=== PATIENT | female | born 1980 | race Caucasian/White ===

== ENCOUNTER → 2017-07-07 | Outpatient (CLI) | payer MEDICAID ==
--- NOTE | 2017-07-07 14:45 | XR ---
EXAMINATION TYPE: XR foot complete LT DATE OF EXAM: 07/07/2017 CLINICAL HISTORY: Injury with pain worse over third through fifth toes. TECHNIQUE: Frontal, lateral, and oblique images of the left foot are obtained. COMPARISON: None FINDINGS: There appears to be ossific fusion at this the fifth DIP joint. Seen best on frontal and oblique images there is oblique irregular linear lucency through this level with mild to moderate ass ociated soft tissue swelling consistent with acute nondisplaced fracture. Remainder of left foot is i ntact. There is small to moderate-sized superior calcaneal spur noted. IMPRESSION: There is a acute nondisplaced oblique fracture through fifth toe at level of ossified fi fth DIP joint. (Initial encounter closed type post traumatic fracture)
== END ==
LOC: RADXRMAIN 14:23
PROVIDERS: ATTEND Family Medicine
DX: S92.592A Other fracture of left lesser toe(s), initial encounter for closed fracture (principal)

== ENCOUNTER 2017-08-13 09:31 | Emergency (ER) | payer MEDICAID ==
--- NOTE | 2017-08-13 09:51 | ED ---
General Adult HPI - General Chief complaint: Animal Bite Stated complaint: DOG BITE Time Seen by Provider: 08/13/17 09:43 Source: patient, RN notes reviewed Mode of arrival: ambulatory Limitations: no limitations - History of Present Illness Initial comments: Patient is a 36-year-old female who presents emergency room today with chief complaint of dog bite to the right hand. She does admit that she was at home and to her dog got into a fight strength break them up and she does have a few punctures to the second and third digits of the right hand. She does admit that she is right-handed. She missed pain locally to this area. She states her tetanus is up-to-date. Patient denies any other complaints or symptoms. Patient denies any recent fever, chills, shortness of breath, chest pain, back pain, abdominal pain, nausea or vomiting, dysuria or hematuria, constipation or diarrhea, headaches or visual changes, or any other complaints. - Related Data Home Medications Medication Instructions Recorded Confirmed LORazepam [Ativan] 0.5 mg PO BID PRN 08/13/17 08/13/17 Sertraline HCl [Zoloft] 150 mg PO DAILY 08/13/17 08/13/17 buPROPion XL [Wellbutrin Xl] 150 mg PO DAILY 08/13/17 08/13/17 Previous Rx's Medication Instructions Recorded Ciprofloxacin HCl [Cipro] 500 mg PO Q12HR #20 day 08/13/17 Clindamycin HCl [Cleocin] 300 mg PO Q6HR 10 Days 08/13/17 Allergies Allergy/AdvReac Type Severity Reaction Status Date / Time Penicillins Allergy Rash/Hives Verified 08/13/17 10:27 Review of Systems ROS Statement: Those systems with pertinent positive or pertinent negative responses have been documented in the HPI. ROS Other: All systems not noted in ROS Statement are negative. Past Medical History Past Medical History: No Reported History History of Any Multi-Drug Resistant Organisms: None Reported Past Surgical History: No Surgical Hx Reported Past Psychological History: Anxiety, Depression Smoking Status: Never smoker Past Alcohol Use History: Occasional Past Drug Use History: None Reported General Exam - General Exam Comments Initial Comments: General: The patient is awake and alert, in no distress, and does not appear acutely ill. Neck: The neck is supple, there is no tenderness or JVD. Cardiovascular: There is a regular rate and rhythm. No murmur, rub or gallop is appreciated. Respiratory: Lungs are clear to auscultation, respirations are non-labored, breath sounds are equal. No wheezes, stridor, rales, or rhonchi. Musculoskeletal/skin: Patient does have superficial puncture wound to the volar aspect around the PIP joint of the second digit. There is small superficial abrasion to the posterior aspect in this area as well. Small superficial abrasion to the third digit of the posterior aspect at the PIP joint. Patient shows good range of motion. Cap refill less than 2 seconds. Sensations are intact. Pulses equal bilaterally 2+. Neurological: A&O x 3. CN II-XII intact, There are no obvious motor or sensory deficits. Coordination appears grossly intact. Speech is normal. Psychiatric: Normal mood and affect. Limitations: no limitations Course Vital Signs 08/13/17 09:34 Temperature 97.5 F L Pulse Rate 107 H Respiratory 16 Rate Blood Pressure 126/58 O2 Sat by Pulse 99 Oximetry Medical Decision Making - Medical Decision Making Patient's x-rays negative for any acute fracture dislocation. Results were discussed with the patient. Patient's tetanus is up-to-date. Patient's wounds were irrigated and soaked here in emergency room. No deep tissue involvement. Shows good range of motion. Patient does have ALLERGY to penicillins. Will be started on antibiotics of clindamycin and ciprofloxacin to cover for infection. Signs symptoms of infection were discussed with patient and advised to return if any symptoms increase worsen. She states understanding and is in agreement. Disposition Clinical Impression: Dog bite Disposition: HOME SELF-CARE Condition: Good Instructions: Animal Bite (ED) Additional Instructions: Please use medication as discussed. Please follow-up with family doctor in the next 2 days of symptoms have not improved. Please return to emergency room if the symptoms increase or worsen or for any other concerns. Prescriptions: Ciprofloxacin HCl [Cipro] 500 mg PO Q12HR #20 day Clindamycin HCl [Cleocin] 300 mg PO Q6HR 10 Days Referrals: Meir Aviles MD [Primary Care Provider] - 1-2 days Time of Disposition: 10:33
[2017-08-13] MEDS ORDERED: ONDANSETRON ODT 4 MG TAB PO STA (09:59)
--- NOTE | 2017-08-13 10:13 | XR ---
EXAMINATION TYPE: XR hand complete RT , 3 VIEWS DATE OF EXAM ORDERED: 08/13/2017 HISTORY: Pain. COMPARISON: None. FINDINGS: No fracture, dislocation or radiopaque foreign body is seen. IMPRESSION: NORMAL RIGHT HAND.
[2017-08-13 10:57] VITALS: BP 114/64; PULSE 78; RESP 18; TEMP 97.4
== END 2017-08-13 10:56 | disposition home or self-care (01) ==
LOC: EC 09:31
DX: S61.230A Puncture wound without foreign body of right index finger without damage to nail, initial encounter (principal); S60.412A Abrasion of right middle finger, initial encounter; F41.9 Anxiety disorder, unspecified; F32.9 Major depressive disorder, single episode, unspecified; Z88.0 Allergy status to penicillin; Z79.899 Other long term (current) drug therapy; W54.0XXA Bitten by dog, initial encounter; Y92.009 Unspecified place in unspecified non-institutional (private) residence as the place of occurrence of the external cause
CPT/HCPCS: 99283

== ENCOUNTER 2021-08-23 19:32 | Inpatient (IN) | payer MEDICAID ==
--- NOTE | 2021-08-23 22:38 | ED ---
Anxiety HPI - General Chief Complaint: Anxiety Stated Complaint: High Blood Pressure, Anxiety Time Seen by Provider: 08/23/21 20:57 Source: patient, RN notes reviewed Mode of arrival: wheelchair - History of Present Illness Initial Comments: Patient is a 40-year-old female that presents to emergency room complaining of anxiety. She notes that she wants to fall asleep and not wake up anymore. She noted that her son is a mental case and is causing her a lot of stress. She is not sure she can handle any more. Patient was very guarded on exam interview. She is otherwise well-appearing. She denied chest pain shortness of breath headache nausea vomiting diarrhea constipation fever fatigue chills. - Related Data Home Medications: Home Medications Medication Instructions Recorded Confirmed buPROPion XL [Wellbutrin Xl] 150 mg PO DAILY 08/13/17 08/23/21 DULoxetine HCL [Cymbalta] 60 mg PO DAILY 08/23/21 08/23/21 Glycopyrrolate 1 mg PO BID 08/23/21 08/23/21 Montelukast Sodium [Singulair] 10 mg PO HS 08/23/21 08/23/21 levoFLOXacin 500 mg PO DAILY 08/23/21 08/23/21 Allergies/Adverse Reactions: Allergies Allergy/AdvReac Type Severity Reaction Status Date / Time Penicillins Allergy Rash/Hives Verified 08/23/21 21:45 Review of Systems ROS Statement: Those systems with pertinent positive or pertinent negative responses have been documented in the HPI. ROS Other: All systems not noted in ROS Statement are negative. Past Medical History Past Medical History: No Reported History Additional Past Medical History / Comment(s): anxiety History of Any Multi-Drug Resistant Organisms: None Reported Past Surgical History: No Surgical Hx Reported Past Psychological History: Anxiety, Depression Smoking Status: Never smoker Past Alcohol Use History: Occasional Past Drug Use History: None Reported General Exam General appearance: alert, in no apparent distress, obese Head exam: Present: atraumatic, normocephalic, normal inspection Eye exam: Present: normal appearance, PERRL, EOMI. Absent: scleral icterus, conjunctival injection, periorbital swelling ENT exam: Present: normal exam, mucous membranes moist Neck exam: Present: normal inspection Respiratory exam: Present: normal lung sounds bilaterally. Absent: respiratory distress, wheezes, rales, rhonchi, stridor Cardiovascular Exam: Present: regular rate, normal rhythm, normal heart sounds. Absent: systolic murmur, diastolic murmur, rubs, gallop, clicks GI/Abdominal exam: Present: soft, normal bowel sounds. Absent: distended, tenderness, guarding, rebound, rigid Extremities exam: Present: normal inspection, full ROM, normal capillary refill. Absent: tenderness, pedal edema, joint swelling, calf tenderness Neurological exam: Present: alert, oriented X3 Psychiatric exam: Present: depressed, suicidal ideation. Absent: homicidal ideation Skin exam: Present: warm, dry, intact, normal color. Absent: rash Course Vital Signs 08/23/21 20:04 Temperature 98.7 F Pulse Rate 110 H Respiratory 22 Rate Blood Pressure 150/95 O2 Sat by Pulse 97 Oximetry Medical Decision Making - Medical Decision Making 40-year-old female displaying suicidal ideations and depression. Urine drug screen, breath alcohol test ordered. EPS was notified. EPS will admit patient to Case discussed with Dr. Tripathi Disposition Clinical Impression: Suicidal ideation, Depression Disposition: ADMITTED IP TO THIS HOSP Condition: Stable Instructions (If sedation given, give patient instructions): Generalized Anxiety Disorder (ED) Is patient prescribed a controlled substance at d/c from ED?: No Referrals: Meir Aviles MD [Primary Care Provider] - 1-2 days Time of Disposition: 22:38
[2021-08-23 23:18] LABS: Amphetamine Screen,Urine Not Detected (NotDetected); Barbiturate Screen,Urine Not Detected (NotDetected); Benzodiazepines Screen,Urine Not Detected (NotDetected); Cocaine Screen,Urine Not Detected (NotDetected); Methadone Screen, Urine Not Detected (NotDetected); Opiate Screen,Urine Not Detected (NotDetected); Oxycodone Screen, Urine Not Detected (NotDetected); Phencyclidine Screen,Urine Not Detected (NotDetected); Tricyclic Antidepressant,Urine Not Detected (NotDetected); Urn Cannabinoid Scrn Not Detected (NotDetected)
[2021-08-24] MEDS ORDERED: LORazepam 2 MG/ML INJ IM PRN (02:00)
[2021-08-24] MEDS ORDERED: MAGNESIUM HYDROXIDE 2,400 MG/10 ML CUP PO PRN (02:00)
[2021-08-24] MEDS ORDERED: haloperidoL 1 MG TAB PO PRN (02:00)
[2021-08-24] MEDS ORDERED: LORazepam 1 MG TAB PO PRN (02:00)
[2021-08-24] MEDS ORDERED: HALOPERIDOL LACTATE 5 MG/ML 1 ML VIAL IM PRN (02:00)
[2021-08-24] MEDS ORDERED: MAG HYDROX/AL HYDROX/SIMETH 30 ML CUP PO PRN (04:00)
[2021-08-24 08:25] LABS: Basophils # (A) 0.1 k/uL (0-0.2); Basophils % (A) 1 %; Eosinophils # (A) 0.5 k/uL (0-0.7); Eosinophils % (A) 3 %; HCT 36.6 % (34.0-46.0); HGB 11.3 gm/dL (11.4-16.0); Hypochromasia Moderate; Lymphocytes # (A) 3.2 k/uL (1.0-4.8); Lymphocytes % (A) 24 %; MCH 22.3 pg (25.0-35.0); MCHC 30.8 g/dL (31.0-37.0); MCV 72.4 fL (80.0-100.0); Mean Platelet Volume 6.4; Microcytosis Moderate; Monocytes # (A) 0.4 k/uL (0-1.0); Monocytes % (A) 3 %; Neutrophils % (A) 67 %; Platelet Count 481 k/uL (150-450); RBC 5.05 m/uL (3.80-5.40); RDW 15.5 % (11.5-15.5); WBC 13.4 k/uL (3.8-10.6)
[2021-08-24 08:33] LABS: ALT 21 U/L (4-34); AST 27 U/L (14-36); African American GFR (CKD) >90 (>60 ml/min/1.73 sqM); Albumin 4.1 g/dL (3.5-5.0); Alkaline Phosphatase 58 U/L (38-126); Anion Gap 8 mmol/L; Blood Urea Nitrogen 12 mg/dL (7-17); Calcium 9.6 mg/dL (8.4-10.2); Carbon Dioxide 30 mmol/L (22-30); Chloride 102 mmol/L (98-107); Glucose 106 mg/dL (74-99); Non-African American GFR(CKD) >90 (>60 ml/min/1.73 sqM); Sodium 140 mmol/L (137-145); Total Bilirubin 0.5 mg/dL (0.2-1.3); Total Protein 7.6 g/dL (6.3-8.2)
[2021-08-24] MEDS: LEVOFLOXACIN 500 MG TAB PO SCH (08:33)
[2021-08-24] MEDS: buPROPion XL 150 MG TAB.ER.24H PO SCH (08:33)
[2021-08-24] MEDS: GLYCOPYRROLATE 1 MG TAB PO SCH ×2 (08:33→21:08)
[2021-08-24] MEDS ORDERED: NICOTINE 14MG/24HR PATCH TRANSDERM SCH (09:00)
[2021-08-24] MEDS ORDERED: DULoxetine HCL 60 MG CAPSULE.DR PO SCH (09:00)
[2021-08-24] MEDS ORDERED: FERROUS SULFATE 325 MG TAB PO STA (11:53)
[2021-08-24] MEDS ORDERED: DULoxetine HCL 30 MG CAPSULE.DR PO ONE (12:00)
[2021-08-24] MEDS: OLANZapine 5 MG TAB PO SCH ×2 (12:25→21:08)
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
[2021-08-24] MEDS: MONTELUKAST 10 MG TAB PO SCH (21:08)
[2021-08-24] MEDS: ACETAMINOPHEN TAB 325 MG TAB PO PRN (21:14)
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
[2021-08-25] MEDS: PANTOPRAZOLE 40 MG TABLET PO SCH ×2 (08:42→17:29)
[2021-08-25] MEDS: OLANZapine 5 MG TAB PO SCH ×2 (08:42→20:35)
[2021-08-25] MEDS: buPROPion XL 150 MG TAB.ER.24H PO SCH (08:42)
[2021-08-25] MEDS: LEVOFLOXACIN 500 MG TAB PO SCH (08:42)
[2021-08-25] MEDS: DULoxetine HCL 30 MG CAPSULE.DR PO SCH (08:42)
[2021-08-25] MEDS: DOCUSATE 100 MG CAP PO SCH (08:42)
[2021-08-25] MEDS: GLYCOPYRROLATE 1 MG TAB PO SCH ×2 (08:42→20:35)
[2021-08-25] MEDS: BENZOCAINE/MENTHOL LOZENG 1 EACH LOZENGE MUCOUS MEM PRN ×3 (08:43→20:35)
[2021-08-25 10:47] LABS: % Iron Saturation 7.87 (12.00-45.00)
--- NOTE | 2021-08-25 15:05 | PN ---
PROGRESS NOTE DATE OF SERVICE: 08/25/2021 CHIEF COMPLAINT: The patient had high anxiety and depression. She was making statements that she wanted to fall asleep and not wake up. INTERVAL HISTORY: Patient has been doing fair. She had a quiet day yesterday. She comes out on the unit some. She tends to keep to herself. She will interact a little with others. She chose not to attend groups yesterday. She has been cooperative with care. She slept fair last night. Today she has been up. She comes out in the day area. So far today she has chosen not to attend groups also. Today when I talked to her she said that she has had a chance to think through some of her issues and has gained a little perspective. She said that she is not clear what happen where she went into a very severe panic. She says she cannot really point to anything specific that made things as bad as they were for her. She acknowledges that she has been struggling for quite a long time, especially dealing with her 16-year-old son who is on several psychotropic medications for mood difficulties. The patient says that actually things have been a little quieter with him in the home of late although it to be an up and down issue for her. She also acknowledges that her 's drinking is problematic as well. He is not able to help much in terms of supporting the 16-year-old. He has not been able to be very clear about the medications that the 16-year-old is taking since she has been in the hospital. She says most all that falls on her shoulders. She has not had difficulties with the change in her medications and in general tolerates her medications fairly well. MENTAL STATUS: Patient sat with a little restlessness. She gave fair eye contact. She answered questions appropriately. Her thoughts were clear and coherent. She was somewhat spontaneous at times. It was noteworthy that she was talking in a clear voice. She had a little more intonation in her voice. She did not have the whispering voice yesterday. She showed a little broader range of affect. Her mood was down, though also she seemed to be a little less depressed than how she presented yesterday. She continues to be moderately distressed. She acknowledges that she gets lost in her worries. There was no indication of thought disorder. She voices no thoughts of harm. Cognition was clear. ASSESSMENT: I will continue the current diagnosis and treatment plan. I will continue psychotropic medications the same. I reviewed issues with her antidepressant. I also reviewed indication for the start of a olanzapine. I reviewed potential side effects as well as metabolic and movement disorder issues. We talked about olanzapine as being potentially a short-term medication to help augment her antidepressant and potentially calm down some of her immediate stress reactions. We discussed that over the next few weeks if she is not if seeing much improvement overall, she may need to have further increase in her Cymbalta. I discussed discharge planning issues with the patient. NOAH / FANI: [id number] /
[2021-08-25] MEDS: MONTELUKAST 10 MG TAB PO SCH (20:35)
[2021-08-25] MEDS: ACETAMINOPHEN TAB 325 MG TAB PO PRN (20:35)
[2021-08-26] MEDS: GLYCOPYRROLATE 1 MG TAB PO SCH ×2 (08:10→20:04)
[2021-08-26] MEDS: DULoxetine HCL 30 MG CAPSULE.DR PO SCH (08:10)
[2021-08-26] MEDS: LEVOFLOXACIN 500 MG TAB PO SCH (08:10)
[2021-08-26] MEDS: OLANZapine 5 MG TAB PO SCH (08:10)
[2021-08-26] MEDS: buPROPion XL 150 MG TAB.ER.24H PO SCH (08:10)
[2021-08-26] MEDS: DOCUSATE 100 MG CAP PO SCH (08:10)
[2021-08-26] MEDS: PANTOPRAZOLE 40 MG TABLET PO SCH ×2 (08:11→20:02)
--- NOTE | 2021-08-26 10:37 | P.PN ---
Progress Note - Text Progress Note Date: 08/26/21 Interval History: Patient was seen lying in her bed this morning and was directable and agreeable to speak with manual writer in the office. And appeared to be fairly tired during the interview and states that her energy level is poor. She asked questions about her medications. She claimed that she came into the hospital because of her severe anxiety and "not wanting to wake up". She states that she is no longer feeling suicidal however does appear to be mildly depressed. She has a constricted affect. She states that she is able to sleep throughout the night fairly well. She claims that her anxiety has been mildly improving. She states that she is trying to go to some groups. She claims that she is feeling "anxious about my son" that she needs to take care of at home. At this time patient denies any current suicidal or homical ideations, intent or plan. Patient denies any auditory, visual hallucinations and denies any paranoia or delusions. Patient denies any side effects from the medications and has been compliant with meds. Mental Status Exam: General Appearance: Patient appears to be overweight, stated age is alert, directable, and attempts to be cooperative. Behavior: Patient is calmly seated without any agitated behavior. Constricted Speech: Patient's speech is fluent and nonpressured. Monotone Mood/Affect: Mood is improving mildly, affect is congruent and constricted. Suicidality/Homicidality: Patient denies having any suicidal or homicidal ideation intent or plan. Perceptions: Patient denies any visual hallucinations and denies any auditory hallucinations Though content/process: There is no evidence of any delusional thought content. [place]. Memory and concentration: AOX3, grossly intact for the purposes of this session Judgment and insight: Improving mildly Assessment Major depressive disorder, recurrent, severe without psychotic features Anxiety disorder unspecified, rule out panic disorder Plan: -Patient continues to meet criteria for inpatient psychiatric admission for symptom stabilization and safety. Patient has signed adult voluntary form and medication consent and was placed in patient's chart. -Medications: Discontinued Wellbutrin as this may be increasing patient's anxiety. Increase Cymbalta to 60 mg twice a day for depression/anxiety. Decrease Zyprexa to 5 mg daily at bedtime for mood stabilization/anxiety/insomnia. -When necessary Ativan and Haldol for agitation/aggression. -NRT - not needed as patient does not smoke. -SW on board for discharge planning. Encouraged the patient to participate in milieu. Likely discharge tomorrow back home.
[2021-08-26] MEDS: BENZOCAINE/MENTHOL LOZENG 1 EACH LOZENGE MUCOUS MEM PRN (20:02)
[2021-08-26] MEDS: DULoxetine HCL 60 MG CAPSULE.DR PO SCH (20:02)
[2021-08-26] MEDS: MONTELUKAST 10 MG TAB PO SCH (20:02)
[2021-08-26] MEDS ORDERED: OLANZapine 5 MG TAB PO SCH (21:00)
[2021-08-27 06:03] VITALS: BP 117/74; PULSE 95; RESP 18; TEMP 97.3
[2021-08-27] MEDS: LEVOFLOXACIN 500 MG TAB PO SCH (08:28)
[2021-08-27] MEDS: DULoxetine HCL 60 MG CAPSULE.DR PO SCH (08:28)
[2021-08-27] MEDS: GLYCOPYRROLATE 1 MG TAB PO SCH (08:28)
[2021-08-27] MEDS: PANTOPRAZOLE 40 MG TABLET PO SCH (08:28)
[2021-08-27] MEDS: DOCUSATE 100 MG CAP PO SCH (08:28)
[2021-08-27] MEDS: BENZOCAINE/MENTHOL LOZENG 1 EACH LOZENGE MUCOUS MEM PRN (08:29)
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
== END 2021-08-27 10:25 | disposition home or self-care (01) | DRG 885 ==
LOC: EC 19:32 → 3MHU 08-24 01:31
PROVIDERS: ADMIT Psychiatry & Neurology Psychiatry; ATTEND Psychiatry & Neurology Psychiatry
DX: F33.2 Major depressive disorder, recurrent severe without psychotic features (principal); R45.851 Suicidal ideations; F41.9 Anxiety disorder, unspecified; J45.909 Unspecified asthma, uncomplicated; G47.00 Insomnia, unspecified; Z20.822 Contact with and (suspected) exposure to COVID-19; Z79.899 Other long term (current) drug therapy; Z88.0 Allergy status to penicillin; Z88.1 Allergy status to other antibiotic agents; Z63.8 Other specified problems related to primary support group; Z81.8 Family history of other mental and behavioral disorders
CPT/HCPCS: 80053; 80061; 80306; 82075; 83036; 83540; 83550; 84443; 85025; 87635; 99285

== ENCOUNTER → 2021-10-18 | Outpatient (CLI) | payer MEDICAID ==
--- NOTE | 2021-10-18 12:00 | XR ---
EXAMINATION TYPE: XR foot complete LT DATE OF EXAM: 10/18/2021 CLINICAL HISTORY: Numbness and pain. TECHNIQUE: Frontal, lateral, and oblique images of the left foot are obtained. COMPARISON: Left foot x-ray July 07, 2017 FINDINGS: There is no acute fracture/dislocation evident in the left foot. Flexion in the toes is re demonstrated. Moderate-sized superior calcaneal spur redemonstrated. Mild to moderate dorsal surface spurring mid foot level more prominent from prior study. Mild diffuse subcutaneous edema is present. IMPRESSION: As above.
== END | disposition home or self-care (01) ==
LOC: RADXRMAIN 11:25
PROVIDERS: ATTEND Family Medicine
DX: M77.32 Calcaneal spur, left foot (principal); M21.272 Flexion deformity, left ankle and toes

== ENCOUNTER → 2021-10-27 | Outpatient (CLI) | payer MEDICAID ==
--- NOTE | 2021-10-27 20:09 | CONS ---
CONSULTATION DATE OF SERVICE: 10/27/2021 This 40-year-old lady has been evaluated in Sleep Center for excessive fatigue and sleepiness all the time. HISTORY OF PRESENT ILLNESS/SLEEP-WAKE EVALUATION: Patient's usual sleep schedule is 9:30 or 10 p.m. until 6 a.m. She does have problems with falling asleep, has TV set in bedroom. She usually sleeps on the side and stomach positions. She snores and wakes up from sleep 2 or 3 times with up to 2 episodes of nocturia. Nobody has mentioned to her that she has episodes of stopped breathing during sleep. In the morning she wakes up tired, has difficulties paying attention, falling asleep during the day, worries about her sleep, has problems with concentration, irritability, depression and anxiety. [place] Sleepiness Scale is significantly increased at 16. The patient may take naps any time. No history of hypnagogic hallucinations, sleep paralysis or cataplexy. The patient may move during the night; possibly periodic limb movements. PAST MEDICAL HISTORY: Positive for headaches, sinusitis, depression. PAST SURGICAL HISTORY: Bilateral surgery for carpal tunnel syndrome. MEDICATIONS: 1. Zyprexa 5 mg once a day. 2. Singulair 10 mg once a day. 3. Cymbalta 60 mg twice a day. 4. Colace 100 mg once a day. 5. Xanax 0.5 mg up to 3 times a day. REVIEW OF SYSTEMS: Awakenings from sleep, tiredness and sleepiness during the day. No fevers. No double vision. No recent chest pain. No shortness of breath. No abdominal pain. No bleeding episodes. No blood in the urine. No seizure episodes. SOCIAL HISTORY: Negative for smoking. Alcohol consumption extremely rarely. FAMILY HISTORY: Hypertension, hyperlipidemia, diabetes. PHYSICAL EXAMINATION: GENERAL APPEARANCE: Pleasant lady without distress. VITAL SIGNS: BP 141/91, HR 97, RR 20, height 5 feet 1-1/2 inches, weight 232.6 pounds, body mass index 43.1, temperature 97.4, oxygen saturation at room air 98%. HEENT: PERRLA, EOMI, evaluation of oropharynx showed tongue protrudes midline. Extremely low position of soft palate; Mallampati IV. NECK: Supple, no JVD. Thyroid is not palpable. Neck measures 17-1/2 inches in circumference. LUNGS: Clear to percussion and to auscultation. Good air exchange. No wheezing or rhonchi. HEART: S1, S2 regular. No murmurs, gallops, or rubs. ABDOMEN: Soft and nontender. Bowel sounds are present. No organomegaly appreciated. EXTREMITIES: No clubbing or cyanosis. 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 Cranial nerves 2 to 7 intact. There is no fasciculation or atrophy. noted. No focal deficits observed. IMPRESSION: 1. Snoring, awakenings from sleep, extremely low position of soft palate, wide neck, sleepiness; obstructive sleep apnea-hypopnea syndrome. 2. Significant excessive daytime sleepiness with [place] Sleepiness Scale of 16, dictating necessity to include hypersomnia in differential diagnosis. 3. Possible periodic limb movements. 4. Depression. 5. Sinus problems. 6. Headaches. 7. Status post bilateral surgery for carpal tunnel syndrome. PLAN: 1. Polysomnography for evaluation of patient's breathing during sleep. 2. Multiple sleep latency test if sleep study is negative for obstructive sleep apnea- hypopnea syndrome. 3. Losing weight. 4. Sleep hygiene with regular time in bed for at least 8 hours. 5. No driving if feeling sleepiness. 6. PAP titration if sleep study is positive for obstructive sleep apnea-hypopnea syndrome. Thank you very much for referring this patient for consultation. Sincerely, Romel Mendez MD, PhD, FAASM Diplomat of [place] Board of Medical Specialties Sleep Medicine Board of [place] Board of Internal Medicine Managed Care Analyst of [facility] [place] MMODL / IJN: [id number] /
== END ==
LOC: SLEEP 15:35
PROVIDERS: ATTEND Internal Medicine
DX: G47.33 Obstructive sleep apnea (adult) (pediatric) (principal); F32.A Depression, unspecified; J34.9 Unspecified disorder of nose and nasal sinuses; R51.9 Headache, unspecified; Z98.890 Other specified postprocedural states; Z79.899 Other long term (current) drug therapy; Z88.0 Allergy status to penicillin; Z88.1 Allergy status to other antibiotic agents
CPT/HCPCS: 99211

== ENCOUNTER → 2021-11-17 | Outpatient (CLI) | payer MEDICAID | END | disposition home or self-care (01) | LOC: LABWHC1 11:10 | PROVIDERS: ATTEND Family Medicine | DX: U07.1 COVID-19 (principal) | CPT/HCPCS: U0003; C9803 ==

== ENCOUNTER → 2021-12-22 | Outpatient (CLI) | payer MEDICAID ==
--- NOTE | 2021-12-22 15:29 | SFUN ---
SLEEP CENTER FOLLOW UP NOTE DATE OF VISIT: 12/22/2021 This 40-year-old lady has been followed in Sleep Center and came in to discuss results of her sleep studies and plan. The patient had a polysomnogram which showed that her respiration is in normal range. No significant periodic limb movements have been documented. Multiple sleep latency test on the following day confirmed significant sleepiness; mean sleep latency by 4 naps 3.275 minutes and by 5 naps 4.7 minutes. No sleep-onset REM periods were documented. The patient continues to feel sleepiness during the day. [place] Sleepiness Scale today is 14. MEDICATIONS: 1. Zyprexa 5 mg once a day. 2. Singulair 10 mg once a day. 3. Cymbalta 60 mg twice a day. 4. Colace 100 mg once a day. 5. Xanax 0.5 mg up to 3 times a day. PHYSICAL EXAMINATION: GENERAL: Pleasant patient in no distress. VITAL SIGNS: BP 152/86, HR 94, RR 18, weight 244.0, temperature 97.3, oxygen saturation at room air 98%. HEENT: PERRLA, EOMI, evaluation of oropharynx showed tongue protrudes midline. Extremely low position of soft palate; Mallampati IV. NECK: Supple, no JVD. Thyroid is not palpable. LUNGS: Clear to percussion and to auscultation. Good air exchange. No wheezing or rhonchi. HEART: S1, S2 regular. No murmurs, gallops, or rubs. ABDOMEN: Soft and nontender. Bowel sounds are present. No organomegaly appreciated. EXTREMITIES: No clubbing or cyanosis. 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 Cranial nerves 2 to 7 intact. There is no fasciculation or atrophy. noted. No focal deficits observed. IMPRESSION: 1. Snoring. 2. No significant respiratory abnormalities were documented during the sleep study. 3. Multiple sleep latency test confirmed sleepiness. Differential diagnosis includes narcolepsy without cataplexy and idiopathic hypersomnia. 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 5. Depression. 6. History of sinus problems. 7. Headaches. 8. Status post bilateral surgery for carpal tunnel syndrome. PLAN: 1. I will start the patient on Adderall 5 mg twice a day at 7 a.m. and 1 p.m. 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 2. Watching and losing weight. 3. Sleep hygiene with time in bed for at least 8 hours, preferably at the same time 7 days a week. 4. Precautions related to driving. No driving if feeling any sleepiness. Patient is aware of civil and criminal liability for unsafe driving. She promised to follow recommendations. 5. Patient is allowed to take additional naps during the day; I recommended that she have scheduled naps. 6. Follow-up visit in 3 months or earlier for adjustment of dose of medication if necessary. 7. Preferable position during sleep is on the side. Thank you very much for allowing me to participate in the management of your patient. Sincerely, Romel Mendez MD, PhD, FAASM Diplomat of [place] [employer] Specialties Sleep Medicine Board of [place] Board of Internal Medicine Food Operations Manager of [facility] [place] NOAH / FANI: [id number] /
== END ==
LOC: SLEEP 11:08
PROVIDERS: ATTEND Internal Medicine
DX: R40.0 Somnolence (principal); R06.83 Snoring; F32.A Depression, unspecified; R51.9 Headache, unspecified; Z98.890 Other specified postprocedural states; Z87.39 Personal history of other diseases of the musculoskeletal system and connective tissue; Z87.09 Personal history of other diseases of the respiratory system; Z88.0 Allergy status to penicillin; Z88.1 Allergy status to other antibiotic agents

== ENCOUNTER → 2022-03-10 | Outpatient (CLI) | payer MEDICAID ==
--- NOTE | 2022-03-10 11:45 | SFUN ---
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 Mean sleep latency was very short only 3.275 minutes by MSLT. The patient was started on treatment with Adderall 5 mg twice a day. With medication, no significant improvements of alertness. She feels better if she takes two tablets at the same time. [place] Sleepiness Scale today is 13. MEDICATIONS: Adderall 5 mg twice a day, Singulair 10 mg once a day, Cymbalta 60 mg twice a day, trazodone 100 mg once a day, Ativan 0.5 mg twice a day. PHYSICAL EXAMINATION: GENERAL: Patient in no distress. BP 126/81, HR around 100, RR 16, weight 234.8 pounds, temperature 97.1, oxygen saturation at room air 96%. Oropharynx: Low position of soft palate, Mallampati 4. NECK: Supple, no JVD. Thyroid is not palpable. LUNGS: Clear to percussion and to auscultation. Good air exchange. No wheezing or rhonchi. HEART: S1, S2 regular. No murmurs, gallops, or rubs. ABDOMEN: Soft and nontender. Bowel sounds are present. No organomegaly appreciated. EXTREMITIES: No clubbing or cyanosis. CLIENT SERVICES VICE PRESIDENT: Awake, alert, and oriented X3. Cranial nerves 2 to 7 intact. There is no fasciculation or atrophy. noted. No focal deficits observed. IMPRESSION: 1. 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 3. Depression. 4. History of sinus problems. 5. Headaches. 6. Status post bilateral surgery for carpal tunnel syndrome. PLAN: 1. The dose of Adderall will be increased to 10 mg twice a day during wake time. 2. Sleep hygiene with 7-1/2 to 8 hours time. 3. Losing weight. 4. Precautions related to driving. No driving if feeling sleepiness. 5. Additional naps permitted. Thank you very much for allowing me to participate in management of your patient. Sincerely, Romel Mendez MD, PhD, FAASM Diplomat of [place] [employer] Sleep Medicine Board of [place] [employer]anking Press Operator of [facility] [place] NOAH / FANI: [id number] / CRISTI
== END ==
LOC: SLEEP 10:04
PROVIDERS: ATTEND Internal Medicine
DX: G47.8 Other sleep disorders (principal); F32.A Depression, unspecified; Z87.09 Personal history of other diseases of the respiratory system; Z87.39 Personal history of other diseases of the musculoskeletal system and connective tissue; Z98.890 Other specified postprocedural states; Z88.0 Allergy status to penicillin; Z88.1 Allergy status to other antibiotic agents

== ENCOUNTER → 2022-04-06 | Outpatient (CLI) | payer MEDICAID ==
--- NOTE | 2022-04-06 12:34 | P.PN ---
Subjective 04/06/2022 41-year-old lady has been followed in the sleep center for possible narcolepsy type II. Patient was started on treatment with Adderall 5 mg twice a day and to then dose has been increased to 10 mg twice a day. Patient continued to feel significant sleepiness while on treatment with Adderall, [place] Sleepiness Scale increased to 13. Medications: Adderall 10 mg twice a day, Cymbalta 60 mg twice a day, Prozac 20 mg once a day, Singulair 10 mg once a day. During physical exam patient in no distress BP 126/81, HR 100, RR 15, weight 225, oxygen saturation at room air 98%, temperature 90.7. Oropharynx low position of soft palate Mallampati 4. Neck supple no JVD thyroid is not palpable Lungs clear to percussion and auscultation no wheezing or rhonchi. Heart S1-S2 regular Abdomen soft and nontender Extremities no clubbing or cyanosis. TAVERN KEEPER awake alert and oriented 3 no focal deficits observed. Impressions: 1.possible narcolepsy type II by results of M SLT 3.275 minutes, but without sleep onset REM periods. No improvements on Adderall at 10 mg twice a day. 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 History of sinusitis problems 5. Headaches 6. Status post bilateral surgery for carpal tunnel syndrome. Plan: 1.the dose of Adderall will be increased to 20 mg twice a day. 2. Sleep hygiene with regular time in bed for at least 7-1/28 hours. 3.precautions related to driving no driving if feeling sleepiness. 4. Naps permitted. 5. Follow up visit in one week. Thank you very much for allowing me to participate in the management of your patient sincerely
== END ==
LOC: SLEEP 10:50
PROVIDERS: ATTEND Internal Medicine
DX: Z09 Encounter for follow-up examination after completed treatment for conditions other than malignant neoplasm (principal); F32.A Depression, unspecified; Z87.39 Personal history of other diseases of the musculoskeletal system and connective tissue; Z87.09 Personal history of other diseases of the respiratory system; Z98.890 Other specified postprocedural states; Z88.0 Allergy status to penicillin; Z88.1 Allergy status to other antibiotic agents

== ENCOUNTER → 2022-04-14 | Outpatient (CLI) | payer MEDICAID ==
--- NOTE | 2022-04-14 11:58 | P.PN ---
Subjective 41-year-old lady has been followed in the sleep center for possible narcolepsy type II. With the increasing dose to 20 mg25 mg patient does feel improvements of her alertness. No side effects of medication. Medications: Adderall 20 mg twice a day, Cymbalta 60 mg twice a day, Prozac 20 mg once a day, Singulair 10 mg once a day. During physical exam patient in no distress BP 134/90, HR 100, RR 15, weight 223, oxygen saturation at room air 98%, temperature 96.7. Oropharynx low position of soft palate Mallampati 4. Neck supple no JVD thyroid is not palpable Lungs clear to percussion and auscultation no wheezing or rhonchi. Heart S1-S2 regular Abdomen soft and nontender Extremities no clubbing or cyanosis. MANAGER STATISTICAL PROGRAMMING awake alert and oriented 3 no focal deficits observed. Impressions: 1.possible narcolepsy type II by results of M SLT 3.275 minutes, but without sleep onset REM periods. Patient improved on Adderall at 20 mg twice a day. 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 History of sinusitis problems 5. Headaches 6. Status post bilateral surgery for carpal tunnel syndrome. Plan: 1.Continue Adderall 20 mg twice a day. 2. Sleep hygiene with regular time in bed for at least 7-11/26 hours. 3.precautions related to driving no driving if feeling sleepiness. 4. Naps permitted. 5. Follow up visit in 2 months. Thank you very much for allowing me to participate in the management of your patient sincerely
== END ==
LOC: SLEEP 11:03
PROVIDERS: ATTEND Internal Medicine
DX: Z09 Encounter for follow-up examination after completed treatment for conditions other than malignant neoplasm (principal); F32.A Depression, unspecified; Z79.899 Other long term (current) drug therapy; Z87.09 Personal history of other diseases of the respiratory system; R51.9 Headache, unspecified; Z87.39 Personal history of other diseases of the musculoskeletal system and connective tissue; Z98.890 Other specified postprocedural states; Z88.0 Allergy status to penicillin; Z88.1 Allergy status to other antibiotic agents

== ENCOUNTER → 2022-05-25 | Outpatient (CLI) | payer MEDICAID ==
[2022-05-25 19:03] LABS: Basophils # (A) 0.04 X 10*3/uL (0.00-0.10); Basophils % (A) 0.5 %; Eosinophils # (A) 0.15 X 10*3/uL (0.04-0.35); Eosinophils % (A) 1.9 %; HCT 42.5 % (37.2-46.3); Immature Grans, Automated 0.2 %; Lymphocytes # (A) 1.59 X 10*3/uL (0.90-5.00); Lymphocytes % (A) 19.8 %; MCH 25.7 pg (27.0-32.0); MCHC 30.6 g/dL (32.0-37.0); MCV 84.2 fL (80.0-97.0); Mean Platelet Volume 10.7 fL (9.5-12.2); Monocytes # (A) 0.37 X 10*3/uL (0.20-1.00); Monocytes % (A) 4.6 %; NRBC Per 100 WBC 0 /100 WBCS (0.0-0.0); Neutrophils # (A) 5.87 X 10*3/uL (1.80-7.70); Platelet Count 362 X 10*3/uL (140-440); RBC 5.05 X 10*6/uL (4.10-5.20); RDW 14.7 % (11.5-14.5); WBC 8.04 X 10*3/uL (4.50-10.00)
[2022-05-25 22:20] LABS: African American GFR (CKD) 87.1 (60.0-200.0); Albumin 4.2 g/dL (3.8-4.9); Albumin/Globulin Ratio 1.46 (1.60-3.17); Anion Gap 11.5 mmol/L (10.00-18.00); BUN/Creat Ratio 12.81 Ratio (12.00-20.00); Calcium 9.8 mg/dL (8.7-10.3); Carbon Dioxide 28.5 mmol/L (20.0-27.5); Globulin 2.9 g/dL (1.6-3.3); Non-African American GFR(CKD) 75.1 (60.0-200.0); Potassium 4.5 mmol/L (3.5-5.5); T4, Free (Free Thyroxine) 0.9 ng/dL (0.800-1.800); Total Bilirubin 0.3 mg/dL (0.30-1.20); Total Protein 7.1 g/dL (6.2-8.2)
[2022-05-26 03:17] LABS: Clam IgE <0.10 kU/L; Codfish IgE <0.10 kU/L; Egg White IgE 0.15 kU/L; Peanut IgE <0.10 kU/L; Scallop IgE <0.10 kU/L; Shrimp IgE <0.10 kU/L; Soybean IgE <0.10 kU/L; Walnut IgE (Food) <0.10 kU/L
[2022-05-26 12:20] LABS: Alt. alternata IgE Class CLASS 0; Alternaria alternata IgE <0.10 kU/L (<0.10); Asperg. fumagatus IgE <0.10 kU/L (<0.10); Asperg. fumagatus IgE Class CLASS 0; Bermuda Grass IgE <0.10 kU/L (<0.10); Birch(Com.Silvr) IgE <0.10 kU/L (<0.10); Birch(Com.Silvr) IgE Class CLASS 0; Cat Epith & Dander IgE 1.47 kU/L (<0.10); Cat Epith & Dander IgE Class CLASS 2; Clad herbarum IgE <0.10 kU/L (<0.10); Clad herbarum IgE Class CLASS 0; Cockroach IgE <0.10 kU/L (<0.10); Cottonwood IgE <0.10 kU/L (<0.10); Dermato. Pteronyssinus Class CLASS 0; Dermato. Pteronyssinus IgE <0.10 kU/L (<0.10); Dermato. farinae IgE <0.10 kU/L (<0.10); Dermato. farinae IgE Class CLASS 0; Dog Dander IgE 0.13 kU/L (<0.10); Elm IgE <0.10 kU/L (<0.10); IgE (Allergen) 44.3 IU/mL (<114.0); Maple (Box Elder) IgE <0.10 kU/L (<0.10); Maple (Box Elder) IgE Class CLASS 0; Mountain Cedar IgE <0.10 kU/L (<0.10); Mountain Cedar IgE Class CLASS 0; Mouse Urine IgE Class CLASS 0; Mouse Urine Proteins,IgE <0.10 kU/L (<0.10); Nettle IgE <0.10 kU/L (<0.10); Nettle IgE Class CLASS 0; Oak IgE <0.10 kU/L (<0.10); Penicillium chrysogenum IgE <0.10 kU/L (<0.10); Penicillium chrysogenum IgE Cl CLASS 0; Rough Marshelder IgE <0.10 kU/L (<0.10); Rough Marshelder IgE Class CLASS 0; Timothy Grass IgE <0.10 kU/L (<0.10); Timothy Grass IgE Class CLASS 0; White Ash IgE Class CLASS 0
== END | disposition home or self-care (01) ==
LOC: LABWHC1 12:54
PROVIDERS: ATTEND Family Medicine
DX: T78.40XA Allergy, unspecified, initial encounter (principal); F33.1 Major depressive disorder, recurrent, moderate; L50.9 Urticaria, unspecified
CPT/HCPCS: 36415; 80053; 82785; 84439; 84443; 85025; 86003

== ENCOUNTER → 2022-07-14 | Outpatient (CLI) | payer MEDICAID ==
--- NOTE | 2022-07-14 11:39 | P.PN ---
Subjective DATE: 07/14/2022 FOLLOW UP VISIT. Patient returned to sleep center for follow-up visit related to treatment of significant excessive daytime sleepiness secondary to possible narcolepsy2. Multiple sleep latency test showed extremely short sleep latency 3.275 minutes, but without sleep onset REM periods Presently patient is on treatment with Adderall 20 mg twice a day. Avalide that medication patient is able to control to undergo apneas during the day, but feels that she'll possibly rate sometimes increasing more then before she used Adderall. . [place] sleepiness scale is slightly increased to 12. MEDICATIONS:1. Adderall 20 mg twice a day 2. Cymbalta 60 mg once a day 3. Ativan 0.5 mg twice a day 4. Lamictal 5. Iron supplement During physical exam: GENERAL: A pleasant patient without any distress. VITAL SIGNS: BP 147/89, HR 109, RR 20, weight 215.4, temperature 97.3, oxygen saturation at room air 99%. HEENT: PERRLA, EOMI. NECK: Supple. No JVD. LUNGS: Clear to percussion and to auscultation. Good air exchange. No wheezing or rhonchi. HEART: S1, S2 regular. ABDOMEN: Soft and nontender. EXTREMITIES: No clubbing or cyanosis. PENCIL INSPECTOR: Awake, alert, and oriented x3. No focal deficit. Impressions: 1. Significant excessive daytime sleepiness confirmed by multiple sleep latency test. Mean sleep latency 3.275 minutes, but without sleep onset REM periods. Possibly narcolepsy 2. 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 3. Depression. 4. History of cyanosis problems. 5. Headaches. 6. Status post bilateral surgical treatment of carpal tunnel syndrome. Plan: 1. Patient will continue treatment with Adderall 20 mg twice a day. I will start patient on modafinil 200 mg in the morning with the goal to decrease dose of Adderall. 2. Sleep hygiene with regular time in bed for at least 8 hours. 3. Daytime naps permitted 4. Precautions related to driving. No driving if feel any sleepiness. Patient is aware about civil and criminal liability for unsafe driving, promised to follow recommendations. 5. Follow up visit in 2-3 months or earlier if patient has any problems. Thank you very much for allowing me to participate in the management of your patient. Romel Mendez MD, PhD, FAASM. Diplomat of [place] [employer], Sleep Medicine Board by [place] [employer] Aircraft Sheet Metal Mechanic of [facility] [place]
== END ==
LOC: SLEEP 10:39
PROVIDERS: ATTEND Internal Medicine
DX: G47.10 Hypersomnia, unspecified (principal); F32.A Depression, unspecified; R51.9 Headache, unspecified; Z87.39 Personal history of other diseases of the musculoskeletal system and connective tissue; Z98.890 Other specified postprocedural states; Z79.899 Other long term (current) drug therapy; Z88.0 Allergy status to penicillin; Z88.1 Allergy status to other antibiotic agents

== ENCOUNTER 2022-10-03 11:20 | Emergency (ER) | payer MEDICAID ==
[2022-10-03 12:08] VITALS: TEMP 97.8
--- NOTE | 2022-10-03 12:28 | XR ---
EXAMINATION TYPE: XR chest 2V DATE OF EXAM: 10/03/2022 COMPARISON: NONE HISTORY: Chest pain TECHNIQUE: Frontal and lateral views of the chest are obtained. FINDINGS: There is no focal air space opacity. No evidence for pneumothorax. No pleural effusion. The cardiac silhouette size is within normal limits. The osseous structures are grossly intact. IMPRESSION: 1. No acute cardiopulmonary process.
--- NOTE | 2022-10-03 15:10 | ED ---
Chest Pain HPI - General Source: patient, RN notes reviewed, old records reviewed Mode of arrival: ambulatory Limitations: no limitations <Pedro Allen - Last Filed: 10/03/22 15:53> <Maico Jimenez - Last Filed: 10/03/22 17:23> - General Chief Complaint: Chest Pain Stated Complaint: chest pain Time Seen by Provider: 10/03/22 14:55 - History of Present Illness Initial Comments: This is a 41-year-old female presents emergency Department complaining of chest tightness for one week. Patient states she saw her therapist and told her therapist she's been having this chest tightness and the therapist recommended she come to the ER. Patient denies any shortness of breath or difficulty breathing. Patient denies any fever chills or cough per patient states she's been under an enormous amount of stress lately and she does have a history of anxiety. Patient denies any abdominal pain patient denies nausea vomiting diarrhea. Patient's headache patient denies numbness weakness. Patient denies any leg swelling or calf tenderness. (Pedro Allen) - Related Data Home Medications Medication Instructions Recorded Confirmed Dextroamphetamine/Amphetamine 20 mg PO BID@0700,1300 10/03/22 10/03/22 [Adderall] LORazepam [Ativan] 0.5 mg PO BID PRN 10/03/22 10/03/22 lamoTRIgine [LaMICtal] 25 mg PO BID 10/03/22 10/03/22 modafiniL [Provigil] 200 mg PO DAILY 10/03/22 10/03/22 Previous Rx's Medication Instructions Recorded DULoxetine HCL [Cymbalta] 60 mg PO BID 30 Days capsule 08/27/21 Montelukast Sodium [Singulair] 10 mg PO HS 30 Days tab 08/27/21 Allergies Allergy/AdvReac Type Severity Reaction Status Date / Time Penicillins Allergy Rash/Hives Verified 10/03/22 15:57 clindamycin AdvReac Nausea & Verified 10/03/22 15:57 Vomiting Review of Systems ROS Other: All systems not noted in ROS Statement are negative. <Pedro Allen - Last Filed: 10/03/22 15:53> ROS Other: All systems not noted in ROS Statement are negative. <Maico Jimenez - Last Filed: 10/03/22 17:23> ROS Statement: Those systems with pertinent positive or pertinent negative responses have been documented in the HPI. Past Medical History Past Medical History: No Reported History Additional Past Medical History / Comment(s): anxiety History of Any Multi-Drug Resistant Organisms: None Reported Past Surgical History: No Surgical Hx Reported Past Psychological History: Anxiety, Depression Smoking Status: Never smoker <Pedro Allen - Last Filed: 10/03/22 15:53> General Exam Limitations: no limitations <Pedro Allen - Last Filed: 10/03/22 15:53> - General Exam Comments Initial Comments: GENERAL: Patient is well-developed and well-nourished. Patient is nontoxic and well- hydrated and is in no acute distress. ENT: Neck is soft and supple. No significant lymphadenopathy is noted. Oropharynx is clear. Moist mucous membranes. Neck has full range of motion without eliciting any pain. EYES: The sclera were anicteric and conjunctiva were pink and moist. Extraocular movements were intact and pupils were equal round and reactive to light. Eyelids were unremarkable. PULMONARY: Unlabored respirations. Good breath sounds bilaterally. No audible rales rhonchi or wheezing was noted. CARDIOVASCULAR: There is a regular rate and rhythm without any murmurs gallops or rubs. ABDOMEN: Soft and nontender with normal bowel sounds. SKIN: Skin is clear with no lesions or rashes and otherwise unremarkable. NEUROLOGIC: Patient is alert and oriented x3. Cranial nerves II through XII are grossly intact. Motor and sensory are also intact. Normal speech, volume and content. Symmetrical smile. MUSCULOSKELETAL: Normal extremities with adequate strength and full range of motion. No lower extremity swelling or edema. No calf tenderness. LYMPHATICS: No significant lymphadenopathy is noted PSYCHIATRIC: Patient seems mildly anxious (Pedro Allen) Course Vital Signs 10/03/22 10/03/22 11:51 12:04 Temperature 97 F L 97.8 F Pulse Rate 91 93 Respiratory 16 16 Rate Blood Pressure 156/85 142/83 O2 Sat by Pulse 99 98 Oximetry Chest Pain [facility] <Pedro Allen - Last Filed: 10/03/22 15:53> <Maico Jimenez - Last Filed: 10/03/22 17:23> - [facility] EKG was interpreted by me. EKG shows sinus rhythm 82 bpm MS interval 164 QRS is 102 QT interval 352 QTC is 391 per patient's EKG shows no ST segment elevation or depression. Dr. Jimenez will be taking over the care of this patient at 4 PM (Pedro Allen) I assumed care of this patient from Dr. Allen. The patient was sent no pending completion of the laboratory workup. Laboratory workup showed a potassium of 5.8 but did show slight hemolysis. There was no EKG changes noted therefore no further management will be given for this lab value. The patient continued to remain stable and on my reevaluation stated that the chest pain is been persistent" hasn't changed even with Ativan." The patient was here to be seen and evaluated for this chest pain has been present the last 1 week on the recommendation of her therapist. The patient was told of the negative results and was relieved and stated that she was now ready to go home. I did advise the patient to follow-up with her primary care physician as well as a guest relations coordinator as an outpatient for further workup and evaluation of this continued chest pain. The patient was agreeable to this and all of her questions were answered. The patient was discharged home in stable condition. (Maico Jimenez) Disposition <Pedro Allen - Last Filed: 10/03/22 15:53> Is patient prescribed a controlled substance at d/c from ED?: No Time of Disposition: 17:20 <Maico Jimenez - Last Filed: 10/03/22 17:23> Clinical Impression: Atypical chest pain Disposition: HOME SELF-CARE Condition: Stable Instructions (If sedation given, give patient instructions): Chest Pain (ED) Referrals: Meir Aviles MD [Primary Care Provider] - 1-2 days
[2022-10-03 15:58] LABS: Basophils # (A) 0.1 k/uL (0-0.2); Basophils % (A) 1 %; Eosinophils # (A) 0.2 k/uL (0-0.7); Eosinophils % (A) 2 %; HCT 38.8 % (34.0-46.0); HGB 12.7 gm/dL (11.4-16.0); Hypochromasia Slight; Lymphocytes % (A) 22 %; MCH 27.1 pg (25.0-35.0); MCHC 32.6 g/dL (31.0-37.0); Mean Platelet Volume 8.4; Monocytes # (A) 0.2 k/uL (0-1.0); Monocytes % (A) 3 %; Neutrophils # (A) 6.4 k/uL (1.3-7.7); Neutrophils % (A) 71 %; Platelet Count 390 k/uL (150-450); RBC 4.68 m/uL (3.80-5.40); RDW 14.1 % (11.5-15.5)
[2022-10-03 16:24] LABS: ALT 23 U/L (4-34); AST 49 U/L (14-36); African American GFR (CKD) >90 (>60 ml/min/1.73 sqM); Albumin 4.4 g/dL (3.5-5.0); Alkaline Phosphatase 68 U/L (38-126); Anion Gap 8 mmol/L; Blood Urea Nitrogen 15 mg/dL (7-17); Carbon Dioxide 24 mmol/L (22-30); Chloride 104 mmol/L (98-107); Glucose 103 mg/dL (74-99); Non-African American GFR(CKD) >90 (>60 ml/min/1.73 sqM); Sodium 136 mmol/L (137-145); Total Protein 8.1 g/dL (6.3-8.2)
[2022-10-03 16:31] LABS: Potassium 5.8 mmol/L (3.5-5.1)
[2022-10-03 17:11] LABS: Partial Thromboplastin Time 25.9 sec (22.0-30.0); Prothrombin Time 10.2 sec (9.0-12.0)
[2022-10-03 17:49] VITALS: BP 155/92; PULSE 85; RESP 18
== END 2022-10-03 17:49 | disposition home or self-care (01) ==
LOC: EC 11:20
DX: R07.89 Other chest pain (principal); F41.9 Anxiety disorder, unspecified; F32.A Depression, unspecified; Z88.1 Allergy status to other antibiotic agents; Z88.0 Allergy status to penicillin
CPT/HCPCS: 36415; 71046; 80053; 83735; 84484; 85025; 85610; 85730; 87502; 87635; 93005; 99285

== ENCOUNTER → 2022-10-05 | Outpatient (CLI) | payer MEDICAID ==
--- NOTE | 2022-10-05 12:18 | P.PN ---
Subjective DATE: 10/05/2022 FOLLOW UP VISIT. Patient returned to sleep center for follow-up visit related to treatment of significant excessive daytime sleepiness secondary to narcolepsy. Patient is on treatment with Adderall 20 mg twice a day and modafinil 200 mg in the morning. . [place] sleepiness scale is slightly increased to 12. MEDICATIONS:1. Cymbalta 60 mg twice a day 2. Lamictal 25 mg twice a day 3. Ativan 0.5 mg up to 3 times a day 4. Modafinil 200 mg once a day in the morning 5. Adderall 20 mg twice a day 6. Singulair 10 mg once a day During physical exam: GENERAL: A pleasant patient without any distress. VITAL SIGNS: BP 138/91, HR 96, RR 16, weight 202.4, temperature 97.1, oxygen saturation at room air 98%. HEENT: PERRLA, EOMI. NECK: Supple. No JVD. LUNGS: Clear to percussion and to auscultation. Good air exchange. No wheezing or rhonchi. HEART: S1, S2 regular. ABDOMEN: Soft and nontender. EXTREMITIES: No clubbing or cyanosis. MANDOLIN REPAIR PERSON: Awake, alert, and oriented x3. No focal deficit. Impressions: 1. 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 3. Headaches. 4. History of sinuses problems. 5. Status post bilateral surgery for carpal tunnel syndrome. Plan: 1. Patient will continue treatment with Adderall 20 mg twice a day and modafinil 200 mg in the morning. 2. Sleep hygiene with regular time in bed for at least 8 hours. 3. Daytime naps permitted 4. Precautions related to driving. No driving if feel any sleepiness. Patient is aware about civil and criminal liability for unsafe driving, promised to follow recommendations. 5. Follow up visit in 4-6 months or earlier if patient has any problems. Thank you very much for allowing me to participate in the management of your patient. Romel Mendez MD, PhD, FAASM. Diplomat of [place] [employer], Sleep Medicine Board by [place] [employer] Hadoop Developer of [facility] [place]
== END ==
LOC: SLEEP 10:32
PROVIDERS: ATTEND Internal Medicine
DX: R51.9 Headache, unspecified (principal); Z87.09 Personal history of other diseases of the respiratory system; G56.03 Carpal tunnel syndrome, bilateral upper limbs; Z88.0 Allergy status to penicillin; Z88.1 Allergy status to other antibiotic agents
CPT/HCPCS: 99212

== ENCOUNTER → 2023-01-27 | Outpatient (CLI) | payer MEDICAID ==
--- NOTE | 2023-01-28 10:18 | MR ---
EXAMINATION TYPE: MR brain wo con DATE OF EXAM: 01/27/2023 11:41 AM COMPARISON: CT brain 01/06/2023. CLINICAL INDICATION:Female, 42 years old with history of Q07.00; Memory issues with bi-lat hearing lo ss TECHNIQUE: Multi planar, multi sequence imaging was performed through the brain including: T1, T2, In version recovery, Diffusion weighted imaging, and gradient echo imaging. No gadolinium was given. FINDINGS: The siu-white junctions, ventricular system, and cisterns appear unremarkable. Minimal white matter changes in the right frontal lobe with high T2 signal intensity within the periventricular white mat ter. Midline structures show no abnormality. Diffusion-weighted imaging shows no evidence of restrict ed diffusion. The susceptibility weighted images do not reveal any evidence for micro-hemorrhage. Cer ebellar tonsils do not extend below the foramen magnum. The 7th and 8th cranial nerves are grossly no rmal. The temporal bones are without abnormality to explain the patient's hearing loss. The bone marrow signal is within normal limits. Paranasal sinuses and mastoid air cells: No significant paranasal sinus disease. Visualized orbits: Orbital contents are intact. IMPRESSION: 1. No evidence of intracranial mass or acute/subacute infarct. 2. Minimal nonspecific white matter changes in the right frontal lobe. 3. Cerebellar tonsils do not extend below the foramen magnum.
== END | disposition home or self-care (01) ==
LOC: RADMRIMAIN 11:10
PROVIDERS: ATTEND Family Medicine
DX: Q07.00 Arnold-Chiari syndrome without spina bifida or hydrocephalus (principal); R90.82 White matter disease, unspecified
CPT/HCPCS: 70551

== ENCOUNTER → 2023-03-10 | Outpatient (CLI) | payer MEDICAID ==
--- NOTE | 2023-03-10 13:27 | MR ---
EXAMINATION TYPE: MR lumbar spine wo con DATE OF EXAM: 03/10/2023 COMPARISON: None HISTORY: Low back pain into buttocks and rt lower extremity TECHNIQUE: Multiplanar, multisequence images of the lumbar spine were acquired without IV contrast. FINDINGS: Lumbar segments are intact. No paraspinal masses are identified. Conus medullaris has a normal appe arance. Slightly decreased low signal throughout the vertebral bodies. Disc desiccation is present at L5-S1. 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 T12-L1: Normal disc appearance without desiccation. No herniation, protrusion or disc bulging. No c anal stenosis is present. Foramina are patent bilaterally. L1-L2: Normal disc appearance without desiccation. No herniation, protrusion or disc bulging. No ca nal stenosis is present. Foramina are patent bilaterally. L2-L3: Normal disc appearance without desiccation. No herniation, protrusion or disc bulging. No ca nal stenosis is present. Foramina are patent bilaterally. L3-L4: Normal disc appearance without desiccation. No herniation, protrusion or disc bulging. No ca nal stenosis is present. Foramina are patent bilaterally. L4-L5: Normal disc appearance without desiccation. No herniation, protrusion or disc bulging. No ca nal stenosis is present. Foramina are patent bilaterally. L5-S1: Disc loss height with disc desiccation. Broad-based disc bulge without significant central can al stenosis. Bilateral facet arthropathy. No neural foraminal stenosis. IMPRESSION: 1. No significant central canal stenosis or disc herniation. 2. Mild degenerative disc disease at L5-S1. 3.vDiffuse red marrow conversion can be seen in the setting of tobacco abuse, anemia, or myeloprolife rative disorder.
== END | disposition home or self-care (01) ==
LOC: RADMRIMAIN 12:30
PROVIDERS: ATTEND Nurse Practitioner Family
DX: M47.26 Other spondylosis with radiculopathy, lumbar region (principal); M51.17 Intervertebral disc disorders with radiculopathy, lumbosacral region
CPT/HCPCS: 72148

== ENCOUNTER → 2023-03-20 | Outpatient (CLI) | payer MEDICAID ==
[2023-03-20 20:31] LABS: ALT 26 U/L (8-44); AST 20 U/L (13-35); African American GFR (CKD) 104.7 (60.0-200.0); Albumin 4.1 g/dL (3.8-4.9); Albumin/Globulin Ratio 1.46 (1.60-3.17); Alkaline Phosphatase 58 U/L (41-126); BUN/Creat Ratio 21.63 Ratio (12.00-20.00); Blood Urea Nitrogen 17.3 mg/dL (9.0-27.0); Calcium 9.8 mg/dL (8.7-10.3); Carbon Dioxide 28.9 mmol/L (20.0-27.5); Chloride 104 mmol/L (96-109); Globulin 2.8 g/dL (1.6-3.3); Glucose 96 mg/dL (70-110); Non-African American GFR(CKD) 90.3 (60.0-200.0); Potassium 4.6 mmol/L (3.5-5.5); Sodium 143 mmol/L (135-145); Total Bilirubin <0.15 mg/dL (0.30-1.20); Total Protein 6.9 g/dL (6.2-8.2)
== END | disposition home or self-care (01) ==
LOC: LABWHC1 14:00
PROVIDERS: ATTEND Family Medicine
DX: F33.1 Major depressive disorder, recurrent, moderate (principal); F41.9 Anxiety disorder, unspecified; R20.9 Unspecified disturbances of skin sensation
CPT/HCPCS: 36415; 80053

== ENCOUNTER → 2023-04-04 | Outpatient (CLI) | payer MEDICAID ==
--- NOTE | 2023-04-07 22:07 | CE ---
48 HOUR EVENT MONITOR REPORT A 48-hour Event monitor INDICATIONS: Rule out cardiac arrhythmia. FINDINGS: The patient was monitored for 48 hours. The baseline rhythm appeared to be sinus mechanism with a minimum heart rate of 65 beats per minute and max heart rate of 145 beats per minute and average heart rate of 103 beats per minute. Ventricular ectopic events noted in less than 1% of the total beats count. Supraventricular ectopic events noted also in less than 1% of the total beats count. No evidence of any sinus pause or sinus arrest. No evidence of any atrial fibrillation or atrial flutter. The patient reports symptoms of shoulder pain, arm pain, and chest pain and all of that associated with sinus rhythm. CONCLUSION: 1. Sinus rhythm with sinus tachycardia as a baseline rhythm. 2. Rare ventricular and supraventricular ectopic events. 3. No evidence of any atrial fibrillation or atrial flutter. 4. No evidence of any sinus pause or sinus arrest. 5. No evidence of any advanced AV block. 6. The patient reported symptoms of arm pain, shoulder pain, back pain, and chest pain. All of these were associated with sinus rhythm. MMODL / IJN: [id number] / MTDJessica
== END | disposition home or self-care (01) ==
LOC: RADECHMAIN 12:19
PROVIDERS: ATTEND Family Medicine
DX: R00.0 Tachycardia, unspecified (principal); R00.2 Palpitations
CPT/HCPCS: 93225; 93226

== ENCOUNTER 2023-04-06 21:53 | Emergency (ER) | payer MEDICAID ==
[2023-04-06 22:13] VITALS: TEMP 97.8
[2023-04-06] MEDS ORDERED: Acetaminophen-Codeine 300-30mg TAB PO STA (22:24)
[2023-04-06] MEDS ORDERED: ACET/COD 300 MG/30 MG STARTER PACK 6 TAB BTL PO STA (22:24)
[2023-04-06] MEDS ORDERED: ONDANSETRON 4 MG ODT STARTER PACK 2 TAB BTL PO STA (22:24)
[2023-04-06] MEDS ORDERED: ONDANSETRON ODT 4 MG TAB PO STA (22:25)
--- NOTE | 2023-04-06 22:39 | ED ---
ENT HPI - General Chief complaint: Dental/Oral Stated complaint: Toothache Time Seen by Provider: 04/06/23 22:14 Source: patient Mode of arrival: ambulatory Limitations: no limitations - History of Present Illness Initial comments: 42-year-old female presenting with chief complaint of dental pain. Patient has had dental pain to the left upper side ongoing for the last 3 to by her oral surgeon today and was started on levofloxacin. She was unable to bean picker her prescription from the pharmacy today. She is complaining of continued pain. She has taken ibuprofen and tramadol at home. No difficulty breathing or swallowing. No fevers or chills. - Related Data Home Medications Medication Instructions Recorded Confirmed Dextroamphetamine/Amphetamine 20 mg PO BID@0700,1300 10/03/22 10/03/22 [Adderall] LORazepam [Ativan] 0.5 mg PO BID PRN 10/03/22 10/03/22 lamoTRIgine [LaMICtal] 25 mg PO BID 10/03/22 10/03/22 modafiniL [Provigil] 200 mg PO DAILY 10/03/22 10/03/22 Previous Rx's Medication Instructions Recorded DULoxetine HCL [Cymbalta] 60 mg PO BID 30 Days capsule 08/27/21 Montelukast Sodium [Singulair] 10 mg PO HS 30 Days tab 08/27/21 Allergies Allergy/AdvReac Type Severity Reaction Status Date / Time Penicillins Allergy Rash/Hives Verified 04/06/23 22:13 clindamycin AdvReac Nausea & Verified 04/06/23 22:13 Vomiting Review of Systems ROS Statement: Those systems with pertinent positive or pertinent negative responses have been documented in the HPI. ROS Other: All systems not noted in ROS Statement are negative. Past Medical History Past Medical History: No Reported History Additional Past Medical History / Comment(s): anxiety History of Any Multi-Drug Resistant Organisms: None Reported Past Surgical History: Orthopedic Surgery Additional Past Surgical History / Comment(s): teresa carpal tunnel Past Psychological History: Anxiety, Depression Smoking Status: Never smoker Past Alcohol Use History: None Reported Past Drug Use History: None Reported General Exam Limitations: no limitations General appearance: alert, in no apparent distress Head exam: Present: atraumatic, normocephalic, normal inspection Eye exam: Present: normal appearance, EOMI. Absent: scleral icterus, periorbital swelling Expanded Teeth exam: Present: normal inspection Throat exam: normal inspection Neck exam: Present: normal inspection, full ROM Neurological exam: Present: alert, oriented X3, CN II-XII intact Psychiatric exam: Present: normal affect, normal mood Skin exam: Present: warm, dry, intact, normal color. Absent: rash Course Vital Signs 04/06/23 04/06/23 22:08 22:45 Temperature 97.8 F Pulse Rate 97 86 Respiratory 20 18 Rate Blood Pressure 120/79 137/86 O2 Sat by Pulse 99 98 Oximetry Medical Decision Making - Medical Decision Making Was pt. sent in by a medical professional or institution (, [place], [facility], urgent care, hospital, or detention...) When possible be specific @ -No Did you speak to anyone other than the patient for history (EMS, parent, family, police, friend...)? What history was obtained from this source @ -No Did you review nursing and triage notes (agree or disagree)? Why? @ -I reviewed and agree with nursing and triage notes Were old charts reviewed (outside hosp., previous admission, EMS record, old EKG, old radiological studies, urgent care reports/EKG's, detention records)? Report findings @ -No old charts were reviewed Differential Diagnosis (chest pain, altered mental status, abdominal pain women, abdominal pain men, vaginal bleeding, weakness, fever, dyspnea, syncope, headache, dizziness, GI bleed, back pain, seizure, CVA, palpatations, mental health, musculoskeletal)? @ -Differential includes toothache, dental abscess, Enrike's angina, this is not an all inclusive list EKG interpreted by me (3pts min.). @ -As above X-rays interpreted by me (1pt min.). @ -None done CT interpreted by me (1pt min.). @ -None done U/S interpreted by me (1pt. min.). @ -None done What testing was considered but not performed or refused? (CT, X-rays, U/S, labs)? Why? @ -None What meds were considered but not given or refused? Why? @ -None Did you discuss the management of the patient with other professionals (professionals i.e. , ISREAL, [facility], lab, RT, psych nurse, director social, escrow secretary, teacher, fisheries technical officer, comp field case manager)? Give summary @ -No Was smoking cessation discussed for >3mins.? @ -No Was critical care preformed (if so, how long)? @ -No Were there social determinants of health that impacted care today? How? (Homelessness, low income, unemployed, alcoholism, drug addiction, transportation, low edu. Level, literacy, decrease access to med. care, halfway, rehab)? @ -No Was there de-escalation of care discussed even if they declined (Discuss DNR or withdrawal of care, Hospice)? DNR status @ -No What co-morbidities impacted this encounter? (DM, HTN, Smoking, COPD, CAD, Cancer, CVA, ARF, Chemo, Hep., AIDS, mental health diagnosis, sleep apnea, morbid obesity)? @ -None Was patient admitted / discharged? Hospital course, mention meds given and route, prescriptions, significant lab abnormalities, going to OR and other pertinent info. @ -42-year-old female presenting with chief complaint of dental pain. She was seen by her oral surgeon today and diagnosed with an abscess, antibiotics percent her pharmacy but she has not yet picked him up. Physical examination is unremarkable. She is having no difficulty breathing or swallowing. No brawny induration or trismus. Patient is given Tylenol 3 and Zofran. She is instructed to take her antibiotic as prescribed by her surgeon. Follow up with oral surgeon. Follow-up with PCP. Report back to ER with any new or worsening symptoms. Discussed return parameters and answered all questions. Patient conveyed verbal understanding and agreed to the plan. I discussed this case in detail with my attending Dr. Burns Undiagnosed new problem with uncertain prognosis? @ -No Drug Therapy requiring intensive monitoring for toxicity (Heparin, Nitro, Insulin, Cardizem)? @ -No Were any procedures done? @ -No Diagnosis/symptom? @ -dental abscess Acute, or Chronic, or Acute on Chronic? @ -Acute Uncomplicated (without systemic symptoms) or Complicated (systemic symptoms)? @ -Uncomplicated Side effects of treatment? @ -No Exacerbation, Progression, or Severe Exacerbation? @ -No Poses a threat to life or bodily function? How? (Chest pain, USA, MS, pneumonia, PE, COPD, DKA, ARF, appy, cholecystitis, CVA, Diverticulitis, Homicidal, Suicidal, threat to staff... and all critical care pts) @ -No Disposition Clinical Impression: Dental abscess Disposition: HOME SELF-CARE Condition: Good Instructions (If sedation given, give patient instructions): Dental Abscess (ED) Additional Instructions: Follow up with your oral surgeon. Report back to ER with any new or worsening symptoms. Take medications as prescribed. Take antibiotic as prescribed you by your oral surgeon. Is patient prescribed a controlled substance at d/c from ED?: No Referrals: Meir Aviles MD [Primary Care Provider] - 1-2 days Time of Disposition: 22:39
[2023-04-06 22:50] VITALS: BP 137/86; PULSE 86; RESP 18
== END 2023-04-06 22:52 | disposition home or self-care (01) ==
LOC: EC 21:53
DX: K04.7 Periapical abscess without sinus (principal); F41.9 Anxiety disorder, unspecified; F32.A Depression, unspecified; Z79.899 Other long term (current) drug therapy; Z88.0 Allergy status to penicillin; Z88.1 Allergy status to other antibiotic agents
CPT/HCPCS: 99283; S0119

== ENCOUNTER → 2023-04-26 | Outpatient (CLI) | payer MEDICAID ==
[2023-04-26 10:53] VITALS: BP 110/73; PULSE 82; RESP 18
--- NOTE | 2023-04-26 14:18 | P.PAINPG ---
PQRS Measure Charge Sheet Comment: HISTORY OF PRESENT ILLNESS: 42 yr old female as a referral from [facility] presents today w severe and chronic LBP x 6 yrs secondary to DDD, spondylosis and facet arthropathy without myelopathy for evaluation. Pt states pain level is provoked at 9/10 in intensity, constant, localized in the lower lumbar spine, sharp in character w shooting pain towards the buttocks and BLEs. Pain is provoked by standing from a sitting position. Pain is alleviated by chiropractic treatments years ago, PT x 6 -8 wks in 2020, physician guided home exercises & stretches every other day x 5 wks, medications (Tramadol, Ibu), heat, ice, repositioning and rest. Oswetry Scale of 19. PMH: OA, Anxiety PSH: BL Carpal Tunnel Release SH: Negative x3 FH: Non contributory All: See list Meds: See list REVIEW OF ORGAN SYSTEMS: CONSTITUTIONAL: No fevers or chills. No recent weight loss. NEUROLOGICAL: + numbness and tingling along the distal extremities. No seizure disorders or headaches. MUSCULOSKELETAL: + pain PSYCHIATRIC: Denies current depression or suicidal thoughts. Physical Examinations : Constitutional : Cooperative , not in acute distress . Neurologic : Cranial nerve II to XII intact. No focal neurological deficits. Psychiatric : alert & oriented x 3. Matching mood & appropriate affect. Judgment & insight intact. Musculoskeletal : Cervical Spine Motor strength in the deltoid and biceps: Normal right side. Normal Left side Motor strength biceps and the wrist extensors: Normal right side . Normal left side Motor strength in the triceps muscle: Normal right side. Normal left side Deep tendon reflexes: Normal at the biceps. Normal at Brachioradialis. Normal at triceps Vertebral body tenderness to deep palpation over Cervical facet loading test: positive bilaterally Spurling test: positive bilaterally Neck distraction test: positive bilaterally Samantha sign: positive bilaterally Lumbar spine Motor strength lower extremities ,thigh and legs 5/5 Right side , 5/5 Left side Deep tendon reflexes : Normal Knee Jerk. Normal Ankle Jerk Vertebral body tenderness over L5 Cespedes Test positive Lumbar facet Loading Test: positive Right / positive Left Range of motion of the lumbar spine Flexion 30 degrees, extension 10 degrees Straight Leg Raise test: Left/ Right positive at <35 degrees Olga test: positive right / positive left. Severe tenderness over the Sacroiliac joint on the Right / Left sides Gaenslen test: positive bilaterally Seated flexion test: positive bilaterally. Sacral spine : Severe tenderness over the Sacroiliac joint: right side / left side Range of motion: Flexion of the lumbar spine <60 degrees Range of motion: Extension of the lumb ar spine <20 degrees Gaenslen's Test positive Rico's Test positive Olga test: positive right side / left side Thigh Thrust Test Sacral Thrust Test Imaging: MRI non contrast of the lumbar spine from 03/11/23 reviewed Assessment/ Plan : Lumbar spondylosis Recommendation of COLTEN L5-S1. May need a series of injections for optimal pain relief. Risks, benefits of procedure discussed and patient verbalized understanding. Admits to aspirin or anti- coagulant use or medical history of diabetes. Protocol for discontinuation/ continuation of medications андрей procedure discussed. Minimal anesthesia provided, if clinically indicated, consisting of Versed and Fentanyl. All questions answered. I have spent greater than 30 minutes on patient care today. Dr Logan was available by phone for the evaluation of this patient. The time was used to review the medical records including relevant urine studies and Prescription history (MAPs), review of the available imaging, evaluation and examination of the patient, coordination of care with the medical staff and if applicable referring physicians, as well as creation of the medical record PQRS Narrative: Smoking Status Never smoker Home Medications: Ambulatory Orders DULoxetine HCL [Cymbalta] 60 mg PO BID 30 Days capsule 08/27/21 Montelukast Sodium [Singulair] 10 mg PO HS 30 Days tab 08/27/21 Dextroamphetamine/Amphetamine [Adderall] 20 mg PO BID@0700,1300 10/03/22 LORazepam [Ativan] 0.5 mg PO BID PRN 10/03/22 lamoTRIgine [LaMICtal] 25 mg PO BID 10/03/22 modafiniL [Provigil] 200 mg PO DAILY 10/03/22 Controlled Substance Measures - Controlled Substance Measures Is patient prescribed a controlled substance at discharge?: No
== END ==
LOC: PNWHC3 09:05
PROVIDERS: ATTEND Specialist
DX: M47.816 Spondylosis without myelopathy or radiculopathy, lumbar region (principal); G89.29 Other chronic pain; M19.90 Unspecified osteoarthritis, unspecified site; F41.9 Anxiety disorder, unspecified; Z88.0 Allergy status to penicillin; Z88.1 Allergy status to other antibiotic agents
CPT/HCPCS: 99211

== ENCOUNTER 2023-05-16 11:30 | Day surgery (SDC) | payer MEDICAID ==
[~2023-05-16 11:30] MED LIST: LACTATED RINGERS 1,000 ML IV SCH
[2023-05-16 11:51] VITALS: RESP 16; TEMP 97.1
[2023-05-16] MEDS ORDERED: IOPAMIDOL M200 10 ML VIAL ONE (12:32)
[2023-05-16] MEDS ORDERED: methylPREDNISolone ACETATE 80 MG/ML 1 ML VIAL ONE (12:32)
--- NOTE | 2023-05-16 12:37 | P.PCN ---
Date of Procedure: 05/16/23 Procedure(s) Performed: PREOPERATIVE DIAGNOSIS: 1- Lumbar Degenerative Disc Diseases 2-Lumbar spondylosis with Facet arthropathy without myelopathy. POSTOPERATIVE DIAGNOSIS: 1-lumbar degenerative disc disease. 2-lumbar spondylosis with facet arthropathy without myelopathy. PROCEDURE 1. Lumbar epidural steroid injection under fluoroscopic guidance at the L5-S1 level. (Fluoroscopy imaging was available in radiology department) 2. Lumbar epidurogram. ANESTHESIA: Lidocaine 1% 3 and then only. EBL: Minimal PROCEDURE INDICATION: The patient with low back pain and radiculitis symptoms unresponsive to conservative treatment. Fluoroscopy was used to optimize visualization of the needle placement and to maximize safety. PROCEDURE DESCRIPTION / TECHNIQUE: The patient was seen and identified in the preoperative area. Risks, benefits, complications including but not limited to infections ,bleeding ,allergic reaction to the medications ,nerve damage and not complete pain releife , and alternatives were discussed with the patient. The patient agreed to proceed with the procedure and signed the consent. IV was started, and vital signs were stable. Patient was taken to the OR and time out was completed. The patient was placed in the prone position on procedure table and a pillow was placed under the abdomen to reduce lumbar lordosis. The lumbosacral area was prepped and draped in the usual sterile fashion.ere closely monitored during the procedure. Vital signs was monitered during the entire procedure. Using anterior-posterior fluoroscopy, the L5-S1 interlaminar space was identified and the skin over this site was marked and then infiltrated with 1% lidocaine subcutaneously. Subsequently, a 20-gauge Tuohy epidural needle was inserted and advanced toward the epidural space using the ``Loss of resistance technique and guided by AP and lateral fluoroscopy. The correct needle position in the epidural space was verified with the injection of 2 mL of the water soluble contrast dye Isovue 200 contrast and observing an excellent epidurogram with the epidural spread of the dye, after negative aspiration for blood and CSF and in the absence of paresthesias. Again after negative aspiration, a 6 ml mixture containing 80 mg of Depo-medrol ( Preservetive Free ), and 2 ml of preservative free Normal Saline, and 2 ml of preservative free lidocaine 1% solution was injected and a washout of epidurogram was seen. Needle was withdrawn intact, skin was cleansed, and bandages were applied. COMPLICATIONS: None DISPOSITION / PLANS: The patient was placed in a supine position and transferred to the recovery area in a stable condition for observation. There was no evidence of lower extremity motor or sensory deficit after the procedure. Patient was discharged from the recovery room after meeting discharge criteria. Home discharge instructions were given to the patient by the staff. The patient was reexamined prior to discharge. The patient will schedule a follow up in the clinic in 2-4 weeks.
[2023-05-16 12:54] VITALS: BP 110/76; PULSE 67
--- NOTE | 2023-05-16 17:24 | FL ---
EXAMINATION TYPE: FL guided pain mgmt statistic DATE OF EXAM: 05/16/2023 FLUOROSCOPY Fluoroscopy time of 1 seconds was used during lumbar epidural injection. 1 image/s document/s the oswald menon. DOSE AREA PRODUCT (DAP) UGY*M,MGY*CM: [id number]
== END 2023-05-16 13:02 | disposition home or self-care (01) ==
LOC: ORPAIN 11:30
PROVIDERS: ATTEND Specialist
DX: M51.16 Intervertebral disc disorders with radiculopathy, lumbar region (principal); M47.26 Other spondylosis with radiculopathy, lumbar region; Z88.0 Allergy status to penicillin
CPT/HCPCS: 81025; 62323; J1040; Q9966

== ENCOUNTER → 2023-06-08 | Outpatient (CLI) | payer MEDICAID ==
[2023-06-08 10:33] VITALS: BP 117/74; PULSE 95; RESP 16; TEMP 98.2
--- NOTE | 2023-06-08 14:32 | P.PAINPG ---
PQRS Measure Charge Sheet Comment: HISTORY OF PRESENT ILLNESS: 42 yr old female presents today w severe and chronic LBP x 6 yrs secondary to DDD, spondylosis and facet arthropathy without myelopathy for evaluation s/p COLTEN L5-S1. Pt states she experienced 95% x 3 wks s/p procedure. Pt states pain level is provoked at 9/10 in intensity, constant, localized in the lower lumbar spine, sharp in character w shooting pain towards the buttocks and RLE. Pain is provoked by standing from a sitting position. Pain is alleviated by chiropractic treatments years ago, PT x 6 -8 wks in 2020, physician guided home exercises & stretches every other day x 8 wks, medications (Tramadol, Ibu), heat, ice, repositioning and rest. Oswestry Scale of 13. Interventional procedures include COLTEN L5-S1 x1 Medications include Tramadol, Ibu REVIEW OF ORGAN SYSTEMS: CONSTITUTIONAL: No fevers or chills. No recent weight loss. NEUROLOGICAL: + numbness and tingling along the distal extremities. No seizure disorders or headaches. MUSCULOSKELETAL: + pain PSYCHIATRIC: Denies current depression or suicidal thoughts. Physical Examinations : Constitutional : Cooperative , not in acute distress . Neurologic : Cranial nerve II to XII intact. No focal neurological deficits. Psychiatric : alert & oriented x 3. Matching mood & appropriate affect. Judgment & insight intact. Musculoskeletal : Cervical Spine Motor strength in the deltoid and biceps: Normal right side. Normal Left side Motor strength biceps and the wrist extensors: Normal right side . Normal left side Motor strength in the triceps muscle: Normal right side. Normal left side Deep tendon reflexes: Normal at the biceps. Normal at Brachioradialis. Normal at triceps Vertebral body tenderness to deep palpation over Cervical facet loading test: positive bilaterally Spurling test: positive bilaterally Neck distraction test: positive bilaterally Samantha sign: positive bilaterally Lumbar spine Motor strength lower extremities ,thigh and legs 5/5 Right side , 5/5 Left side Deep tendon reflexes : Normal Knee Jerk. Normal Ankle Jerk Vertebral body tenderness over L5 Cespedes Test positive Lumbar facet Loading Test: positive Right / positive Left Range of motion of the lumbar spine Flexion 30 degrees, extension 10 degrees Straight Leg Raise test: Left/ Right positive at <35 degrees Olga test: positive right / positive left. Severe tenderness over the Sacroiliac joint on the Right / Left sides Gaenslen test: positive bilaterally Seated flexion test: positive bilaterally. Sacral spine : Severe tenderness over the Sacroiliac joint: right side / left side Range of motion: Flexion of the lumbar spine <60 degrees Range of motion: Extension of the lumb ar spine <20 degrees Gaenslen's Test positive Rico's Test positive Olga test: positive right side / left side Thigh Thrust Test Sacral Thrust Test Imaging: MRI non contrast of the lumbar spine from 03/11/23 reviewed Assessment/ Plan : Lumbar spondylosis Recommendation of COLTEN L5-S1 #2. May need a series of injections for optimal pain relief. Risks, benefits of procedure discussed and patient verbalized understanding. Admits to aspirin or anti- coagulant use or medical history of diabetes. Protocol for discontinuation/ continuation of medications андрей procedure discussed. Minimal anesthesia provided, if clinically indicated, consisting of Versed and Fentanyl. All questions answered. I have spent greater than 30 minutes on patient care today. Dr Logan was available by phone for the evaluation of this patient. The time was used to review the medical records including relevant urine studies and Prescription history (MAPs), review of the available imaging, evaluation and examination of the patient, coordination of care with the medical staff and if applicable referring physicians, as well as creation of the medical record PQRS Narrative: Smoking Status Never smoker Hx Alcohol Use (MH) Yes Home Medications: Ambulatory Orders DULoxetine HCL [Cymbalta] 60 mg PO BID 30 Days capsule 08/27/21 Montelukast Sodium [Singulair] 10 mg PO HS 30 Days tab 08/27/21 Dextroamphetamine/Amphetamine [Adderall] 20 mg PO BID@0700,1300 10/03/22 LORazepam [Ativan] 0.5 mg PO TID PRN 10/03/22 lamoTRIgine [LaMICtal] 25 mg PO BID 10/03/22 modafiniL [Provigil] 200 mg PO DAILY 10/03/22 5Hydroxytryptophan(Oxitriptan) [5-Htp] 200 mg PO DAILY 05/12/23 Alpha Lipoic Acid 600 mg PO DAILY 05/12/23 Ascorbic Acid [Vitamin C] 2,000 mg PO DAILY 05/12/23 Calcium Carbonate [Calcium] 1,200 mg PO DAILY 05/12/23 Cholecalciferol [Vitamin D3 (25 Mcg = 1000 Iu)] 50 mcg PO DAILY 05/12/23 Ferrous Sulfate [Feosol] 325 mg PO DAILY 05/12/23 S-Adenosylmethionine Sul Tosyl [Yuri-E] 400 mg PO DAILY 05/12/23 Turmeric Root Extract [Turmeric] 500 mg PO DAILY 05/12/23 lisinopriL [Prinivil] 10 mg PO DAILY 05/12/23 Controlled Substance Measures - Controlled Substance Measures Is patient prescribed a controlled substance at discharge?: No
== END ==
LOC: PNWHC3 10:05
PROVIDERS: ATTEND Specialist
DX: M47.816 Spondylosis without myelopathy or radiculopathy, lumbar region (principal); Z88.0 Allergy status to penicillin; Z88.8 Allergy status to other drugs, medicaments and biological substances
CPT/HCPCS: 99211

== ENCOUNTER 2023-06-29 09:36 | Day surgery (SDC) | payer MEDICAID ==
[2023-06-23 14:04] VITALS: BMI 36.6
[2023-06-29 10:03] VITALS: TEMP 98.3
[2023-06-29] MEDS ORDERED: methylPREDNISolone ACETATE 80 MG/ML 1 ML VIAL ONE (10:23)
[2023-06-29] MEDS ORDERED: IOPAMIDOL M200 10 ML VIAL ONE (10:23)
--- NOTE | 2023-06-29 10:27 | P.PCN ---
Date of Procedure: 06/29/23 Procedure(s) Performed: PREOPERATIVE DIAGNOSIS: 1- Lumbar Degenerative Disc Diseases 2-Lumbar spondylosis with Facet arthropathy without myelopathy. POSTOPERATIVE DIAGNOSIS: 1-lumbar degenerative disc disease. 2-lumbar spondylosis with facet arthropathy without myelopathy. PROCEDURE 1. Lumbar epidural steroid injection under fluoroscopic guidance at the L5-S1 level. (Fluoroscopy imaging was available in radiology department) 2. Lumbar epidurogram. ANESTHESIA: Lidocaine 1% 3 and then only. EBL: Minimal PROCEDURE INDICATION: The patient with low back pain and radiculitis symptoms unresponsive to conservative treatment. Fluoroscopy was used to optimize visualization of the needle placement and to maximize safety. PROCEDURE DESCRIPTION / TECHNIQUE: The patient was seen and identified in the preoperative area. Risks, benefits, complications including but not limited to infections ,bleeding ,allergic reaction to the medications ,nerve damage and not complete pain releife , and alternatives were discussed with the patient. The patient agreed to proceed with the procedure and signed the consent. IV was started, and vital signs were stable. Patient was taken to the OR and time out was completed. The patient was placed in the prone position on procedure table and a pillow was placed under the abdomen to reduce lumbar lordosis. The lumbosacral area was prepped and draped in the usual sterile fashion.ere closely monitored during the procedure. Vital signs was monitered during the entire procedure. Using anterior-posterior fluoroscopy, the L5-S1 interlaminar space was identified and the skin over this site was marked and then infiltrated with 1% lidocaine subcutaneously. Subsequently, a 20-gauge Tuohy epidural needle was inserted and advanced toward the epidural space using the ``Loss of resistance technique and guided by AP and lateral fluoroscopy. The correct needle position in the epidural space was verified with the injection of 2 mL of the water soluble contrast dye Isovue 200 contrast and observing an excellent epidurogram with the epidural spread of the dye, after negative aspiration for blood and CSF and in the absence of paresthesias. Again after negative aspiration, a 6 ml mixture containing 80 mg of Depo-medrol ( Preservetive Free ), and 2 ml of preservative free Normal Saline, and 2 ml of preservative free lidocaine 1% solution was injected and a washout of epidurogram was seen. Needle was withdrawn intact, skin was cleansed, and bandages were applied. COMPLICATIONS: None DISPOSITION / PLANS: The patient was placed in a supine position and transferred to the recovery area in a stable condition for observation. There was no evidence of lower extremity motor or sensory deficit after the procedure. Patient was discharged from the recovery room after meeting discharge criteria. Home discharge instructions were given to the patient by the staff. The patient was reexamined prior to discharge. The patient will schedule a follow up in the clinic in 2-4 weeks.
[2023-06-29 10:34] VITALS: RESP 20
[2023-06-29 10:49] VITALS: BP 123/72; PULSE 105
--- NOTE | 2023-06-29 11:25 | FL ---
Intraoperative/procedural fluoroscopic services were provided for pain management. Total fluoroscopy time is 1.5 seconds with a total of 1 submitted image to PACS. Total DAP [id number] mGym2. Please see t he operative note for further details.
== END 2023-06-29 10:55 ==
LOC: ORPAIN 09:36
PROVIDERS: ATTEND Specialist
DX: M51.16 Intervertebral disc disorders with radiculopathy, lumbar region (principal); M47.26 Other spondylosis with radiculopathy, lumbar region; Z88.0 Allergy status to penicillin; Z79.899 Other long term (current) drug therapy
CPT/HCPCS: 81025; 62323; J1040; Q9966

== ENCOUNTER → 2023-08-09 | Outpatient (CLI) | payer MEDICAID ==
[2023-08-09 09:50] VITALS: BP 119/84; PULSE 79; RESP 15; TEMP 98.2
--- NOTE | 2023-08-09 14:42 | P.PAINPG ---
PQRS Measure Charge Sheet Comment: HISTORY OF PRESENT ILLNESS: A 42 yr old female presents today w severe and chronic LBP x 6 yrs secondary to DDD, spondylosis and facet arthropathy without myelopathy for evaluation s/p COLTEN L5-S1 #2. Pt states she experienced 80% x 6 wks s/p procedure. Pt states pain level is provoked at 2/10 in intensity, constant, localized in the lower lumbar spine, sharp in character w shooting pain towards the buttocks and RLE. Pain is provoked by standing from a sitting position. Pain is alleviated by chiropractic treatments years ago, PT x 6 -8 wks in 2020, physician guided home exercises & stretches every other day x 8 wks, medications, heat, ice, repositioning and rest. Interventional procedures include COLTEN L5-S1 x2 Medications include Tramadol, Ibu REVIEW OF ORGAN SYSTEMS: CONSTITUTIONAL: No fevers or chills. No recent weight loss. NEUROLOGICAL: + numbness and tingling along the distal extremities. No seizure disorders or headaches. MUSCULOSKELETAL: + pain PSYCHIATRIC: Denies current depression or suicidal th oughts. Physical Examinations : Constitutional : Cooperative , not in acute distress . Neurologic : Cranial nerve II to XII intact. No focal neurological deficits. Psychiatric : alert & oriented x 3. Matching mood & appropriate affect. Judgment & insight intact. Musculoskeletal : Cervical Spine Motor strength in the deltoid and biceps: Normal right side. Normal Left side Motor strength biceps and the wrist extensors: Normal right side . Normal left side Motor strength in the triceps muscle: Normal right side. Normal left side Deep tendon reflexes: Normal at the biceps. Normal at Brachioradialis. Normal at triceps Vertebral body tenderness to deep palpation over Cervical facet loading test: positive bilaterally Spurling test: positive bilaterally Neck distraction test: positive bilaterally Samantha sign: positive bilaterally Lumbar spine Motor strength lower extremities ,thigh and legs 5/5 Right side , 5/5 Left side Deep tendon reflexes : Normal Knee Jerk. Normal Ankle Jerk Vertebral body tenderness over L5 Cespedes Test positive Lumbar facet Loading Test: positive Right / positive Left Range of motion of the lumbar spine Flexion 30 degrees, extension 10 degrees Straight Leg Raise test: Left/ Right positive at <35 degrees Olga test: positive right / positive left. Severe tenderness over the Sacroiliac joint on the Right / Left sides Gaenslen test: positive bilaterally Seated flexion test: positive bilate rally. Sacral spine : Severe tenderness over the Sacroiliac joint: right side / left side Range of motion: Flexion of the lumbar spine <60 degrees Range of motion: Extension of the lumbar spine <20 degrees Gaenslen's Test positive Rico's Test positive Olga test: positive right side / left side Thigh Thrust Test Sacral Thrust Test Imaging: MRI non contrast of the lumbar spine from 03/11/23 reviewed Assessment/ Plan : Lumbar spondylosis Will manage residual pain on her own and may RTC on an as needed basis. All questions answered. I have spent greater than 30 minutes on patient care today. Dr Logan was available by phone for the evaluation of this patient. The time was used to review the medical records including relevant urine studies and Prescription history (MAPs), review of the available imaging, evaluation and examination of the patient, coordination of care with the medical staff and if applicable referring physicians, as well as creation of the medical record PQRS Narrative: Smoking Status Never smoker Hx Alcohol Use (MH) Yes Home Medications: Ambulatory Orders DULoxetine HCL [Cymbalta] 60 mg PO BID 30 Days capsule 08/27/21 Montelukast Sodium [Singulair] 10 mg PO HS 30 Days tab 08/27/21 Dextroamphetamine/Amphetamine [Adderall] 20 mg PO BID@0700,1300 10/03/22 LORazepam [Ativan] 0.5 mg PO TID PRN 10/03/22 lamoTRIgine [LaMICtal] 25 mg PO BID 10/03/22 modafiniL [Provigil] 200 mg PO DAILY 10/03/22 5Hydroxytryptophan(Oxitriptan) [5-Htp] 200 mg PO DAILY 05/12/23 Alpha Lipoic Acid 600 mg PO DAILY 05/12/23 Ascorbic Acid [Vitamin C] 2,000 mg PO DAILY 05/12/23 Calcium Carbonate [Calcium] 1,200 mg PO DAILY 05/12/23 Cholecalciferol [Vitamin D3 (25 Mcg = 1000 Iu)] 50 mcg PO DAILY 05/12/23 Ferrous Sulfate [Feosol] 325 mg PO DAILY 05/12/23 S-Adenosylmethionine Sul Tosyl [Yuri-E] 400 mg PO DAILY 05/12/23 Turmeric Root Extract [Turmeric] 500 mg PO DAILY 05/12/23 lisinopriL [Prinivil] 10 mg PO DAILY 05/12/23 Controlled Substance Measures - Controlled Substance Measures Is patient prescribed a controlled substance at discharge?: No
== END ==
LOC: PNWHC3 07:53
PROVIDERS: ATTEND Specialist
DX: M47.816 Spondylosis without myelopathy or radiculopathy, lumbar region (principal); Z88.0 Allergy status to penicillin; Z88.1 Allergy status to other antibiotic agents
CPT/HCPCS: 99211

== ENCOUNTER 2023-09-26 13:46 | Inpatient (IN) | payer MEDICAID ==
--- NOTE | 2023-09-26 14:14 | ED ---
Psych HPI - General Source: patient, RN notes reviewed Mode of arrival: ambulatory <Gio Stearns - Last Filed: 09/26/23 14:13> <Sergei Burns - Last Filed: 09/27/23 00:43> - General Chief Complaint: Psychiatric Symptoms Stated Complaint: alter mental state Time Seen by Provider: 09/26/23 14:13 - History of Present Illness Initial Comments: 42-year-old female transferred from chief complaint depression. Patient states never worsened depression thoughts of harming herself. She states that her son felt no contact order against her in which she is trying to get him help. She states made her depression worse. (Gio Stearns) Patient is a 42-year-old female who presents from his apartment for psychiatric evaluation. Has a history of depression. Her therapist instructed her to come here for possible admission. She states her depression seems to be at peak, worsening over the last month. Is having some nonspecific suicidal thoughts. Denies any plans or attempts. Denies any homicidal ideations, tends complaints. Denies any hallucinations. States symptoms started back when there was an incident with her son approximate one month ago and was continued to get worse. Initially presented and evaluated as a quick note. I evaluated the patient when she was placed in room. (Sergei Burns) - Related Data Home Medications Medication Instructions Recorded Confirmed Dextroamphetamine/Amphetamine 20 mg PO BID@0700,1300 10/03/22 06/29/23 [Adderall] LORazepam [Ativan] 0.5 mg PO TID PRN 10/03/22 06/29/23 lamoTRIgine [LaMICtal] 25 mg PO BID 10/03/22 06/29/23 modafiniL [Provigil] 200 mg PO DAILY 10/03/22 06/29/23 5Hydroxytryptophan(Oxitriptan) 200 mg PO DAILY 05/12/23 06/29/23 [5-Htp] Alpha Lipoic Acid 600 mg PO DAILY 05/12/23 06/29/23 Ascorbic Acid [Vitamin C] 2,000 mg PO DAILY 05/12/23 06/29/23 Calcium Carbonate [Calcium] 1,200 mg PO DAILY 05/12/23 06/29/23 Cholecalciferol [Vitamin D3 (25 50 mcg PO DAILY 05/12/23 06/29/23 Mcg = 1000 Iu)] Ferrous Sulfate [Feosol] 325 mg PO DAILY 05/12/23 06/29/23 S-Adenosylmethionine Sul Tosyl 400 mg PO DAILY 05/12/23 06/29/23 [Yuri-E] Turmeric Root Extract [Turmeric] 500 mg PO DAILY 05/12/23 06/29/23 lisinopriL [Prinivil] 10 mg PO DAILY 05/12/23 06/29/23 Previous Rx's Medication Instructions Recorded DULoxetine HCL [Cymbalta] 60 mg PO BID 30 Days capsule 08/27/21 Montelukast Sodium [Singulair] 10 mg PO HS 30 Days tab 08/27/21 Allergies Allergy/AdvReac Type Severity Reaction Status Date / Time Penicillins Allergy Rash/Hives Verified 09/26/23 14:09 clindamycin AdvReac Nausea & Verified 09/26/23 14:09 Vomiting Review of Systems ROS Other: All systems not noted in ROS Statement are negative. <Gio Stearns - Last Filed: 09/26/23 14:13> ROS Other: All systems not noted in ROS Statement are negative. <Sergei Burns - Last Filed: 09/27/23 00:43> ROS Statement: Those systems with pertinent positive or pertinent negative responses have been documented in the HPI. Review of Systems: CONST: Denies fever EYES: Denies blurry vision ENT: Denies nasal congestion C/V: Denies Chest pain RESP: Denies shortness of breath GI: Denies abdominal pain : Denies dysuria SKIN: Denies rash. MSK: Denies joint pain. NEURO: Denies headache PSYCH: Denies homicidal ideations/plans/attempts. Denies visual or auditory hallucinations. She endorses suicidal ideations. Denies plans or attempts. (Sergei Burns) Past Medical History Past Medical History: No Reported History Additional Past Medical History / Comment(s): anxiety History of Any Multi-Drug Resistant Organisms: None Reported Past Surgical History: No Surgical Hx Reported Additional Past Surgical History / Comment(s): carpal tunnel Past Anesthesia/Blood Transfusion Reactions: No Reported Reaction Additional Past Anesthesia/Blood Transfusion Reaction / Comment(s): wakes up slow from anesthesia Past Psychological History: Anxiety, Depression Smoking Status: Never smoker Past Alcohol Use History: None Reported Past Drug Use History: None Reported <Gio Stearns - Last Filed: 09/26/23 14:13> General Exam <iGo Stearns - Last Filed: 09/26/23 14:13> <Sergei Burns - Last Filed: 09/27/23 00:43> - General Exam Comments Initial Comments: Visual Physical Exam Vital signs reviewed General: Well-appearing, nontoxic, no acute distress. Head: Normocephalic, atraumatic Eyes: PERRLA, EOMI ENT: Airway patent Chest: Nonlabored breathing Skin: No visual rash, normal skin tone Neuro: Alert and oriented 3 Musculoskeletal: No gross abnormalities (Gio Stearns) General: Appears in no acute distress. Cooperative HEAD: Normal with no signs of head trauma. EYES: PERRLA, EOMI, conjunctiva normal, no discharge. ENT: Hearing grossly intact, normal oropharynx. RESPIRATORY: Clear breath sounds bilaterally. No wheezes, rales, or rhonchi. C/V: Regular rate and rhythm. S1 and S2 auscultated, no edema, peripheral pulses 2+ and intact throughout ABD: Abd is soft, nontender, nondistended EXT: Normal range of motion, no obvious deformity SKIN: No rashes or lesions observed on exposed skin. NEURO: Alert and oriented x 4. (Sergei Burns) Course Vital Signs 09/26/23 14:02 Temperature 97.6 F Pulse Rate 105 H Respiratory 18 Rate Blood Pressure 146/93 O2 Sat by Pulse 99 Oximetry Medical Decision Making <Gio Stearns - Last Filed: 09/26/23 14:13> <Sergei Burns - Last Filed: 09/27/23 00:43> - Medical Decision Making I completed the quick note portion of this chart signed Gio Stearns PA-C (Gio Stearns) Was pt. sent in by a medical professional or institution ([facility], [employer]IAN, urgent care, hospital, or longterm...) When possible be specific @ -No Did you speak to anyone other than the patient for history (EMS, parent, family, police, friend...)? What history was obtained from this source @ -No Did you review nursing and triage notes (agree or disagree)? Why? @ -I reviewed and agree with nursing and triage notes Were old charts reviewed (outside hosp., previous admission, EMS record, old EKG, old radiological studies, urgent care reports/EKG's, longterm records)? Report findings @ -Old charts reviewed Differential Diagnosis (chest pain, altered mental status, abdominal pain women, abdominal pain men, vaginal bleeding, weakness, fever, dyspnea, syncope, headache, dizziness, GI bleed, back pain, seizure, CVA, palpatations, mental health, musculoskeletal)? @ -Differential Mental Health Depression, anxiety, bipolar, psychosis, schizophrenia, borderline personality, situational depression, adjustment disorder, behavioral disorder, brain tumor, malingering, substance abuse, encephalopathy, medication reaction, dementia, hypothyroidism, degenerative neurologic disorder, lupus.... This is not meant to be all-inclusive list EKG interpreted by me (3pts min.). @ -None done X-rays interpreted by me (1pt min.). @ -None done CT interpreted by me (1pt min.). @ -None done U/S interpreted by me (1pt. min.). @ -None done What testing was considered but not performed or refused? (CT, X-rays, U/S, labs)? Why? @ -None What meds were considered but not given or refused? Why? @ -None Did you discuss the management of the patient with other professionals (professionals i.e. , PA, [employer]IC LIBRARIAN, lab, RT, psych nurse, high school social studies teacher, supervisor electronics processing, teacher, business services officer, home health care case manager)? Give summary @ -Discussed with EPS who evaluated the patient and determined that she does meet inpatient criteria. She'll be admitted to inpatient psychiatry. Was smoking cessation discussed for >3mins.? @ -No Was critical care preformed (if so, how long)? @ -No Were there social determinants of health that impacted care today? How? (Homelessness, low income, unemployed, alcoholism, drug addiction, transportation, low edu. Level, literacy, decrease access to med. care, halfway, rehab)? @ -No Was there de-escalation of care discussed even if they declined (Discuss DNR or withdrawal of care, Hospice)? DNR status @ -No What co-morbidities impacted this encounter? (DM, HTN, Smoking, COPD, CAD, Cancer, CVA, ARF, Chemo, Hep., AIDS, mental health diagnosis, sleep apnea, morbid obesity)? @ -None Was patient admitted / discharged? Hospital course, mention meds given and route, prescriptions, significant lab abnormalities, going to OR and other pertinent info. @ -Based the patient's presentation and physical exam, presents with depression and suicidal ideations. I evaluated the patient after a long wait in the waiting room due to increased ER volumes. She is placed in green scrubs. Sitter and suicide precautions ordered. Vital signs within except for limits. BAT is 0. UDS is pending. Patient is medically cleared for evaluation by psychiatry. Disposition is pending psychiatric evaluation. EPS evaluated the patient and determined that she does meet inpatient psychiatric criteria. She'll be admitted in stable condition. Undiagnosed new problem with uncertain prognosis? @ -No Drug Therapy requiring intensive monitoring for toxicity (Heparin, Nitro, Insulin, Cardizem)? @ -No Were any procedures done? @ -No Diagnosis/symptom? @ -Suicidal ideations, depression, encounter for psychiatric evaluation Acute, or Chronic, or Acute on Chronic? @ -Acute Uncomplicated (without systemic symptoms) or Complicated (systemic symptoms)? @ -Complicated Side effects of treatment? @ -No Exacerbation, Progression, or Severe Exacerbation? @ -No Poses a threat to life or bodily function? How? (Chest pain, USA, OR, pneumonia, PE, COPD, DKA, ARF, appy, cholecystitis, CVA, Diverticulitis, Homicidal, Suicidal, threat to staff... and all critical care pts) @ -Yes (Sergei Burns) Disposition <Gio Stearns - Last Filed: 09/26/23 14:13> Time of Disposition: 00:39 <Sergei Burns - Last Filed: 09/27/23 00:43> Clinical Impression: Encounter for psychiatric assessment, Depression, Suicidal ideation Disposition: TRANSFER TO PSYCH HOSP/UNIT Condition: Stable Referrals: Meir Aviles MD [Primary Care Provider] - 1-2 days
[2023-09-27 01:17] LABS: Amphetamine Screen,Urine Detected (NotDetected); Barbiturate Screen,Urine Not Detected (NotDetected); Benzodiazepines Screen,Urine Detected (NotDetected); Cocaine Screen,Urine Not Detected (NotDetected); Methadone Screen, Urine Not Detected (NotDetected); Opiate Screen,Urine Detected (NotDetected); Oxycodone Screen, Urine Not Detected (NotDetected); Phencyclidine Screen,Urine Not Detected (NotDetected); Tricyclic Antidepressant,Urine Not Detected (NotDetected); Urn Cannabinoid Scrn Not Detected (NotDetected)
[2023-09-27] MEDS ORDERED: MAG HYDROX/AL HYDROX/SIMETH 30 ML CUP PO PRN (03:09)
[2023-09-27] MEDS ORDERED: HALOPERIDOL LACTATE 5 MG/ML 1 ML VIAL IM PRN (03:09)
[2023-09-27] MEDS ORDERED: LORazepam 2 MG/ML INJ IM PRN (03:09)
[2023-09-27] MEDS ORDERED: haloperidoL 5 MG TAB PO PRN (03:09)
[2023-09-27] MEDS ORDERED: MAGNESIUM HYDROXIDE 2,400 MG/30 ML CUP PO PRN (03:09)
[2023-09-27] MEDS: LORazepam 1 MG TAB PO PRN ×3 (04:20→22:23)
[2023-09-27 06:18] LABS: Appearance,Urine Clear (Clear); Bilirubin,Urine Negative (Negative); Blood,Urine Negative (Negative); Color,Urine Light Yellow; Glucose,Urine (UA) Negative (Negative); Ketones,Urine Negative (Negative); Leukocyte Esterase,Urine Negative (Negative); Nitrite,Urine Negative (Negative); PH, Urine 6.5 (5.0-8.0); Protein,Urine Negative (Negative); Urobilinogen,Urine 0.2 mg/dL (<2.0)
[2023-09-27] MEDS ORDERED: NICOTINE 14MG/24HR PATCH TRANSDERM SCH (09:00)
--- NOTE | 2023-09-27 09:08 | P.HPIM ---
History of Present Illness H&P Date: 09/27/23 Chief Complaint: Overwhelmed The patient is a 42-year-old white female who is struggling with family issues related to her children. Her oldest recently left the house up returning 18 but has had a long history of bipolar disorder and noncompliance taking medications. There is currently restraining order that they don't have any contact and he has been living with a neighbor. She states due to her daughter having brought home to dogs he had significant liver and she has 7 dogs in the house at this time. This is causing significant stress. She feels as though her has been minimally supportive and because of her overwhelming family stress she is admitted. She has struggled with depression the past. Review of Systems Constitutional: Denies chills, Denies fever Eyes: denies blurred vision, denies pain Ears, nose, mouth and throat: Denies headache, Denies sore throat Cardiovascular: Denies chest pain, Denies shortness of breath Past Medical History Past Medical History: No Reported History Additional Past Medical History / Comment(s): anxiety History of Any Multi-Drug Resistant Organisms: None Reported Past Surgical History: No Surgical Hx Reported Additional Past Surgical History / Comment(s): carpal tunnel Past Anesthesia/Blood Transfusion Reactions: No Reported Reaction Additional Past Anesthesia/Blood Transfusion Reaction / Comment(s): wakes up slow from anesthesia Past Psychological History: Anxiety, Depression Smoking Status: Never smoker Past Alcohol Use History: None Reported Past Drug Use History: None Reported Medications and Allergies Home Medications Medication Instructions Recorded Confirmed Type DULoxetine HCL [Cymbalta] 60 mg PO BID 30 Days capsule 08/27/21 06/29/23 Rx Montelukast Sodium [Singulair] 10 mg PO HS 30 Days tab 08/27/21 06/29/23 Rx Dextroamphetamine/Amphetamine 20 mg PO BID@0700,1300 10/03/22 06/29/23 History [Adderall] LORazepam [Ativan] 0.5 mg PO TID PRN 10/03/22 06/29/23 History lamoTRIgine [LaMICtal] 25 mg PO BID 10/03/22 06/29/23 History modafiniL [Provigil] 200 mg PO DAILY 10/03/22 06/29/23 History 5Hydroxytryptophan(Oxitriptan) 200 mg PO DAILY 05/12/23 06/29/23 History [5-Htp] Alpha Lipoic Acid 600 mg PO DAILY 05/12/23 06/29/23 History Ascorbic Acid [Vitamin C] 2,000 mg PO DAILY 05/12/23 06/29/23 History Calcium Carbonate [Calcium] 1,200 mg PO DAILY 05/12/23 06/29/23 History Cholecalciferol [Vitamin D3 (25 50 mcg PO DAILY 05/12/23 06/29/23 History Mcg = 1000 Iu)] Ferrous Sulfate [Feosol] 325 mg PO DAILY 05/12/23 06/29/23 History S-Adenosylmethionine Sul Tosyl 400 mg PO DAILY 05/12/23 06/29/23 History [Yuri-E] Turmeric Root Extract [Turmeric] 500 mg PO DAILY 05/12/23 06/29/23 History lisinopriL [Prinivil] 10 mg PO DAILY 05/12/23 06/29/23 History Allergies Allergy/AdvReac Type Severity Reaction Status Date / Time Penicillins Allergy Rash/Hives Verified 09/26/23 14:09 clindamycin AdvReac Nausea & Verified 09/26/23 14:09 Vomiting Physical Exam Vitals: Vital Signs Temp Pulse Pulse Resp BP BP Pulse Ox 09/27/23 04:39 98.5 F 85 18 165/95 98 09/26/23 14:02 97.6 F 105 H 18 146/93 99 Intake and Output 09/26/23 09/27/23 09/27/23 22:59 06:59 14:59 Other: Weight 93.1 kg - Constitutional General appearance: cooperative, no acute distress - EENT Eyes: EOMI - Neck Neck: no lymphadenopathy - Respiratory Respiratory: bilateral: diminished - Cardiovascular Rhythm: regular Heart sounds: normal: S1, S2 Abnormal Heart Sounds: no S3 Gallop - Gastrointestinal General gastrointestinal: soft, no tenderness - Psychiatric Psychiatric: A&O x's 3, appropriate affect, intact judgment & insight Results Labs: Abnormal Lab Results - Last 24 Hours (Table) 09/27/23 Range/Units 00:09 Urine Opiates Screen Detected H (NotDetected) Ur Amphetamines Screen Detected H (NotDetected) U Benzodiazepines Scrn Detected H (NotDetected) Thrombosis Risk Factor Assmnt - Choose All That Apply Any of the Below Risk Factors Present?: No Other Risk Factors: No Other congenital or acquired thrombophilia - If yes, enter type in comment: No Thrombosis Risk Factor Assessment Level: Very Low Risk Assessment and Plan (1) Depression Current Visit: Yes Status: Acute Code(s): F32.A - DEPRESSION, UNSPECIFIED SNOMED Code(s): 82957743 (2) Encounter for psychiatric assessment Current Visit: Yes Status: Acute Code(s): Z76.89 - PERSONS ENCOUNTERING HEALTH SERVICES IN OTH CIRCUMSTANCES SNOMED Code(s): 581690175 (3) Suicidal ideation Current Visit: Yes Status: Acute Code(s): R45.851 - SUICIDAL IDEATIONS SNOMED Code(s): 9311872 (4) Allergic rhinitis Current Visit: No Status: Acute Code(s): J30.9 - ALLERGIC RHINITIS, UNSPECIFIED SNOMED Code(s): 18789048 (5) Anxiety disorder Current Visit: No Status: Acute Priority: High Code(s): F41.9 - ANXIETY DISORDER, UNSPECIFIED SNOMED Code(s): 711173585 (6) Major depressive disorder, recurrent severe without psychotic features Current Visit: No Status: Acute Priority: High Code(s): F33.2 - MAJOR DEPRESSV DISORDER, RECURRENT SEVERE W/O PSYCH FEATURES SNOMED Code(s): 96619423 Plan: Restart home medications. Lisinopril ordered, we will recheck to make sure that this is a home medication. We'll continue to follow from a medical perspective. Significant family stress. See orders otherwise.
[2023-09-27] MEDS: lisinopriL 10 MG TAB PO SCH (09:24)
[2023-09-27] MEDS ORDERED: LORazepam 0.5 MG TAB PO PRN (12:08)
--- NOTE | 2023-09-27 12:20 | P.HP ---
Psychiatric H&P - . H&P Date: 09/27/23 History & Physical: Allergies Allergy/AdvReac Type Severity Reaction Status Date / Time Penicillins Allergy Rash/Hives Verified 09/26/23 14:09 clindamycin AdvReac Nausea & Verified 09/26/23 14:09 Vomiting Vital Signs Temp 98.5 F 09/27/23 04:39 Pulse 85 09/27/23 04:39 Resp 18 09/27/23 04:39 BP 165/95 09/27/23 04:39 Pulse Ox 98 09/27/23 04:39 FiO2 Intake & Output 09/26/23 09/27/23 09/27/23 18:59 06:59 18:59 Weight 90.718 kg 93.1 kg Laboratory Last Values Urine Color Light Yellow 09/27/23 00:09 Urine Appearance Clear (Clear) 09/27/23 00:09 Urine pH 6.5 (5.0-8.0) 09/27/23 00:09 Ur Specific [place] 1.020 (1.001-1.035) 09/27/23 00:09 Urine Protein Negative (Negative) 09/27/23 00:09 Urine Glucose (UA) Negative (Negative) 09/27/23 00:09 Urine Ketones Negative (Negative) 09/27/23 00:09 Urine Blood Negative (Negative) 09/27/23 00:09 Urine Nitrite Negative (Negative) 09/27/23 00:09 Urine Bilirubin Negative (Negative) 09/27/23 00:09 Urine Urobilinogen 0.2 mg/dL (<2.0) 09/27/23 00:09 Ur Leukocyte Esterase Negative (Negative) 09/27/23 00:09 Urine HCG, Qual Not Detected (Not Detectd) 09/27/23 00:09 Urine Opiates Screen Detected (NotDetected) H 09/27/23 00:09 Ur Oxycodone Screen Not Detected (NotDetected) 09/27/23 00:09 Urine Methadone Screen Not Detected (NotDetected) 09/27/23 00:09 Ur Propoxyphene Screen Not Detected (NotDetected) 09/27/23 00:09 Ur Barbiturates Screen Not Detected (NotDetected) 09/27/23 00:09 U Tricyclic Antidepress Not Detected (NotDetected) 09/27/23 00:09 Ur Phencyclidine Scrn Not Detected (NotDetected) 09/27/23 00:09 Ur Amphetamines Screen Detected (NotDetected) H 09/27/23 00:09 U Methamphetamines Scrn Not Detected (NotDetected) 09/27/23 00:09 U Benzodiazepines Scrn Detected (NotDetected) H 09/27/23 00:09 Urine Cocaine Screen Not Detected (NotDetected) 09/27/23 00:09 U Marijuana (THC) Screen Not Detected (NotDetected) 09/27/23 00:09 SARS-CoV-2 (PCR) Not Detected (Not Detectd) 09/27/23 00:15 09/27/23 09:18 IDENTIFYING DATA: Patient is a 42-year-old female lives with in a house with her mother, 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 HPI: Patient presented to the hospital on 09/26 under recommendations of her therapist. States her depression is at a peak, and therapist suggested inpatient, because patient told her she "wanted to check out of her head" explaining that she would want to become a vegatable, and not have to make decisions. endorsing passive SI, nio plan. States stressors include a no contact order that her 18 year old son placed on her, loss of her pets, states her is useless, and don't help her with anything. [place] that all week, she didn't want to live. Claims to always have anxiety, and paranoia comes with her anxiety. Says her sleep goes in spurts, and she will sleep off and on. Claims she has racing thoughts at night. Isolates herself to her room at home. Says her appetite comes and goes. Patient is very monotone. Guarded. Patient admits to suicidal thoughts currently, denies homicidal ideations intent or plan. At this time patient denies any auditory or visual hallucinations. Patient denies any flight of ideas racing thoughts. Patient denies using drugs/nicotine. Drinks very rarely. PAST PSYCHIATRIC HISTORY:Patient previous psychiatric hospitalization 2 years ago. Patient is non compliant with psych medication however has been on several antidepressants in the past including wlelbutrin, lamictal and prozac. Patient denies any psychiatric outpatient follow-up currently, however has an appt at [facility] on the . Patient denies any history of suicide attempts in the past, but has had thoughts of suicide PMH: As per ED note ALLERGIES: as per EMR CHEMICAL DEPENDENCY HISTORY: as per HPI FAMILY PSYCHIATRIC/SUBSTANCE USE HISTORY: patient stated depression runs on both sides of the family. son is schizoeffective. SOCIAL HISTORY: Patient was born and raised in [place]. High School graduate, no legal tissues. 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 MENTAL STATUS EXAM: General Appearance: Patient appears to be overweight, glasses, dressed in hospital gown. Short hair. stated age is alert, directable, and attempts to be cooperative. Behavior: Patient is calmly seated without any agitated behavior. Constricted, Poor eye contact. Speech: Patient's speech is fluent and nonpressured. Monotone Mood/Affect: Mood is improving mildly, affect is congruent and constricted. Suicidality/Homicidality: Patient denies having any suicidal or homicidal ideation intent or plan. Perceptions: Patient denies any visual hallucinations and denies any auditory hallucinations Though content/process: There is no evidence of any delusional thought content. [place]. evasive/gaurded Memory and concentration: AOX3, grossly intact for the purposes of this session Judgment and insight: Improving mildly STRENGTHS/WEAKNESSES: strength is that patient is resilient. Weakness is that patient has poor judgment and is impulsive INTELLECT: average IMPRESSIONS: Major depressive disorder, recurrent, severe without psychotic features Anxiety disorder unspecified PLAN: -Patient is admitted under voluntary status to MHU for stabilization of psychiatric symptoms and safety. Patient has signed adult voluntary form and medication consent and is placed in patient's chart. -Medications : Will start patient on Wellbutrin XL 150mg qd for mood Zoloft 50mg qhs for mood/anxiety Lamictal 25mg bid for mood stabilization/depression -Patient was informed of the risks, benefits and side effects of the medication and patient verbally consented to taking the medications. Patient signed med consent form and was placed in chart. -Internal Medicine consult to perform medical evaluation and physical. -NRT -nonsmoker -SW on board for discharge planning. Encourage patient to participate in groups to work on coping skills. 09/27/23 12:18
[2023-09-27] MEDS: buPROPion XL 150 MG TAB.ER.24H PO SCH (13:01)
[2023-09-27] MEDS: FERROUS SULFATE 325 MG TAB PO SCH (13:01)
[2023-09-27] MEDS: CHOLECALCIFEROL 25 MCG (1000 IU) TABLET PO SCH (13:01)
[2023-09-27] MEDS: lamoTRIgine 25 MG TAB PO SCH ×2 (13:02→21:37)
[2023-09-27] MEDS: MONTELUKAST 10 MG TAB PO SCH (21:37)
[2023-09-27] MEDS: SERTRALINE 50 MG TAB PO SCH (21:38)
[2023-09-28 07:43] LABS: Basophils % (A) 0 %; Eosinophils # (A) 0.3 k/uL (0-0.7); Eosinophils % (A) 4 %; HCT 39.4 % (34.0-46.0); HGB 12.7 gm/dL (11.4-16.0); Lymphocytes # (A) 2.6 k/uL (1.0-4.8); Lymphocytes % (A) 29 %; MCH 27.4 pg (25.0-35.0); MCHC 32.3 g/dL (31.0-37.0); MCV 84.9 fL (80.0-100.0); Mean Platelet Volume 7.6; Monocytes # (A) 0.4 k/uL (0-1.0); Monocytes % (A) 5 %; Neutrophils # (A) 5.4 k/uL (1.3-7.7); Neutrophils % (A) 61 %; Platelet Count 299 k/uL (150-450); RBC 4.64 m/uL (3.80-5.40); RDW 14.3 % (11.5-15.5)
[2023-09-28 08:04] LABS: ALT 20 U/L (4-34); AST 22 U/L (14-36); African American GFR (CKD) >90 (>60 ml/min/1.73 sqM); Albumin 3.6 g/dL (3.5-5.0); Alkaline Phosphatase 46 U/L (38-126); Anion Gap 9 mmol/L; Blood Urea Nitrogen 15 mg/dL (7-17); Calcium 9.1 mg/dL (8.4-10.2); Carbon Dioxide 26 mmol/L (22-30); Chloride 105 mmol/L (98-107); Glucose 92 mg/dL (74-99); Non-African American GFR(CKD) >90 (>60 ml/min/1.73 sqM); Potassium 4.1 mmol/L (3.5-5.1); Sodium 140 mmol/L (137-145); Total Bilirubin 0.4 mg/dL (0.2-1.3); Total Protein 6.7 g/dL (6.3-8.2)
[2023-09-28] MEDS: buPROPion XL 150 MG TAB.ER.24H PO SCH (08:23)
[2023-09-28] MEDS: FERROUS SULFATE 325 MG TAB PO SCH (08:23)
[2023-09-28] MEDS: lamoTRIgine 25 MG TAB PO SCH ×3 (08:23→20:40)
[2023-09-28] MEDS: lisinopriL 10 MG TAB PO SCH (08:23)
[2023-09-28] MEDS: CHOLECALCIFEROL 25 MCG (1000 IU) TABLET PO SCH (08:23)
[2023-09-28] MEDS: LORazepam 1 MG TAB PO PRN ×3 (08:25→20:40)
--- NOTE | 2023-09-28 11:21 | P.PN ---
Progress Note - Text Progress Note Date: 09/28/23 Interval History: Patient was seen wandering the hallways and was directable and agreeable to speak with va underwriter in the office. Patient states that she's no longer tearful, and that she slept well last night, and was able to fall back asleep easier than usual. contiues to have poor eye contact, continues to be conrete, evasive/gaurded and continues to isolate in her room. Patient is hesitant and vague regarding how she's feeling. States she's not going to groups, and did not answer when asked about her energy level. Patient states she "forced herself to eat", And that she is feeling the meds are starting to work. At this time patient denies any suicidal or homical ideations, intent or plan. Patient denies any auditory, visual hallucinations and denies any paranoia or delusions. Patient denies any side effects from the medications and has been compliant with meds. Mental Status Exam: General Appearance: Patient appears to be overweight, glasses, dressed in hospital gown. Short hair. stated age is alert, directable, and attempts to be cooperative. Behavior: Patient is calmly seated without any agitated behavior. Constricted, Poor eye contact. Speech: Patient's speech is fluent and nonpressured. Monotone Mood/Affect: Mood is improving mildly, affect is congruent and constricted. Suicidality/Homicidality: Patient denies having any suicidal or homicidal ideation intent or plan. Perceptions: Patient denies any visual hallucinations and denies any auditory hallucinations Though content/process: There is no evidence of any delusional thought content. [place]. evasive/gaurded Memory and concentration: AOX3, grossly intact for the purposes of this session Judgment and insight: chronically poor IMPRESSIONS: Major depressive disorder, recurrent, severe without psychotic features Anxiety disorder unspecified PLAN: -Patient is admitted under voluntary status to MHU for stabilization of psychiatric symptoms and safety. Patient has signed adult voluntary form and medication consent and is placed in patient's chart. -Medications : Increase Wellbutrin XL 300 mg qd for mood Zoloft 50mg qhs for mood/anxiety, Increase Lamictal 25mg tid for mood stabilization/depression. patient is denying any rash -NRT -nonsmoker -SW on board for discharge planning. Encourage patient to participate in groups to work on coping skills. likely discharge next week once patient stabilizes psychiatrically.
[2023-09-28 16:27] LABS: Chol/HDL Ratio 3.99 Ratio; LDL Cholesterol,Calculated 135.5 mg/dL (0.0-131.0)
[2023-09-28] MEDS: SERTRALINE 50 MG TAB PO SCH (20:40)
[2023-09-28] MEDS: MONTELUKAST 10 MG TAB PO SCH (20:40)
[2023-09-28] MEDS: IBUPROFEN 600 MG TAB PO PRN (20:41)
[2023-09-29] MEDS: lisinopriL 10 MG TAB PO SCH (08:44)
[2023-09-29] MEDS: FERROUS SULFATE 325 MG TAB PO SCH (08:44)
[2023-09-29] MEDS: buPROPion XL 300 MG TAB.ER.24H PO SCH (08:44)
[2023-09-29] MEDS: lamoTRIgine 25 MG TAB PO SCH ×3 (08:44→20:33)
[2023-09-29] MEDS: CHOLECALCIFEROL 25 MCG (1000 IU) TABLET PO SCH (08:45)
[2023-09-29] MEDS: LORazepam 1 MG TAB PO PRN ×3 (08:45→20:33)
[2023-09-29] MEDS: ACETAMINOPHEN TAB 325 MG TAB PO PRN ×2 (10:55→20:32)
--- NOTE | 2023-09-29 11:39 | P.PN ---
Progress Note - Text Progress Note Date: 09/29/23 Interval History: Patient was seen wandering the hallways and was directable and agreeable to speak with senior mortgage underwriter in the office. continues to have poor eye contact, continues to be concrete, evasive/guarded and continues to isolate in her room. Patient states she went to her first group, and 'checking all those boxes' made her upset, and she hit her head on the wall. Patient states her mood was better when she woke up, however, group triggered her. States she slept well last night. Patient states that she is eating her meals. Patient continues to be hesitant and vague regarding how she's feeling. At this time patient denies any suicidal or homical ideations, intent or plan. Patient denies any auditory, visual hallucinations and denies any paranoia or delusions. Patient denies any side effects from the medications and has been compliant with meds. Mental Status Exam: General Appearance: Patient appears to be overweight, glasses, dressed in hospital gown. Short hair. stated age is alert, directable, and attempts to be cooperative. Behavior: Patient is calmly seated without any agitated behavior. Constricted, Poor eye contact. Speech: Patient's speech is fluent and nonpressured. Monotone Mood/Affect: Mood is improving mildly, affect is congruent and constricted. Suicidality/Homicidality: Patient denies having any suicidal or homicidal ideation intent or plan. Perceptions: Patient denies any visual hallucinations and denies any auditory hallucinations Though content/process: There is no evidence of any delusional thought content. [place]. evasive/gaurded Memory and concentration: AOX3, grossly intact for the purposes of this session Judgment and insight: chronically poor IMPRESSIONS: Major depressive disorder, recurrent, severe without psychotic features Anxiety disorder unspecified PLAN: -Patient is admitted under voluntary status to MHU for stabilization of psychiatric symptoms and safety. Patient has signed adult voluntary form and medication consent and is placed in patient's chart. -Medications : Wellbutrin XL 300 mg qd for mood increase Zoloft 100mg qhs for mood/anxiety, Increase Lamictal 25mg tid for mood stabilization/depression. patient is denying any rash, will continue to monitor -Ativan PRN for agitation/aggression -NRT -nonsmoker -SW on board for discharge planning. Encourage patient to participate in groups to work on coping skills. likely discharge next week once patient stabilizes psychiatrically.
[2023-09-29] MEDS: MONTELUKAST 10 MG TAB PO SCH (20:33)
[2023-09-29] MEDS: SERTRALINE 100 MG TAB PO SCH (20:33)
[2023-09-30] MEDS: ONDANSETRON 4 MG TAB PO PRN ×2 (00:47→08:33)
[2023-09-30] MEDS: MECLIZINE 25 MG TAB PO PRN (00:47)
[2023-09-30] MEDS: ACETAMINOPHEN TAB 325 MG TAB PO PRN ×2 (01:21→13:15)
[2023-09-30] MEDS: lisinopriL 10 MG TAB PO SCH (08:33)
[2023-09-30] MEDS: lamoTRIgine 25 MG TAB PO SCH ×3 (08:33→20:32)
[2023-09-30] MEDS: CHOLECALCIFEROL 25 MCG (1000 IU) TABLET PO SCH (08:33)
[2023-09-30] MEDS: IBUPROFEN 600 MG TAB PO PRN ×2 (08:34→16:50)
[2023-09-30] MEDS: buPROPion XL 300 MG TAB.ER.24H PO SCH (08:34)
[2023-09-30] MEDS: FERROUS SULFATE 325 MG TAB PO SCH (08:34)
--- NOTE | 2023-09-30 13:00 | P.PN ---
Progress Note - Text Progress Note Date: 09/30/23 Interval History: Patient was seen bedside and agreeable to speak with screenplay writer. Patient continues to have poor eye contact, continues to be concrete, evasive/guarded and continues to isolate in her room. She displays little insight into coping mechanisms for poor frustration tolerance. While discussing numerous coping mechanisms, patient was far too concrete to process the coping mechanisms and needed specific instructions. She was resistant to the idea of meditation but numerous meditation strategies were discussed with her all along with muscle tension relaxation. She was encouraged to use one of the tools, among the discussed tools, that she prefers and repeat during the daytime in an effort to aid her when she is upset. She states that her mood is "while I'm not crying". Patient externalizes blame and describes that her therapist wanted her to get checked up. Although she acknowledges that she was very overwhelmed, she does not appear to have true insight into why her therapist recommended her for potential hospitalization. States she slept well last night. Patient states that she is eating her meals. Of note, patient was started on Antivert overnight by the hospitalist due to vertigo. 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 Patient states that Antivert was very helpful for the vertigo. She is encouraged to stand up slowly and also provided a wheelchair. At this time patient denies any suicidal or homicidal ideation, intent or plan. Patient denies any auditory, visual hallucinations and denies any paranoia or delusions. Patient denies any side effects from the medications and has been compliant with meds. Denies any rashes Mental Status Exam: General Appearance: Patient appears to be overweight, glasses, dressed in p ajamas, disheveled. Short hair. stated age is alert, directable, and attempts to be cooperative. Behavior: Patient is calmly seated without any agitated behavior. Constricted, Poor eye contact. Speech: Patient's speech is fluent and nonpressured. Monotone Mood/Affect: Mood is improving mildly, affect is congruent and constricted. Suicidality/Homicidality: Patient denies having any suicidal or homicidal ideation intent or plan. Perceptions: Patient denies any visual hallucinations and denies any auditory hallucinations Though content/process: There is no evidence of any delusional thought content. [place]. Memory and concentration: AOX3, decreased attention Judgment and insight: chronically poor, impulsive IMPRESSIONS: Major depressive disorder, recurrent, severe without psychotic features Anxiety disorder unspecified PLAN: -Patient is admitted under voluntary status to MHU for stabilization of psychiatric symptoms and safety. Patient has signed adult voluntary form and medication consent and is placed in patient's chart. -Medications : Wellbutrin XL 300 mg qd for mood, Zoloft 100mg qhs for mood/anxiety, Lamictal 25mg tid for mood stabilization/depression. patient is denying any rash, will continue to monitor -Ativan PRN for agitation/aggression -Mindful meditation and other coping skills discussed -NRT -nonsmoker -SW on board for discharge planning. Encourage patient to participate in groups to work on coping skills. likely discharge next week once patient stabilizes psychiatrically. -F/u outpatient with PCP/Neuro/ENT for tinnitus and vertigo
[2023-09-30] MEDS: LORazepam 1 MG TAB PO PRN ×2 (13:15→20:32)
[2023-09-30] MEDS: SERTRALINE 100 MG TAB PO SCH (20:32)
[2023-09-30] MEDS: MONTELUKAST 10 MG TAB PO SCH (20:33)
[2023-10-01] MEDS: MECLIZINE 25 MG TAB PO PRN (07:47)
[2023-10-01] MEDS: buPROPion XL 300 MG TAB.ER.24H PO SCH (08:49)
[2023-10-01] MEDS: CHOLECALCIFEROL 25 MCG (1000 IU) TABLET PO SCH (08:49)
[2023-10-01] MEDS: lamoTRIgine 25 MG TAB PO SCH ×3 (08:49→21:43)
[2023-10-01] MEDS: lisinopriL 10 MG TAB PO SCH (08:49)
[2023-10-01] MEDS: FERROUS SULFATE 325 MG TAB PO SCH (08:49)
--- NOTE | 2023-10-01 13:11 | P.PN ---
Progress Note - Text Progress Note Date: 10/01/23 Interval History: Patient was seen bedside and agreeable to speak with com writer. Patient reports experiencing significant trouble with vertigo and nausea this morning. She states that she has never seen a neurologist for this concern. She was unable to sit up during the interview due to fear of worsening vertigo. With encouragement, patient set up and experienced dizziness. 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 Patient states that Antivert was very helpful for the vertigo yesterday but does not seem to be as helpful today. She is encouraged to stand up slowly and also provided a wheelchair. Patient says that her mood has been "all right ". She says that she had been feeling significantly better last night but that the dizziness is making her mo od somewhat worse. She claims to have practiced the square breathing that was discussed yesterday. Encouraged her to continue with this practice. She has been repeatedly requesting Ativan as needed for anxiety which she says she gets outpatient. She repeatedly asks for the Ativan to be made scheduled but discussed that this would cause her to develop tolerance and that this would not be helpful for her, especially given risk of fall. Patient currently reports low energy but endorses good sleep and appetite. She denies any other concerns. At this time patient denies any suicidal or homicidal ideation, intent or plan. Patient denies any auditory, visual hallucinations and denies any paranoia or delusions. Patient denies any side effects from the medications and has been compliant with meds. Denies any rashes Mental Status Exam: General Appearance: Patient appears to be overweight, glasses, dressed in pajamas, disheveled. Short hair. stated age is alert, directable, and attempts to be cooperative. Behavior: Patient is calmly seated without any agitated behavior. Constricted, Poor eye contact. Speech: Patient's speech is fluent and nonpressured. Monotone Mood/Affect: Mood is improving mildly, affect is congruent and constricted. Suicidality/Homicidality: Patient denies having any suicidal or homicidal ideation intent or plan. Perceptions: Patient denies any visual hallucinations and denies any auditory hallucinations Though content/process: There is no evidence of any delusional thought content. [place]. Memory and concentration: AOX3, decreased attention Judgment and insight: chronically poor, impulsive IMPRESSIONS: Major depressive disorder, recurrent, severe without psychotic features Anxiety disorder unspecified PLAN: -Patient is admitted under voluntary status to MHU for stabilization of psychiatric symptoms and safety. Patient has signed adult voluntary form and medication consent and is placed in patient's chart. -Medications : Wellbutrin XL 300 mg qd for mood, Zoloft 100mg qhs for mood/anxiety, Lamictal 25mg tid for mood stabilization/depression. patient is denying any rash, will continue to monitor -Neuro consult for vertigo -Lower Ativan to 0.5 mg TID PRN for anxiety -Mindful meditation and other coping skills discussed -NRT -nonsmoker -SW on board for discharge planning. Encourage patient to participate in groups to work on coping skills. likely discharge next week once patient stabilizes psychiatrically. -F/u outpatient with PCP/Neuro/ENT for tinnitus and vertigo
[2023-10-01] MEDS: IBUPROFEN 600 MG TAB PO PRN ×2 (13:50→21:49)
[2023-10-01] MEDS: LORazepam 0.5 MG TAB PO SCH ×2 (14:19→21:43)
[2023-10-01] MEDS: MONTELUKAST 10 MG TAB PO SCH (21:43)
[2023-10-01] MEDS: SERTRALINE 100 MG TAB PO SCH (21:44)
[2023-10-02] MEDS: CHOLECALCIFEROL 25 MCG (1000 IU) TABLET PO SCH (08:35)
[2023-10-02] MEDS: buPROPion XL 300 MG TAB.ER.24H PO SCH (08:36)
[2023-10-02] MEDS: lisinopriL 10 MG TAB PO SCH (08:36)
[2023-10-02] MEDS: LORazepam 0.5 MG TAB PO SCH ×2 (08:36→20:22)
[2023-10-02] MEDS: FERROUS SULFATE 325 MG TAB PO SCH (08:36)
[2023-10-02] MEDS: lamoTRIgine 25 MG TAB PO SCH ×2 (08:36→20:23)
[2023-10-02] MEDS: IBUPROFEN 600 MG TAB PO PRN ×2 (08:37→16:04)
--- NOTE | 2023-10-02 10:29 | P.PN ---
Progress Note - Text Progress Note Date: 10/02/23 Interval History: Patient was seen in the hallways, and agreeable to speak with signwriter in the office. Patient says that her mood has been ok, and has been attending groups. She states that she is tired, and hasn't been sleeping well. Claims that since she hit her head, she's been dizzy, and her head hurts. claims that she did hit her head a few times over the weekend however now has no thoughts of self harm. Continues to have poor eye contact, and states that she has been eating. She continues to be guarded and evasive. She denies any other concerns. At this time patient denies any suicidal or homicidal ideation, intent or plan. Patient denies any auditory, visual hallucinations and denies any paranoia or delusions. Patient denies any side effects from the medications and has been compliant with meds. Denies any rashes Mental Status Exam: General Appearance: Patient appears to be overweight, glasses, dressed in pajamas, disheveled. Short hair. stated age is alert, directable, and attempts to be cooperative. Behavior: Patient is calmly seated without any agitated behavior. Constricted, Poor eye contact, improving mildly Speech: Patient's speech is fluent and nonpressured. Monotone Mood/Affect: Mood is improving mildly, affect is congruent and constricted. Suicidality/Homicidality: Patient denies having any suicidal or homicidal ideation intent or plan. Perceptions: Patient denies any visual hallucinations and denies any auditory hallucinations Though content/process: There is no evidence of any delusional thought content. [place]. poverty of content. Memory and concentration: AOX3, decreased attention Judgment and insight: chronically poor, impulsive, improving mildly IMPRESSIONS: Major depressive disorder, recurrent, severe without psychotic features Anxiety disorder unspecified PLAN: -Patient is admitted under voluntary status to MHU for stabilization of psychiatric symptoms and safety. Patient has signed adult voluntary form and medication consent and is placed in patient's chart. -Medications : Increase Wellbutrin XL 450 mg qd for mood, Zoloft 150mg qhs for mood/anxiety, Increase Lamictal 50mg bid for mood stabilization/depression. decrease Ativan 0.5 bid patient is denying any rash, will continue to monitor -Neuro consult for vertigo -NRT -nonsmoker -SW on board for discharge planning. Encourage patient to participate in groups to work on coping skills. likely discharge this week once patient stabilizes psychiatrically.
[2023-10-02] MEDS: ACETAMINOPHEN TAB 325 MG TAB PO PRN (20:22)
[2023-10-02] MEDS: MONTELUKAST 10 MG TAB PO SCH (20:23)
[2023-10-02] MEDS: SERTRALINE 100 MG TAB PO SCH (20:23)
[2023-10-03] MEDS ORDERED: buPROPion XL 150 MG TAB.ER.24H PO SCH (09:00)
[2023-10-03] MEDS: FERROUS SULFATE 325 MG TAB PO SCH (09:34)
[2023-10-03] MEDS: CHOLECALCIFEROL 25 MCG (1000 IU) TABLET PO SCH (09:34)
[2023-10-03] MEDS: LORazepam 0.5 MG TAB PO SCH ×2 (09:35→20:39)
[2023-10-03] MEDS: lamoTRIgine 25 MG TAB PO SCH ×2 (09:35→20:39)
[2023-10-03] MEDS: IBUPROFEN 600 MG TAB PO PRN ×3 (09:35→20:39)
[2023-10-03] MEDS: lisinopriL 10 MG TAB PO SCH (09:35)
[2023-10-03] MEDS ORDERED: traZODone HCL 50 MG TAB PO PRN (09:42)
--- NOTE | 2023-10-03 09:54 | P.PN ---
Progress Note - Text Progress Note Date: 10/03/23 Interval History: Patient was seen in the hallways, and agreeable to speak with editorial writer in the office. Patient says that she's 'been better". States that she seen something crawl across the wall last night, and then realized it wasn't there, and it threw her into a panic attack. She states that she has been attending most groups. Patient states that she hasn't talked to her much since she's been admitted, however, states he put in for FMLA at her job for her. Continues to have poor eye contact, however this is improving. states that she has been eating. She continues to be guarded and evasive. She denies any other concerns. At this time patient denies any suicidal or homicidal ideation, intent or plan. Patient denies any auditory, visual hallucinations and denies any paranoia or delusions. Patient denies any side effects from the medications and has been c ompliant with meds. Denies any rashes Mental Status Exam: General Appearance: Patient appears to be overweight, glasses, dressed in pajamas, disheveled. Short hair. stated age is alert, directable, and attempts to be cooperative. Behavior: Patient is calmly seated without any agitated behavior. Constricted, Poor eye contact, improving mildly Speech: Patient's speech is fluent and nonpressured. [place], improving mildly Mood/Affect: Mood is improving mildly, affect is congruent and constricted. Suicidality/Homicidality: Patient denies having any suicidal or homicidal ideation intent or plan. Perceptions: Patient denies any visual hallucinations and denies any auditory hallucinations Though content/process: There is no evidence of any delusional thought content. [place]. poverty of content. Memory and concentration: AOX3, decreased attention, improving mildly Judgment and insight: chronically poor, impulsive, improving mildly IMPRESSIONS: Major depressive disorder, recurrent, severe without psychotic features Anxiety disorder unspecified PLAN: -Patient is admitted under voluntary status to MHU for stabilization of psychiatric symptoms and safety. Patient has signed adult voluntary form and medication consent and is placed in patient's chart. -Medications decrease Wellbutrin XL 300mg qd for mood, increase Zoloft 200mg qd for mood/anxiety, decrease Lamictal 25mg bid for mood stabilization/depression. add trazadone 50mg qhs prn for sleep, Ativan 0.5 bid scheduled for anxiety. patient is denying any rash, will continue to monitor -NRT -nonsmoker -SW on board for discharge planning. Encourage patient to participate in groups to work on coping skills. likely discharge this week once patient stabilizes psychiatrically.
[2023-10-03] MEDS: SERTRALINE 100 MG TAB PO SCH (10:47)
[2023-10-03] MEDS: MONTELUKAST 10 MG TAB PO SCH (20:39)
[2023-10-04] MEDS: buPROPion XL 300 MG TAB.ER.24H PO SCH (08:19)
[2023-10-04] MEDS: FERROUS SULFATE 325 MG TAB PO SCH (08:19)
[2023-10-04] MEDS: LORazepam 0.5 MG TAB PO SCH ×2 (08:19→20:38)
[2023-10-04] MEDS: lamoTRIgine 25 MG TAB PO SCH ×2 (08:20→20:39)
[2023-10-04] MEDS: CHOLECALCIFEROL 25 MCG (1000 IU) TABLET PO SCH (08:21)
[2023-10-04] MEDS: SERTRALINE 100 MG TAB PO SCH (08:22)
[2023-10-04] MEDS: IBUPROFEN 600 MG TAB PO PRN (08:43)
[2023-10-04] MEDS: lisinopriL 10 MG TAB PO SCH (08:47)
--- NOTE | 2023-10-04 11:38 | P.PN ---
Progress Note - Text Progress Note Date: 10/04/23 Interval History: Patient was seen in group, and agreeable to speak with telegraphic typewriter operator in the office. Patient says that she's feeling better. She states that she has been attending most groups. Continues to have poor eye contact, however this is improving. states that she has been eating. States she slept well last night. appears to have an improvement in her affect today and is brighter. and states she feels alot better when she woke up and rested better. Will continue to monitor positive effects of medications. Talked with patient about getting up from a laying/sitting position slowly, due to lowered blood pressure. Will continue to monitor. She denies any other concerns. At this time patient denies any suicidal or homicidal ideation, intent or plan. Patient denies any auditory, visual hallucinations and denies any paranoia or delusions. Patient denies any side effects from the medications and has been compliant with meds. Denies any rashes Mental Status Exam: General Appearance: Patient appears to be overweight, glasses, dressed in pajamas.. Short hair. stated age is alert, directable, and attempts to be cooperative. Behavior: Patient is calmly seated without any agitated behavior. Constricted, Poor eye contact, improving Speech: Patient's speech is fluent and nonpressured, improving Mood/Affect: Mood is improving, affect is congruent and constricted. improving Suicidality/Homicidality: Patient denies having any suicidal or homicidal ideation intent or plan. Perceptions: Patient denies any visual hallucinations and denies any auditory hallucinations Though content/process: There is no evidence of any delusional thought content. [place]. poverty of content. improving Memory and concentration: AOX3. Judgment and insight: chronically poor, impulsive, improving IMPRESSIONS: Major depressive disorder, recurrent, severe without psychotic features Anxiety disorder unspecified PLAN: -Patient is admitted under voluntary status to MHU for stabilization of psychiatric symptoms and safety. Patient has signed adult voluntary form and medication consent and is placed in patient's chart. -Medications Wellbutrin XL 300mg qd for mood, Zoloft 200mg qd for mood/anxiety, Lamictal 25mg bid for mood stabilization/depression. increase trazadone 75mg qhs for sleep, Ativan 0.5 bid scheduled for anxiety. patient is denying any rash, will continue to monitor -NRT -nonsmoker -SW on board for discharge planning. Encourage patient to participate in groups to work on coping skills. likely discharge this week once patient stabilizes psychiatrically possibly or monday
[2023-10-04] MEDS: MONTELUKAST 10 MG TAB PO SCH (20:38)
[2023-10-04] MEDS ORDERED: traZODone HCL 50 MG TAB PO SCH (21:00)
[2023-10-05] MEDS: IBUPROFEN 600 MG TAB PO PRN (05:13)
[2023-10-05] MEDS: FERROUS SULFATE 325 MG TAB PO SCH (08:02)
[2023-10-05] MEDS: SERTRALINE 100 MG TAB PO SCH (08:02)
[2023-10-05] MEDS: LORazepam 0.5 MG TAB PO SCH ×2 (08:02→20:39)
[2023-10-05] MEDS: CHOLECALCIFEROL 25 MCG (1000 IU) TABLET PO SCH (08:02)
[2023-10-05] MEDS: buPROPion XL 300 MG TAB.ER.24H PO SCH (08:02)
[2023-10-05] MEDS: lamoTRIgine 25 MG TAB PO SCH ×2 (08:02→20:37)
--- NOTE | 2023-10-05 09:09 | P.PN ---
Progress Note - Text Progress Note Date: 10/05/23 Interval History: Patient was seen in the hallway, and agreeable to speak with flex o writer operator in the office. Patient says that she's feeling good. Patient is having problems with another patient on the unit, being too close to her, and following her around. Patient informed nursing staff, and they will continue to monitor. She states that she has been attending groups. States her appetite is better. States she slept well last night. appears to have an improvement in her affect and is brighter. Will continue to monitor positive effects of medications. Patient states home is safe of guns/weapons. Patient has good eye contact today, and is smiling, and laughing. She denies any other concerns. At this time patient denies any suicidal or homicidal ideation, intent or plan. Patient denies any auditory, visual hallucinations and denies any paranoia or delusions. Patient denies any side effects from the medications and has been compliant with meds. Denies any rashes Mental Status Exam: General Appearance: Patient appears to be overweight, glasses, dressed in pajamas.. Short hair. stated age is alert, directable, and attempts to be cooperative. Behavior: Patient is calmly seated without any agitated behavior. Speech: Patient's speech is fluent and nonpressured, improving Mood/Affect: Mood is improving, affect is congruent and constricted. improving Suicidality/Homicidality: Patient denies having any suicidal or homicidal ideation intent or plan. Perceptions: Patient denies any visual hallucinations and denies any auditory hallucinations Though content/process: There is no evidence of any delusional thought content. improving Memory and concentration: AOX3. Judgment and insight: chronically poor, improving IMPRESSIONS: Major depressive disorder, recurrent, severe without psychotic features Anxiety disorder unspecified PLAN: -Patient is admitted under voluntary status to MHU for stabilization of psychiatric symptoms and safety. Patient has signed adult voluntary form and medication consent and is placed in patient's chart. -Medications Wellbutrin XL 300mg qd for mood, Zoloft 200mg qd for mood/anxiety, Lamictal 25mg bid for mood stabilization/depression. increase trazadone 100mg qhs for sleep, Ativan 0.5 bid scheduled for anxiety. patient is denying any rash, will continue to monitor -NRT -nonsmoker -SW on board for discharge planning. Encourage patient to participate in groups to work on coping skills. likely discharge tomorrow back home if patient continues to improve.
[2023-10-05] MEDS: MONTELUKAST 10 MG TAB PO SCH (20:37)
[2023-10-05] MEDS ORDERED: traZODone HCL 100 MG TAB PO SCH (21:00)
[2023-10-06] MEDS: LORazepam 0.5 MG TAB PO SCH (08:56)
[2023-10-06] MEDS: lamoTRIgine 25 MG TAB PO SCH (08:56)
[2023-10-06] MEDS: FERROUS SULFATE 325 MG TAB PO SCH (08:56)
[2023-10-06] MEDS: buPROPion XL 300 MG TAB.ER.24H PO SCH (08:56)
[2023-10-06] MEDS: CHOLECALCIFEROL 25 MCG (1000 IU) TABLET PO SCH (08:56)
[2023-10-06] MEDS: SERTRALINE 100 MG TAB PO SCH (08:57)
[2023-10-06 09:22] VITALS: BP 109/59; PULSE 92; RESP 18; TEMP 97.7
--- NOTE | 2023-10-06 10:25 | P.DS ---
Providers Date of admission: 09/27/23 03:07 Expected date of discharge: 10/06/23 Attending physician: Marcos Hassan MD Consults: 09/27/23 03:09 Consult Physician Routine Consulting Provider: Meir Aviles Consult Reason/Comments: H&P for mental health admission. Do you want consulting provider notified?: Yes, Notify in am Primary care physician: Meir Aviles - Discharge Diagnosis(es) (1) Major depressive disorder, recurrent severe without psychotic features Current Visit: Yes Status: Acute Priority: High (2) Anxiety disorder Current Visit: Yes Status: Acute Priority: Medium Hospital Course: Admission HPI: Admission note was completed by commercial real estate underwriter "Patient presented to the hospital on 09/26 under recommendations of her therapist. States her depression is at a peak, and therapist suggested inpatient, because patient told her she "wanted to check out of her head" explaining that she would want to become a vegatable, and not have to make decisions. endorsing passive SI, nio plan. States stressors include a no contact order that her 18 year old son placed on her, loss of her pets, states her is useless, and don't help her with anything. [place] that all week, she didn't want to live. Claims to always have anxiety, and paranoia comes with her anxiety. Says her sleep goes in spurts, and she will sleep off and on. Claims she has racing thoughts at night. Isolates herself to her room at home. Says her appetite comes and goes. Patient is very monotone. Guarded. Patient admits to suicidal thoughts currently, denies homicidal ideations intent or plan. At this time patient denies any auditory or visual hallucinations. Patient denies any flight of ideas racing thoughts. Patient denies using drugs/nicotine. Drinks very rarely." Hospital course: Upon admission to the unit patient was directable and agreeable to commence treatment and signed adult voluntary form. Patient got along well with other patients on the unit and followed unit protocol. Patient was initially isolative, depressed and irritable however with time in treatment she eventually was compliant with the medications and denied any side effects throughout hospital course. Patient was started on Wellbutrin XL 300 mg daily for mood, Zoloft 200 mg daily for mood/anxiety, continue to patient's home dose of Lamictal 25 mg twice a day for mood stabilization/depression, trazodone 100 mg daily at bedtime for sleep, continued on with Ativan 0.5 mg twice a day scheduled for anxiety as this is patient's home dose. Patient was informed of the possibility of a rash from Lamictal and she is denying any current rash and we'll continue to monitor and seek urgent medical attention if this does occur. Patient spoke of her stressors and engaged in therapy both group and individual. Patient was also seen by medical team for history and physical exam. Throughout the course of the hospitalization patient gradually improved with regards to mood, anxiety, sleep and returned back to their baseline level of functioning. On the day of discharge patient denied any suicidal or homicidal ideations intent or plan denied any auditory or visual hallucinations. Patient endorsed wanting to live for her health and her future. The patient denied any access to guns or weapons. Patient denied any paranoia and did not endorse any delusions. Patient does not have a significant history of substance abuse and was counseled on abstaining from all substances including alcohol and marijuana. Patient was also counseled on the medications and need for regular compliance and was encouraged to follow-up with their outpatient appointment for mental health and also for primary care. Prior to discharge a family meeting will be arranged by social professionals to answer any questions and ensure safety upon discharge. Mental status exam: General Appearance: Patient appears to be mildly overweight, stated age is alert, pleasant, and cooperative. Patient is in no acute distress and has improved hygiene and grooming Behavior: Patient is calmly seated without any agitated behavior. Speech: Patient's speech is fluent and nonpressured. Mood/Affect: Patient reports their mood is "good", affect is congruent and euthymic. Suicidality/Homicidality: Patient denies having any suicidal or homicidal ideation intent or plan. Perceptions: Patient denies any auditory or visual hallucinations. Though content/process: There is no evidence of any delusional thought content and thought process is linear and goal-directed. more future oriented Memory and concentration: AOX3, grossly intact for the purposes of this session. Can spell "WORLD" backwards correctly. Judgment and insight: improved with guarded prognosis Impression: Major depressive disorder, recurrent, severe without psychotic features Anxiety disorder unspecified Plan: -Continue with discharge today as patient has improved and stabilized psychiatrically and is not currently an imminent threat to herself and/or others. Patient will remain at chronically elevated risk for harm to self and/or others due to her impulsivity. -Continue medications: Wellbutrin XL 300 mg daily for mood, Zoloft 200 mg daily for mood/anxiety, Lamictal 25 mg twice a day for mood stabilization/depression, trazodone 100 mg daily at bedtime for sleep/mood, patient can continue on with her home dose of Ativan 0.5 mg twice a day scheduled for anxiety. -Patient was counseled on the need for medication compliance and appropriate follow-up at mental health and also primary care for medical issues. Patient verbalized understanding and agreed. -Social work to arrange for and conduct family meeting to ensure safety upon discharge and answer any questions/concerns. Social work also to arrange for patients follow up appointments with [facility] for psychiatric care along with follow up with primary care provider. -Patient counseled on abstaining from recreational drugs and marijuana and alcohol. Was informed/educated on the adverse effects on their physical and mental health. Patient verbally agreed and understood. -Patient was instructed to return to the hospital or seek immediate medical care if their psychiatric or medical symptoms do worsen or reoccur. Allergies Allergy/AdvReac Type Severity Reaction Status Date / Time Penicillins Allergy Rash/Hives Verified 09/27/23 10:13 clindamycin AdvReac Nausea & Verified 09/27/23 10:13 Vomiting Laboratory Results WBC 9.0 k/uL (3.8-10.6) 09/28/23 07:16 RBC 4.64 m/uL (3.80-5.40) 09/28/23 07:16 Hgb 12.7 gm/dL (11.4-16.0) 09/28/23 07:16 Hct 39.4 % (34.0-46.0) 09/28/23 07:16 MCV 84.9 fL (80.0-100.0) 09/28/23 07:16 MCH 27.4 pg (25.0-35.0) 09/28/23 07:16 MCHC 32.3 g/dL (31.0-37.0) 09/28/23 07:16 RDW 14.3 % (11.5-15.5) 09/28/23 07:16 Plt Count 299 k/uL (150-450) 09/28/23 07:16 MPV 7.6 09/28/23 07:16 Neutrophils % 61 % 09/28/23 07:16 Lymphocytes % 29 % 09/28/23 07:16 Monocytes % 5 % 09/28/23 07:16 Eosinophils % 4 % 09/28/23 07:16 Basophils % 0 % 09/28/23 07:16 Neutrophils # 5.4 k/uL (1.3-7.7) 09/28/23 07:16 Lymphocytes # 2.6 k/uL (1.0-4.8) 09/28/23 07:16 Monocytes # 0.4 k/uL (0-1.0) 09/28/23 07:16 Eosinophils # 0.3 k/uL (0-0.7) 09/28/23 07:16 Basophils # 0.0 k/uL (0-0.2) 09/28/23 07:16 Sodium 140 mmol/L (137-145) 09/28/23 07:16 Potassium 4.1 mmol/L (3.5-5.1) 09/28/23 07:16 Chloride 105 mmol/L (98-107) 09/28/23 07:16 Carbon Dioxide 26 mmol/L (22-30) 09/28/23 07:16 Anion Gap 9 mmol/L 09/28/23 07:16 BUN 15 mg/dL (7-17) 09/28/23 07:16 Creatinine 0.66 mg/dL (0.52-1.04) 09/28/23 07:16 Est GFR (CKD-EPI)AfAm >90 (>60 ml/min/1.73 sqM) 09/28/23 07:16 Est GFR (CKD-EPI)NonAf >90 (>60 ml/min/1.73 sqM) 09/28/23 07:16 Glucose 92 mg/dL (74-99) 09/28/23 07:[address] Glu mg/dL 117 mg/dL 09/28/23 07:16 Hemoglobin A1c 5.7 % (<=6.0) 09/28/23 07:16 Calcium 9.1 mg/dL (8.4-10.2) 09/28/23 07:16 Total Bilirubin 0.4 mg/dL (0.2-1.3) 09/28/23 07:16 AST 22 U/L (14-36) 09/28/23 07:16 ALT 20 U/L (4-34) 09/28/23 07:16 Alkaline Phosphatase 46 U/L (38-126) 09/28/23 07:16 Total Protein 6.7 g/dL (6.3-8.2) 09/28/23 07:16 Albumin 3.6 g/dL (3.5-5.0) 09/28/23 07:16 Triglycerides 124.00 mg/dL (0.00-149.00) 09/28/23 07:16 Cholesterol 214.00 mg/dL (0.00-200.00) H 09/28/23 07:16 LDL Cholesterol, Calc 135.5 mg/dL (0.0-131.0) H 09/28/23 07:16 VLDL Cholesterol, Calc 24.80 mg/dL (5.00-40.00) 09/28/23 07:16 HDL Cholesterol 53.70 mg/dL (40.00-60.00) 09/28/23 07:16 Cholesterol/HDL Ratio 3.99 Ratio 09/28/23 07:16 TSH 0.578 mIU/L (0.465-4.680) 09/28/23 07:16 Urine Color Light Yellow 09/27/23 00:09 Urine Appearance Clear (Clear) 09/27/23 00:09 Urine pH 6.5 (5.0-8.0) 09/27/23 00:09 Ur Specific [place] 1.020 (1.001-1.035) 09/27/23 00:09 Urine Protein Negative (Negative) 09/27/23 00:09 Urine Glucose (UA) Negative (Negative) 09/27/23 00:09 Urine Ketones Negative (Negative) 09/27/23 00:09 Urine Blood Negative (Negative) 09/27/23 00:09 Urine Nitrite Negative (Negative) 09/27/23 00:09 Urine Bilirubin Negative (Negative) 09/27/23 00:09 Urine Urobilinogen 0.2 mg/dL (<2.0) 09/27/23 00:09 Ur Leukocyte Esterase Negative (Negative) 09/27/23 00:09 Urine HCG, Qual Not Detected (Not Detectd) 09/27/23 00:09 Urine Opiates Screen Detected (NotDetected) H 09/27/23 00:09 Ur Oxycodone Screen Not Detected (NotDetected) 09/27/23 00:09 Urine Methadone Screen Not Detected (NotDetected) 09/27/23 00:09 Ur Propoxyphene Screen Not Detected (NotDetected) 09/27/23 00:09 Ur Barbiturates Screen Not Detected (NotDetected) 09/27/23 00:09 U Tricyclic Antidepress Not Detected (NotDetected) 09/27/23 00:09 Ur Phencyclidine Scrn Not Detected (NotDetected) 09/27/23 00:09 Ur Amphetamines Screen Detected (NotDetected) H 09/27/23 00:09 U Methamphetamines Scrn Not Detected (NotDetected) 09/27/23 00:09 U Benzodiazepines Scrn Detected (NotDetected) H 09/27/23 00:09 Urine Cocaine Screen Not Detected (NotDetected) 09/27/23 00:09 U Marijuana (THC) Screen Not Detected (NotDetected) 09/27/23 00:09 SARS-CoV-2 (PCR) Not Detected (Not Detectd) 09/27/23 00:15 Vital Signs Temp 97.4 F L 10/04/23 06:58 Pulse 89 10/05/23 07:01 Resp 16 10/04/23 11:27 BP 123/67 10/05/23 07:01 Pulse Ox 98 10/02/23 07:21 FiO2 Patient Condition at Discharge: Stable Plan - Discharge Summary Discharge Rx Participant: Yes New Discharge Prescriptions: New lamoTRIgine [LaMICtal] 25 mg PO BID 30 Days #60 tab Sertraline [Zoloft] 200 mg PO DAILY 30 Days #60 tab LORazepam [Ativan] 0.5 mg PO BID #0 tab traZODone HCL [Desyrel] 100 mg PO HS 30 Days #30 tab buPROPion XL [Wellbutrin XL] 300 mg PO DAILY 30 Days #30 tab Continue Montelukast Sodium [Singulair] 10 mg PO HS 30 Days tab modafiniL [Provigil] 200 mg PO DAILY Calcium Carbonate [Calcium] 1,200 mg PO DAILY Alpha Lipoic Acid 600 mg PO DAILY Cholecalciferol [Vitamin D3 (25 Mcg = 1000 Iu)] 50 mcg PO DAILY Ferrous Sulfate [Iron (65 MG Elemental)] 325 mg PO DAILY Turmeric Root Extract [Turmeric] 500 mg PO DAILY S-Adenosylmethionine Sul Tosyl [Yuri-E] 400 mg PO DAILY Ascorbic Acid [Vitamin C] 2,000 mg PO DAILY Discontinued DULoxetine HCL [Cymbalta] 60 mg PO BID 30 Days capsule lamoTRIgine [LaMICtal] 25 mg PO BID 5Hydroxytryptophan(Oxitriptan) [5-Htp] 200 mg PO DAILY LORazepam [Ativan] 0.5 mg PO TID PRN PRN Reason: Anxiety Dextroamphetamine/Amphetamine [Adderall] 20 mg PO BID@0700,1300 lisinopriL [Prinivil] 10 mg PO DAILY Discharge Medication List Montelukast Sodium [Singulair] 10 mg PO HS 30 Days tab 08/27/21 [Rx] modafiniL [Provigil] 200 mg PO DAILY 10/03/22 [History] Alpha Lipoic Acid 600 mg PO DAILY 05/12/23 [History] Ascorbic Acid [Vitamin C] 2,000 mg PO DAILY 05/12/23 [History] Calcium Carbonate [Calcium] 1,200 mg PO DAILY 05/12/23 [History] Cholecalciferol [Vitamin D3 (25 Mcg = 1000 Iu)] 50 mcg PO DAILY 05/12/23 [History] Ferrous Sulfate [Iron (65 MG Elemental)] 325 mg PO DAILY 05/12/23 [History] S-Adenosylmethionine Sul Tosyl [Yuri-E] 400 mg PO DAILY 05/12/23 [History] Turmeric Root Extract [Turmeric] 500 mg PO DAILY 05/12/23 [History] LORazepam [Ativan] 0.5 mg PO BID #0 tab 10/06/23 [Rx] Sertraline [Zoloft] 200 mg PO DAILY 30 Days #60 tab 10/06/23 [Rx] buPROPion XL [Wellbutrin XL] 300 mg PO DAILY 30 Days #30 tab 10/06/23 [Rx] lamoTRIgine [LaMICtal] 25 mg PO BID 30 Days #60 tab 10/06/23 [Rx] traZODone HCL [Desyrel] 100 mg PO HS 30 Days #30 tab 10/06/23 [Rx] Follow up Appointment(s)/Referral(s): [facility] [Outside] - 10/12/23 11:00 am (10/12 @ 11:00 therapy 10/12 @ 12:00 med review ) Meir Aviles MD [Primary Care Provider] - 1-2 days Activity/Diet/Wound Care/Special Instructions: Avoid the use of street drugs and alcohol. Take all medications as prescribed. When you are in need of refills on your medications, please contact your medical provider and/or outpatient psychiatrist/provider to have this done. Please go to your scheduled outpatient appointment for aftercare treatment. If symptoms return or become worse, call the crisis line at and/or go to the nearest emergency room for evaluation. National Suicide Hotline 988. Discharge Disposition: HOME SELF-CARE
[2023-10-06] MEDS: IBUPROFEN 600 MG TAB PO PRN (11:05)
== END 2023-10-06 13:17 | disposition home or self-care (01) | DRG 885 ==
LOC: EC 13:46 → 3MHU 09-27 03:07
PROVIDERS: ADMIT Psychiatry & Neurology Psychiatry; ATTEND Psychiatry & Neurology Psychiatry
DX: F33.2 Major depressive disorder, recurrent severe without psychotic features (principal); F41.9 Anxiety disorder, unspecified; J30.9 Allergic rhinitis, unspecified; Z79.899 Other long term (current) drug therapy; Z81.8 Family history of other mental and behavioral disorders; Z91.148 Patient's other noncompliance with medication regimen for other reason; Z91.199 Patient's noncompliance with other medical treatment and regimen due to unspecified reason; Z91.81 History of falling; Z88.0 Allergy status to penicillin; Z88.2 Allergy status to sulfonamides; Z71.89 Other specified counseling; W22.01XA Walked into wall, initial encounter; Z11.52 Encounter for screening for COVID-19
CPT/HCPCS: 80053; 80061; 80306; 81003; 81025; 83036; 84443; 85025; 87635; 99285

== ENCOUNTER → 2023-12-25 | Outpatient (CLI) | payer MEDICAID ==
[2023-12-25 09:34] VITALS: BP 138/99; PULSE 103; RESP 15; TEMP 97.2
--- NOTE | 2023-12-25 14:06 | P.PAINPG ---
Objective - Vital Signs Vital signs: Intake & Output 12/24/23 12/25/23 12/25/23 18:59 06:59 18:59 Weight 92.079 kg PQRS Measure Charge Sheet Comment: HISTORY OF PRESENT ILLNESS: A 43 yr old female presents today w severe and chronic LBP x 6 yrs secondary to DDD, spondylosis and facet arthropathy without myelopathy for evaluation. Pt states pain level is provoked at 6 /10 in intensity, constant, localized in the lower lumbar spine, predominantly axial, sharp in character w occasional shooting pain towards the buttocks and RLE. Pain is provoked by standing from a sitting position. Pain is alleviated by chiropractic treatments years ago, PT x 6 -8 wks in 2020, physician guided home exercises & stretches every other day x 6 mo, medications, heat, ice, repositioning and rest. Oswestry axial pain score of 22. Interventional procedures include COLTEN L5-S1 x2 Medications include Tramadol, Ibu REVIEW OF ORGAN SYSTEMS: CONSTITUTIONAL: No fevers or chills. No recent weight loss. NEUROLOGICAL: + numbness and tingling along the distal extremities. No seizure disorders or headaches. MUSCULOSKELETAL: + pain PSYCHIATRIC: Denies current depression or suicidal thoughts. Physical Examinations : Constitutional : Cooperative , not in acute distress . Neurologic : Cranial nerve II to XII intact. No focal neurological deficits. Psychiatric : alert & oriented x 3. Matching mood & appropriate affect. Judgment & insight intact. Musculoskeletal : Cervical Spine Motor strength in the deltoid and biceps: Normal right side. Normal Left side Motor strength biceps and the wrist extensors: Normal right side . Normal left side Motor strength in the triceps muscle: Normal right side. Normal left side Deep tendon reflexes: Normal at the biceps. Normal at Brachioradialis. Normal at triceps Vertebral body tenderness to deep palpation over Cervical facet loading test: positive bilaterally Spurling test: positive bilaterally Neck distraction test: positive bilaterally Samantha sign: positive bilaterally Lumbar spine Motor strength lower extremities ,thigh and legs 5/5 Right side , 5/5 Left side Deep tendon reflexes : Normal Knee Jerk. Normal Ankle Jerk Vertebral body tenderness over L5 Cespedes Test positive Lumbar facet Loading Test: positive Right / positive Left Range of motion of the lumbar spine Flexion 30 degrees, extension 10 degrees Straight Leg Raise test: Left/ Right positive at <35 degrees Olga test: positive right / positive left. Severe tenderness over the Sacroiliac joint on the Right / Left sides Gaenslen test: positive bilaterally Seated flexion test: positive bilaterally. Sacral spine : Severe tenderness over the Sacroiliac joint: right side / left side Range of motion: Flexion of the lumbar spine <60 degrees Range of motion: Extension of the lumbar spine <20 degrees Gaenslen's Test positive Rico's Test positive Olga test: positive right side / left side Thigh Thrust Test Sacral Thrust Test Imaging: MRI non contrast of the lumbar spine from 03/11/23 reviewed Assessment/ Plan : Lumbar spondylosis Patient has COLTEN L5-S1. May need a series of injections for optimal pain relief. Risk, benefits of procedure discussed and patient verbalized understanding. Protocol for discontinuation/continuation of medication surrounding procedure discussed. All questions answered. I have spent greater than 30 minutes on patient care today. Dr Logan was available by phone for the evaluation of this patient. The time was used to review the medical records including relevant urine studies and Prescription history (MAPs), review of the available imaging, evaluation and examination of the patient, coordination of care with the medical staff and if applicable referring physicians, as well as creation of the medical record PQRS Narrative: Smoking Status Never smoker Hx Alcohol Use (MH) Yes Home Medications: Ambulatory Orders Montelukast Sodium [Singulair] 10 mg PO HS 30 Days tab 08/27/21 modafiniL [Provigil] 200 mg PO DAILY 10/03/22 Alpha Lipoic Acid 600 mg PO DAILY 05/12/23 Ascorbic Acid [Vitamin C] 2,000 mg PO DAILY 05/12/23 Calcium Carbonate [Calcium] 1,200 mg PO DAILY 05/12/23 Cholecalciferol [Vitamin D3 (25 Mcg = 1000 Iu)] 50 mcg PO DAILY 05/12/23 Ferrous Sulfate [Iron (65 MG Elemental)] 325 mg PO DAILY 05/12/23 S-Adenosylmethionine Sul Tosyl [Yuri-E] 400 mg PO DAILY 05/12/23 Turmeric Root Extract [Turmeric] 500 mg PO DAILY 05/12/23 LORazepam [Ativan] 0.5 mg PO BID #0 tab 10/06/23 Sertraline [Zoloft] 200 mg PO DAILY 30 Days #60 tab 10/06/23 buPROPion XL [Wellbutrin XL] 300 mg PO DAILY 30 Days #30 tab 10/06/23 lamoTRIgine [LaMICtal] 25 mg PO BID 30 Days #60 tab 10/06/23 traZODone HCL [Desyrel] 100 mg PO HS 30 Days #30 tab 10/06/23 Controlled Substance Measures - Controlled Substance Measures Is patient prescribed a controlled substance at discharge?: No
== END ==
LOC: PNWHC3 08:29
PROVIDERS: ATTEND Specialist
DX: M47.816 Spondylosis without myelopathy or radiculopathy, lumbar region (principal); Z88.0 Allergy status to penicillin; Z88.1 Allergy status to other antibiotic agents
CPT/HCPCS: 99211

== ENCOUNTER → 2023-12-28 | Outpatient (CLI) | payer MEDICAID ==
[2023-12-28 11:06] LABS: Basophils # (A) 0.08 X 10*3/uL (0.00-0.10); Basophils % (A) 0.6 %; Eosinophils # (A) 0.49 X 10*3/uL (0.04-0.35); Eosinophils % (A) 3.4 %; HCT 41.5 % (37.2-46.3); HGB 13.6 g/dL (12.0-15.0); Lymphocytes # (A) 3.25 X 10*3/uL (0.90-5.00); Lymphocytes % (A) 22.8 %; MCHC 32.8 g/dL (32.0-37.0); MCV 82.5 FL (80.0-97.0); Mean Platelet Volume 9.6 FL (9.5-12.2); Monocytes % (A) 4.9 %; NRBC Per 100 WBC 0 X 10*3/uL (0.00-0.01); Neutrophils # (A) 9.67 X 10*3/uL (1.80-7.70); Neutrophils % (A) 67.7 %; Platelet Count 374 X 10*3/uL (140-440); RBC 5.03 X 10*6/uL (4.10-5.20); RDW 15.1 % (11.5-14.5); WBC 14.27 X 10*3/uL (4.50-10.00)
[2023-12-28 12:19] LABS: Erythrocyte Sedimentation Rate 33 mm/Hr (0-20)
[2023-12-28 16:25] LABS: ALT 28 U/L (8-44); AST 26 U/L (13-35); Albumin 4.3 g/dL (3.8-4.9); Albumin/Globulin Ratio 1.34 Ratio (1.60-3.17); Alkaline Phosphatase 57 U/L (41-126); BUN/Creat Ratio 20.11 Ratio (12.00-20.00); Blood Urea Nitrogen 18.1 mg/dL (9.0-27.0); Calcium 9.5 mg/dL (8.7-10.3); Carbon Dioxide 26.3 mmol/L (21.6-31.8); Chloride 102 mmol/L (96-109); Chol/HDL Ratio 4.06 Ratio; Globulin 3.2 g/dL (1.6-3.3); Glucose 79 mg/dL (70-110); LDL Cholesterol,Calculated 167.2 mg/dL (0.0-131.0); Potassium 4.3 mmol/L (3.5-5.5); Rheumatoid Factor, Qnt <15 IU/mL (0-15); Sodium 142 mmol/L (135-145); T4, Free (Free Thyroxine) 0.84 ng/dL (0.80-1.80); Total Bilirubin 0.3 mg/dL (0.3-1.2); Total Protein 7.5 g/dL (6.2-8.2)
[2023-12-28 20:43] LABS: Cyclic Citrull Pep IgG Unit 3.6 U/mL (<=3.9); Cyclic Citrullinated Pep IgG Negative (Negative)
--- NOTE | 2023-12-28 22:31 | XR ---
EXAMINATION TYPE: XR wrist complete BILATERAL DATE OF EXAM: 12/28/2023 COMPARISON: NONE HISTORY: 43-year-old female pain in both wrists, left greater than right TECHNIQUE: 4 views each side FINDINGS: On the left, there is interosseous ganglion cyst versus interosseous lipoma within the scaphoid measu ring up to 7 x 3 mm. Minimal degenerative spurring first CMC joint on both sides. Bilaterally, the ra diocarpal and distal radioulnar joints as well as the midcarpal compartment are intact. No acute frac ture, subluxation, dislocation seen. IMPRESSION: 1. Mild early osteoarthritic change at the base of the thumb on both sides. 2. An incidental 7 x 3 mm interosseous ganglion cyst versus interosseous lipoma of the left scaphoid waist. 3. No acute osseous abnormality seen.
--- NOTE | 2023-12-28 22:37 | XR ---
EXAMINATION TYPE: XR cervical spine 3 views limited DATE OF EXAM: 12/28/2023 Comparison: None Clinical History: 43-year-old female upper back pain, Z00.00 Findings: Mild uncovertebral joint arthropathy mid cervical spine. Corresponding mild degenerative disc disease and endplate spondylosis mid cervical spine. Straightening of the normal cervical lordosis. No prede ntal space widening or prevertebral soft tissue swelling. Alignment is maintained. Normal odontoid vi ew. Impression: Straightening of the normal cervical lordosis could be positional or due to muscle spasm. There is mi ld spondylotic change mid cervical spine especially C4-C6 levels.
== END | disposition home or self-care (01) ==
LOC: LABWHC1 07:35
PROVIDERS: ATTEND Family Medicine
DX: M54.12 Radiculopathy, cervical region (principal); M25.539 Pain in unspecified wrist
CPT/HCPCS: 36415; 72040; 80053; 80061; 82306; 84439; 84443; 85025; 85652; 86038; 86140; 86200; 86431

== ENCOUNTER 2024-01-11 08:39 | Day surgery (SDC) | payer MEDICAID ==
[2024-01-08 09:25] VITALS: BMI 37.5
[2024-01-11 10:00] VITALS: TEMP 97.6
[2024-01-11] MEDS ORDERED: IOPAMIDOL M200 10 ML VIAL ONE (10:12)
[2024-01-11] MEDS ORDERED: methylPREDNISolone ACETATE 80 MG/ML 1 ML VIAL ONE (10:12)
--- NOTE | 2024-01-11 10:18 | P.PCN ---
Date of Procedure: 01/11/24 Procedure(s) Performed: PREOPERATIVE DIAGNOSIS: 1- Lumbar Degenerative Disc Diseases 2-Lumbar spondylosis with Facet arthropathy without myelopathy. POSTOPERATIVE DIAGNOSIS: 1-lumbar degenerative disc disease. 2-lumbar spondylosis with facet arthropathy without myelopathy. PROCEDURE 1. Lumbar epidural steroid injection under fluoroscopic guidance at the L5-S1 level. (Fluoroscopy imaging was available in radiology department) 2. Lumbar epidurogram. ANESTHESIA: Lidocaine 1% 3 and then only. EBL: Minimal PROCEDURE INDICATION: The patient with low back pain and radiculitis symptoms unresponsive to conservative treatment. Fluoroscopy was used to optimize visualization of the needle placement and to maximize safety. PROCEDURE DESCRIPTION / TECHNIQUE: The patient was seen and identified in the preoperative area. Risks, benefits, complications including but not limited to infections ,bleeding ,allergic reaction to the medications ,nerve damage and not complete pain releife , and alternatives were discussed with the patient. The patient agreed to proceed with the procedure and signed the consent. IV was started, and vital signs were stable. Patient was taken to the OR and time out was completed. The patient was placed in the prone position on procedure table and a pillow was placed under the abdomen to reduce lumbar lordosis. The lumbosacral area was prepped and draped in the usual sterile fashion.ere closely monitored during the procedure. Vital signs was monitered during the entire procedure. Using anterior-posterior fluoroscopy, the L5-S1 interlaminar space was identified and the skin over this site was marked and then infiltrated with 1% lidocaine subcutaneously. Subsequently, a 20-gauge Tuohy epidural needle was inserted and advanced toward the epidural space using the ``Loss of resistance technique and guided by AP and lateral fluoroscopy. The correct needle position in the epidural space was verified with the injection of 2 mL of the water soluble contrast dye Isovue 200 contrast and observing an excellent epidurogram with the epidural spread of the dye, after negative aspiration for blood and CSF and in the absence of paresthesias. Again after negative aspiration, a 6 ml mixture containing 80 mg of Depo-medrol ( Preservetive Free ), and 2 ml of preservative free Normal Saline, and 2 ml of preservative free lidocaine 1% solution was injected and a washout of epidurogram was seen. Needle was withdrawn intact, skin was cleansed, and bandages were applied. COMPLICATIONS: None DISPOSITION / PLANS: The patient was placed in a supine position and transferred to the recovery area in a stable condition for observation. There was no evidence of lower extremity motor or sensory deficit after the procedure. Patient was discharged from the recovery room after meeting discharge criteria. Home discharge instructions were given to the patient by the staff. The patient was reexamined prior to discharge. The patient will schedule a follow up in the clinic in 2-4 weeks.
[2024-01-11 11:09] VITALS: BP 120/83; PULSE 98; RESP 20
--- NOTE | 2024-01-11 14:45 | FL ---
EXAMINATION TYPE: FL guided pain mgmt statistic DATE OF EXAM: 01/11/2024 FLUOROSCOPY Fluoroscopy time of 1.8 seconds was used during lumbar epidural steroid injection. 1 image/s documen t/s the procedure. DAP: 0.51788 mGycm2.
== END 2024-01-11 10:51 | disposition home or self-care (01) ==
LOC: ORPAIN 08:39
PROVIDERS: ATTEND Specialist
DX: M51.16 Intervertebral disc disorders with radiculopathy, lumbar region (principal); M47.26 Other spondylosis with radiculopathy, lumbar region; Z88.0 Allergy status to penicillin; Z88.1 Allergy status to other antibiotic agents
CPT/HCPCS: 81025; 62323; J1040; Q9966

== ENCOUNTER 2024-02-03 04:37 | Emergency (ER) | payer MEDICAID ==
[2024-02-03] MEDS: KETOROLAC 15 MG/ML 1 ML VIAL IM STA (05:07)
[2024-02-03] MEDS: ORPHENADRINE 30 MG/ML 2 ML VIAL IM STA (05:07)
[2024-02-03] MEDS: predniSONE 20 MG TAB PO STA (05:08)
[2024-02-03 05:24] VITALS: RESP 18
[2024-02-03] MEDS: HYDROmorphone 1 MG/ML 1 ML SYRINGE IM STA (06:01)
--- NOTE | 2024-02-03 06:33 | ED ---
Extremity Problem HPI - General Chief complaint: Extremity Problem,Nontraumatic Stated complaint: Left side neck and shoulder pain, Right Hip Pain Time Seen by Provider: 02/03/24 05:01 Source: patient Mode of arrival: ambulatory Limitations: no limitations - History of Present Illness Initial comments: This patient is a 43-year-old woman who presents to have evaluation of pain from the neck/shoulder to the left arm. She states the symptoms have been going on for nearly a couple of weeks. She denies having fall injury. She has tried [id number] medications and is not having significant relief. The patient denies weakness or numbness of the extremity. No neck stiffness. No fevers. No chest symptoms or dyspnea. MD Complaint: extremity pain Onset/Timin -: week(s) Location: left, upper extremity History of Same: Yes Radiation: distal Quality: burning, aching Consistency: constant Improves with: nothing Worsens with: other (Position) Associated Symptoms: denies other symptoms - Related Data Home Medications Medication Instructions Recorded Confirmed modafiniL [Provigil] 200 mg PO DAILY 10/03/22 02/05/24 Alpha Lipoic Acid 600 mg PO DAILY 05/12/23 02/05/24 Ascorbic Acid [Vitamin C] 2,000 mg PO DAILY 05/12/23 02/05/24 Calcium Carbonate [Calcium] 1,200 mg PO DAILY 05/12/23 02/05/24 Cholecalciferol [Vitamin D3 (25 50 mcg PO DAILY 05/12/23 02/05/24 Mcg = 1000 Iu)] Ferrous Sulfate [Iron (65 MG 325 mg PO DAILY 05/12/23 02/05/24 Elemental)] S-Adenosylmethionine Sul Tosyl 400 mg PO DAILY 05/12/23 02/05/24 [Yuri-E] Turmeric Root Extract [Turmeric] 500 mg PO DAILY 05/12/23 02/05/24 Amitriptyline HCl [Elavil] 25 mg PO Q12HR 01/08/24 02/05/24 Gabapentin 300 mg PO HS 01/08/24 02/05/24 Gabapentin 600 mg PO QAM 01/08/24 02/05/24 Sertraline [Zoloft] 100 mg PO DAILY 01/08/24 02/05/24 lisinopriL [Zestril] 10 mg PO DAILY 01/11/24 02/05/24 Previous Rx's Medication Instructions Recorded Montelukast Sodium [Singulair] 10 mg PO HS 30 Days tab 08/27/21 buPROPion XL [Wellbutrin XL] 300 mg PO DAILY 30 Days #30 tab 10/06/23 methocarbamoL [Robaxin-750] 750 mg PO QID #30 tab 02/03/24 predniSONE [Deltasone] 20 mg PO BID #8 tab 02/03/24 Allergies Allergy/AdvReac Type Severity Reaction Status Date / Time Penicillins Allergy Rash/Hives Verified 02/05/24 09:59 clindamycin AdvReac Nausea & Verified 02/05/24 09:59 Vomiting Review of Systems ROS Statement: Those systems with pertinent positive or pertinent negative responses have been documented in the HPI. ROS Other: All systems not noted in ROS Statement are negative. Constitutional: Denies: fever, chills, weakness Respiratory: Denies: cough, dyspnea Cardiovascular: Denies: chest pain, palpitations, syncope Gastrointestinal: Denies: abdominal pain, nausea, vomiting Genitourinary: Denies: dysuria, hematuria Musculoskeletal: Reports: as per HPI. Denies: back pain Skin: Denies: rash Neurological: Reports: paresthesias. Denies: headache, weakness, numbness Past Medical History Past Medical History: No Reported History Additional Past Medical History / Comment(s): anxiety, History of Any Multi-Drug Resistant Organisms: None Reported Past Surgical History: No Surgical Hx Reported Additional Past Surgical History / Comment(s): carpal tunnel, PAIN CLINIC Past Anesthesia/Blood Transfusion Reactions: No Reported Reaction Additional Past Anesthesia/Blood Transfusion Reaction / Comment(s): wakes up slow from anesthesia Past Psychological History: Anxiety, Depression Smoking Status: Never smoker Past Alcohol Use History: Rare Past Drug Use History: None Reported - Past Family History Mother Family Medical History: No Reported History General Exam Limitations: no limitations General appearance: alert, in no apparent distress Head exam: Present: atraumatic, normocephalic Eye exam: Present: normal appearance. Absent: scleral icterus, conjunctival injection Neck exam: Present: normal inspection, full ROM. Absent: tenderness, meningismus Respiratory exam: Present: normal lung sounds bilaterally. Absent: respiratory distress, wheezes, rales, rhonchi, stridor Cardiovascular Exam: Present: regular rate, normal rhythm, normal heart sounds. Absent: systolic murmur, diastolic murmur, rubs, gallop GI/Abdominal exam: Present: soft. Absent: tenderness Extremities exam: Present: normal inspection, normal capillary refill Neurological exam: Present: alert. Absent: motor sensory deficit Skin exam: Present: warm, dry, intact, normal color. Absent: rash Course Vital Signs 02/03/24 02/03/24 02/03/24 04:40 06:08 06:46 Temperature 97.4 F L 97.8 F 97.6 F Pulse Rate 105 H 92 90 Respiratory 18 22 18 Rate Blood Pressure 141/80 105/71 O2 Sat by Pulse 100 96 Oximetry Medical Decision Making - Medical Decision Making Was pt. sent in by a medical professional or institution (, PA, TRIMMING ASSEMBLER, urgent care, hospital, or senior care...) When possible be specific @ -[No] Did you speak to anyone other than the patient for history (EMS, parent, family, police, friend...)? What history was obtained from this source @ -[No] Did you review nursing and triage notes (agree or disagree)? Why? @ -[I reviewed and agree with nursing and triage notes] Were old charts reviewed (outside hosp., previous admission, EMS record, old EKG, old radiological studies, urgent care reports/EKG's, senior care records)? Report findings @ -[No old charts were reviewed] Differential Diagnosis (chest pain, altered mental status, abdominal pain women, abdominal pain men, vaginal bleeding, weakness, fever, dyspnea, syncope, h eadache, dizziness, GI bleed, back pain, seizure, CVA, palpatations, mental health, musculoskeletal)? @ -[Differential Back Pain: Strain, zoster, , vertebral osteomyelitis, discitis, fracture, subluxation, disc herniation, DJD, spinal stenosis, this is not meant to be an all-inclusive list. EKG interpreted by me (3pts min.). @ -[As above] X-rays interpreted by me (1pt min.). @ -[None done] CT interpreted by me (1pt min.). @ -[None done] U/S interpreted by me (1pt. min.). @ -[None done] What testing was considered but not performed or refused? (CT, X-rays, U/S, labs)? Why? @ -[None] What meds were considered but not given or refused? Why? @ -[None] Did you discuss the management of the patient with other professionals (professionals i.e. , PA, TRIMMING ASSEMBLER, lab, RT, psych nurse, social staff worker, validation technician, teacher, custom protection officer, showcase maker)? Give summary @ -[No] Was smoking cessation discussed for >3mins.? @ -[No] Was critical care preformed (if so, how long)? @ -[No] Were there social determinants of health that impacted care today? How? (Homelessness, low income, unemployed, alcoholism, drug addiction, transportation, low edu. Level, literacy, decrease access to med. care, long-term, rehab)? @ -[No] Was there de-escalation of care discussed even if they declined (Discuss DNR or withdrawal of care, Hospice)? DNR status @ -[No] What co-morbidities impacted this encounter? (DM, HTN, Smoking, COPD, CAD, Cancer, CVA, ARF, Chemo, Hep., AIDS, mental health diagnosis, sleep apnea, morbid obesity)? @ -[None] Was patient admitted / discharged? Hospital course, mention meds given and route, prescriptions, significant lab abnormalities, going to OR and other pertinent info. @ -[Patient is 43-year-old woman presenting with cervical radiculopathy symptoms. The patient did not have recent trauma and there are no concerning exam findings. Discussed with patient that we will begin treatment and she should have cervical MRI if the symptoms are not relieved or if there is any wo rsening. We discussed return parameters as well. Undiagnosed new problem with uncertain prognosis? @ -[No] Drug Therapy requiring intensive monitoring for toxicity (Heparin, Nitro, Insulin, Cardizem)? @ -[No] Were any procedures done? @ -[No] Diagnosis/symptom? @ -Acute cervical radiculopathy Acute, or Chronic, or Acute on Chronic? @ -[Acute Uncomplicated (without systemic symptoms) or Complicated (systemic symptoms)? @ -[Uncomplicated Side effects of treatment? @ -[No] Exacerbation, Progression, or Severe Exacerbation? @ -[No] Poses a threat to life or bodily function? How? (Chest pain, [place], [place], pneumonia, PE, COPD, DKA, ARF, appy, cholecystitis, CVA, Diverticulitis, Homicidal, Suicidal, threat to staff... and all critical care pts) @ -[No] Disposition Clinical Impression: Cervical radiculopathy Disposition: HOME SELF-CARE Condition: Good Instructions (If sedation given, give patient instructions): Cervical Radiculopathy (ED) Prescriptions: predniSONE [Deltasone] 20 mg PO BID #8 tab methocarbamoL [Robaxin-750] 750 mg PO QID #30 tab Is patient prescribed a controlled substance at d/c from ED?: Yes When asked, does pt state using other controlled substances?: No If prescribed controlled substance>3 days was MAPS reviewed?: Prescribed <3 Days If opioid is for acute pain is fill amount 7 days or less?: Yes If Rx opioid, was Start Talking consent form obtained?: Yes Referrals: Meir Aviles MD [Primary Care Provider] - 1-2 days Luan Day DO [Doctor of Osteopathic Medicine] - 1-2 days
[2024-02-03 06:47] VITALS: PULSE 90; TEMP 97.6
[2024-02-03 06:48] VITALS: BP 105/71
== END 2024-02-03 06:46 | disposition home or self-care (01) ==
LOC: EC 04:37
DX: M54.12 Radiculopathy, cervical region (principal); Z88.0 Allergy status to penicillin; Z88.1 Allergy status to other antibiotic agents
CPT/HCPCS: 99283; 96372 ×3; J2360; J1170; J1885; J7512

== ENCOUNTER → 2024-02-05 | Outpatient (CLI) | payer MEDICAID ==
[2024-02-05 10:09] VITALS: BP 125/85; PULSE 103; RESP 16; TEMP 97.1
--- NOTE | 2024-02-05 10:21 | P.PAINPG ---
Subjective Progress Note Date: 02/05/24 Principal diagnosis: neck pain, radiating to left upper extremity, and lumbar back pain radiating to right lower extremity Ms. Amaro is a 43 -year-old pleasant female came to the [facility] pain clinic for neck pain, lumbar back pain . Patient has ongoing pain for many yearslumbar back pain, recent onset neck pain. on 02/03/2024 she went to the emergency department for her neck pain she received muscle relaxant, and next x- rays shows degenerative changes, and Medrol Dosepak. Patient describes pain is aching, throbbing, constant type of pain. Pain is radiating toleft upper extremity causing numbness tingling sensation. She is also complaining lumbar back pain and pain radiating to the right lower extremity causing numbness tingling sensation. She had L5-S1 epidural steroid injection multiple times which helped more than 70% pain relief for up to 4 weeks duration.. Patient rated pain levels are 6 out of 10 in severity out of 10 in severity. With the help of medications pain levels are 3-4 out of 10 in severity. Activities makin g pain worse. Medications, resting, stretching exercises helping in relieving patient's pain. Patient pain some days better than others. Overall activities decreased secondary to pain. Because of the pain sometimes patient is feeling lack of sleep, interest, and energy. Denied any side effects with the medications. Denied any bowel or bladder problems at this time. Patient is not using any walking aids for walking support. Patient denies any suicidal or homicidal ideations intent or plan. Patient denies any auditory or visual hallucinations. Patient denied any red flag symptoms related to pain. 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 Sensation grossly intact Lower extremity: Normal strength, and decreased range of motion secondary to pain Lumbar spine: Paravertebral tenderness: positive Lumbar facet load test : positive Sacroiliac joint tenderness: Positive on right side Thigh thrust test: Positive on right side SI joint compression test: Positive on right side Fabere test: Positive on right side Cervical spine: Paravertebral tenderness: Positive, multiple trigger point positive over left side trapezius muscle. Cervical spine facet giovana: Positive Cervical spine Spurling test: negative - Constitutional Constitutional Comment(s): 13 point review of symptoms negative except as mentioned in the history of present illness. Assessment and Plan Assessment: left side cervical radiculopathy Cervical, and lumbar myofascial pain syndrome Lumbar spondylosis without myelopathy right side Lumbar radiculopathy Plan: #1 Diagnoses, prognosis, and multiple treatment options including but not limited to physical therapy, interventional therapy, adjunct medication therapy, narcotic medication, and surgical options were discussed with the patient. And all questions were answered to the patient's satisfaction. #2 treatment plan agreement : Patient was thoroughly discussed regarding the treatment options, alternatives, and importance of exercises as tolerated. Patient clearly understood. #3 Patient was counseled on importance of regular exercise. Including pavithra chi, aerobic exercises as tolerated. Which helps for chronic pain, and overall well- being. Patient also counseled regarding importance of weight control rolling chronic pain, and overall other health issues. By altering diet habits, minimizing sugar intake, and processed foods helps in minimizing Inflammation. Also discussed with the patient regarding intermittent fasting. #4 investigations: MAPS- reviewed , urine drug test-not done #5 diagnostic tests: MRI of the cervical spine without contrast, if physical therapy not helpful after 4 weeks duration #6 consultation :physical therapy consultation evaluation for her cervical, and lumbar back pain 3 times per week for 4-6 weeks duration # 7 interventional procedures: cervical epidural steroid injection after conservative therapy not helpful if needed. Procedure, complications, alternatives discussed with the patient. #8 medications #1continue Robaxine 750 mg by mouth every 6 hours as needed #2 continue prednisone 20 mg every 12 hours from the ER physician directions #3 Motrin 800 mg by mouth every 8 hours as needed, recommended to drink plenty of water to minimize kidney insult Medication side effects, complications, long-term consequences discussed with the patient. Patient recommended to contact the pain clinic if noticed any issues with given medications. #9 morphine milligrams equivalents dose ( MME) per day: 0 from the pain clinic # 10 TENS unit's, and percussion massage device #11 disposition: scheduled to follow up with pain clinic in 8 weeks duration. Time with Patient: Less than 30 PQRS Measure Charge Sheet Measure #130: Documentation of Current Meds in Medical Chart: Patient's medications documented in chart Measure #226: Tobacco Use: Screen & Cessation Intervention: Pt not a tobacco user Measure #111: Pneumonia Vaccination: Pneumococcal vaccine NOT administered or previously given Measure #47: Advance Care Plan: Advance care planning discussed & documented, plan or surrogate given Measure #412: Opioid Treatment Agreement: No documentation of signed opioid delmy tment agreement Measure #408: Opioid Therapy Follow-up Evaluation: Patient had NO f/u eval minimum every 3 months during opioid therapy Measure #317: Preventitive Care & Scrn High Bld Press & F/U: Normal blood pressure, f/u not required Measure #128: Body Mass Index (BMI) Screening & Follow-up: BMI documented ABOVE normal parameters - f/u documented Measure #131: Pain Assessment & Follow-up: Pain positive & plan documented Measure #431: Unhealthy Alcohol Use Preventative Care & Scrn: Patient not identified as an unhealthy alcohol user Mode of Arrival: Ambulatory - Pain Location Bilateral Lower Back Non-Pharmacological Interventions: Heat, Ice, Inactivity, Sitting Pharmacological Interventions: Epidural, PRN Medication, Topical Medication PQRS Narrative: Smoking Status Never smoker Blood Pressure 125/85 Pain Intensity [Bilateral 4 Lower Back] Scale Used Numeric (1 - 10) Hx Alcohol Use (MH) Yes Home Medications: Ambulatory Orders Montelukast Sodium [Singulair] 10 mg PO HS 30 Days tab 08/27/21 modafiniL [Provigil] 200 mg PO DAILY 10/03/22 Alpha Lipoic Acid 600 mg PO DAILY 05/12/23 Ascorbic Acid [Vitamin C] 2,000 mg PO DAILY 05/12/23 Calcium Carbonate [Calcium] 1,200 mg PO DAILY 05/12/23 Cholecalciferol [Vitamin D3 (25 Mcg = 1000 Iu)] 50 mcg PO DAILY 05/12/23 Ferrous Sulfate [Iron (65 MG Elemental)] 325 mg PO DAILY 05/12/23 S-Adenosylmethionine Sul Tosyl [Yuri-E] 400 mg PO DAILY 05/12/23 Turmeric Root Extract [Turmeric] 500 mg PO DAILY 05/12/23 buPROPion XL [Wellbutrin XL] 300 mg PO DAILY 30 Days #30 tab 10/06/23 Amitriptyline HCl [Elavil] 25 mg PO Q12HR 01/08/24 Gabapentin 300 mg PO HS 01/08/24 Gabapentin 600 mg PO QAM 01/08/24 Sertraline [Zoloft] 100 mg PO DAILY 01/08/24 lisinopriL [Zestril] 10 mg PO DAILY 01/11/24 methocarbamoL [Robaxin-750] 750 mg PO QID #30 tab 02/03/24 predniSONE [Deltasone] 20 mg PO BID #8 tab 02/03/24 Controlled Substance Measures - Controlled Substance Measures Is patient prescribed a controlled substance at discharge?: No
== END ==
LOC: PNWHC3 09:48
PROVIDERS: ATTEND Anesthesiology
DX: M47.26 Other spondylosis with radiculopathy, lumbar region (principal); M79.18 Myalgia, other site; Z88.0 Allergy status to penicillin; Z88.1 Allergy status to other antibiotic agents
CPT/HCPCS: 99211

== ENCOUNTER → 2024-02-07 | Outpatient (CLI) | payer MEDICAID ==
--- NOTE | 2024-02-07 20:01 | MR ---
EXAMINATION TYPE: MR cervical spine wo con DATE OF EXAM: 02/07/2024 7:42 PM CLINICAL INDICATION:Female, 43 years old with history of M54.12; PHH, Neck pain that radiates down le ft arm for 1 month COMPARISON: Plain film 12/28/2023. TECHNIQUE: Multi planar, multi sequence imaging was performed utilizing: T1-weighted, T2-weighted, an d turbo inversion recovery imaging of the cervical spine. IV Contrast: cc (none if empty) FINDINGS: Alignment: The cervical vertebral bodies have preserved heights. Alignment is within normal limits gi wing patient positioning. Bones: Osteophytes and disc space narrowing most pronounced at the C5-C6 vertebral levels. Cord: The spinal cord is unremarkable with regards to their signal intensity and morphology. Discs: Intervertebral disc signal is maintained. C2-C3: No significant disc pathology. The spinal canal is patent. No neural foraminal stenosis. C3-C4: No significant disc pathology. The spinal canal is patent. No neural foraminal stenosis. C4-C5: No significant disc pathology. The spinal canal is patent. No neural foraminal stenosis. C5-C6: No significant disc pathology. The spinal canal is patent. Bilateral facet and uncovertebral joint arthropathy are present with mild right neural foraminal stenosis. The left neural foramen is p atent. C6-C7: A disc osteophyte complex is present with mild spinal canal stenosis. Bilateral facet and unc overtebral joint arthropathy are present with mild to moderate bilateral neural foraminal stenosis. C7-T1: No significant disc pathology. The spinal canal is patent. No neural foraminal stenosis. Other: None. IMPRESSION: 1. No evidence for disc herniation or significant spinal canal stenosis. 2. Multilevel disc degeneration with associated osteoarthritic changes worse at C5-C6.
== END | disposition home or self-care (01) ==
LOC: RADMRIMAIN 19:08
DX: M50.322 Other cervical disc degeneration at C5-C6 level (principal); M54.12 Radiculopathy, cervical region
CPT/HCPCS: 72141

== ENCOUNTER → 2024-04-01 | Outpatient (CLI) | payer MEDICAID ==
[2024-04-01 13:29] VITALS: BP 125/83; PULSE 116; RESP 16
--- NOTE | 2024-04-01 14:42 | P.PAINPG ---
PQRS Measure Charge Sheet Comment: HISTORY OF PRESENT ILLNESS: A 43 yr old female presents today w severe and chronic neck pain > 3 mo, LBP x 6 yrs secondary to DDD, spondylosis and facet arthropathy without myelopathy for evaluation. Pt states pain level is provoked at 8 /10 in intensity, constant, localized in the cervical spine, predominantly axial, sharp in character w occasional shooting pain towards the RUE. Pain is provoked by standing from a sitting position. Pain is alleviated by chiropractic treatments years ago, PT x 6wks in which she is currently in, medications, heat, ice, repositioning and rest. Cervical disabiity score of 14. Interventional procedures include COLTEN L5-S1 x2 Medications include Tramadol, Ibu REVIEW OF ORGAN SYSTEMS: CONSTITUTIONAL: No fevers or chills. No recent weight loss. NEUROLOGICAL: + numbness and tingling along the distal extremities. No seizure disorders or headaches. MUSCULOSKELETAL: + pain PSYCHIATRIC: Denies current depression or suicidal thoughts. Physical Examinations : Constitutional : Cooperative , not in acute distress . Neurologic : Cranial nerve II to XII intact. No focal neurological deficits. Psychiatric : alert & oriented x 3. Matching mood & appropriate affect. Judgment & insight intact. Musculoskeletal : Cervical Spine Motor strength in the deltoid and biceps: Normal right side. Normal Left side Motor strength biceps and the wrist extensors: Normal right side . Normal left side Motor strength in the triceps muscle: Normal right side. Normal left side Deep tendon reflexes: Normal at the biceps. Normal at Brachioradialis. Normal at triceps Vertebral body tenderness to deep palpation over C6 Cervical facet loading test: positive bilaterally Spurling test: positive R C6-7 Neck distraction test: positive bilaterally Samantha sign: positive bilaterally Lumbar spine Motor strength lower extremities ,thigh and legs 5/5 Right side , 5/5 Left side Deep tendon reflexes : Normal Knee Jerk. Normal Ankle Jerk Vertebral body tenderness over L5 Cespedes Test positive Lumbar facet Loading Test: positive Right / positive Left Range of motion of the lumbar spine Flexion 30 degrees, extension 10 degrees Straight Leg Raise test: Left/ Right positive at <35 degrees Olga test: positive right / positive left. Severe tenderness over the Sacroiliac joint on the Right / Left sides Gaenslen test: positive bilaterally Seated flexion test: positive bilaterally. Sacral spine : Severe tenderness over the Sacroiliac joint: right side / left side Range of motion: Flexion of the lumbar spine <60 degrees Range of motion: Extension of the lumbar spine <20 degrees Gaenslen's Test positive Rico's Test positive Olga test: positive right side / left side Thigh Thrust Test Sacral Thrust Test Imaging: MRI non contrast of the lumbar spine from 03/11/23 reviewed MRI non contrast of the cervical spine from 02/07/24 reviewed Assessment/ Plan : Lumbar spondylosis, Cervical DDD Rec ommendation of COLTEN C6-C7 #1. May need a series of injections for optimal pain relief. Risk, benefits of procedure discussed and patient verbalized understanding. Protocol for discontinuation/continuation of medication surrounding procedure discussed. All questions answered. I have spent greater than 30 minutes on patient care today. Dr Logan was available by phone for the evaluation of this patient. The time was used to review the medical records including relevant urine studies and Prescription history (MAPs), review of the available imaging, evaluation and examination of the patient, coordination of care with the medical staff and if applicable referring physicians, as well as creation of the medical record PQRS Narrative: Smoking Status Never smoker Hx Alcohol Use (MH) Yes Home Medications: Ambulatory Orders Montelukast Sodium [Singulair] 10 mg PO HS 30 Days tab 08/27/21 modafiniL [Provigil] 200 mg PO DAILY 10/03/22 Alpha Lipoic Acid 600 mg PO DAILY 05/12/23 Ascorbic Acid [Vitamin C] 2,000 mg PO DAILY 05/12/23 Calcium Carbonate [Calcium] 1,200 mg PO DAILY 05/12/23 Cholecalciferol [Vitamin D3 (25 Mcg = 1000 Iu)] 50 mcg PO DAILY 05/12/23 Ferrous Sulfate [Iron (65 MG Elemental)] 325 mg PO DAILY 05/12/23 S-Adenosylmethionine Sul Tosyl [Yuri-E] 400 mg PO DAILY 05/12/23 Turmeric Root Extract [Turmeric] 500 mg PO DAILY 05/12/23 buPROPion XL [Wellbutrin XL] 300 mg PO DAILY 30 Days #30 tab 10/06/23 Amitriptyline HCl [Elavil] 25 mg PO Q12HR 01/08/24 Gabapentin 300 mg PO HS 01/08/24 Gabapentin 600 mg PO QAM 01/08/24 Sertraline [Zoloft] 100 mg PO DAILY 01/08/24 lisinopriL [Zestril] 10 mg PO DAILY 01/11/24 methocarbamoL [Robaxin-750] 750 mg PO QID #30 tab 02/03/24 predniSONE [Deltasone] 20 mg PO BID #8 tab 02/03/24 Controlled Substance Measures - Controlled Substance Measures Is patient prescribed a controlled substance at discharge?: No
== END ==
LOC: PNWHC3 10:14
PROVIDERS: ATTEND Specialist
DX: M50.323 Other cervical disc degeneration at C6-C7 level (principal); M47.812 Spondylosis without myelopathy or radiculopathy, cervical region; M47.816 Spondylosis without myelopathy or radiculopathy, lumbar region; Z88.0 Allergy status to penicillin; Z88.1 Allergy status to other antibiotic agents
CPT/HCPCS: 99211

== ENCOUNTER 2024-04-11 06:49 | Day surgery (SDC) | payer MEDICAID ==
[2024-04-11 07:10] VITALS: RESP 16; TEMP 97.1
[2024-04-11] MEDS ORDERED: LACTATED RINGERS 1,000 ML IV SCH (07:17)
[2024-04-11] MEDS ORDERED: IOPAMIDOL M200 10 ML VIAL ONE (07:34)
[2024-04-11] MEDS ORDERED: DEXAMETHASONE SOD PHOSPHATE 10 MG/ML 1 ML VIAL ONE (07:34)
--- NOTE | 2024-04-11 07:42 | P.PCN ---
Date of Procedure: 04/11/24 Procedure(s) Performed: . PROCEDURE 1. Cervical epidural steroid injection under fluoroscopic guidance, C6-7 (fluoroscopy images available in the radiology department ) 2. Cervical epidurogram. PREOPERATIVE DIAGNOSIS: 1- Cervical Degenerative Disc Diseases 2- Cervical radiculopathy. POSTOPERATIVE DIAGNOSIS: : 1- Cervical Degenerative Disc Diseases , 2- Cervical radiculopathy. ANESTHESIA: Local anesthesia with lidocaine 1% 3 ml only EBL 0 PROCEDURE INDICATION: The patient with neck pain and radiculitis unresponsive to conservative treatment consents for procedure. PROCEDURE DESCRIPTION / TECHNIQUE: The patient was seen and identified in the preoperative area. Risks, benefits, complications, including but not limited to infections ,bleeding , allergic reactions to the medications ,and not complete pain releife, and alternatives were discussed with the patient, the patient agreed to proceed with the procedure and signed the consent. Patient was taken to the OR and time out was completed. The patient was placed in the prone position on the procedure table. A pillow was placed under the patients chest to increase the cervical interlaminar space. The cervical area was prepped and draped in the usual sterile fashion. Vital signs were closely monitored during the procedure. Using anterior-posterior fluoroscopy, the C6-7 interlaminar space was identified and the skin over this site was marked and then infiltrated with 1% lidocaine subcutaneously. Subsequently, a 20-gauge 3-1/2-inch Tuohy epidural needle was inserted and advanced toward the epidural space by means of the ``hanging-drop technique and guided by AP and lateral fluoroscopy. The correct needle position in the epidural space was verified with the injection of 2 mL of the water soluble contrast dye [id number]-200 and observing an excellent epidurogram with the epidural spread of the dye, after negative aspiration for blood and CSF and in the absence of paresthesias. then, mixture containing 20 mg Dexamethasone and 2 ml of preservative-free normal saline injected and a washout of epidurogram was seen. Needle was withdrawn intact, skin was cleansed, and bandages were applied. Complications= none. Disposition= patient was placed in supine position and transferred to the recovery room area in stable condition and there was no evidence of upper or lower extremity motor or sensory deficit after the procedure patient was discharged from recovery room after discharge criteria met and home discharge instructions was given by the staff and patient will follow with the pain clinic in 2-4 weeks
[2024-04-11 07:48] VITALS: BP 139/79; PULSE 108
--- NOTE | 2024-04-11 07:59 | FL ---
EXAMINATION TYPE: FL guided pain mgmt statistic DATE OF EXAM: 04/11/2024 HISTORY: Fluoroscopy time Total dose area product (DAP) in uGy*m?, mGy*cm? (or similar): 0.58701 IMPRESSION: 1. Fluoroscopy time.
== END 2024-04-11 08:02 | disposition home or self-care (01) ==
LOC: ORPAIN 06:49
PROVIDERS: ATTEND Specialist
DX: M50.123 Cervical disc disorder at C6-C7 level with radiculopathy (principal); Z88.1 Allergy status to other antibiotic agents; Z88.0 Allergy status to penicillin
CPT/HCPCS: 81025; 62321; J1100; Q9966

== ENCOUNTER → 2024-05-06 | Outpatient (CLI) | payer MEDICAID ==
[2024-05-06 09:09] VITALS: BP 134/85; PULSE 113; RESP 16
--- NOTE | 2024-05-06 15:02 | P.PAINPG ---
PQRS Measure Charge Sheet Comment: HISTORY OF PRESENT ILLNESS: A 43 yr old female presents today w severe and chronic neck pain > 3 mo, LBP x 6 yrs secondary to DDD, spondylosis and facet arthropathy without myelopathy for evaluation s/p COLTEN C6-C7 #1. Pt states she expeirenced 90% pain relief x 3 wks s/p procedure. Pt states pain level is provoked at 6 /10 in intensity, constant, localized in the cervical spine, predominantly axial, sharp in character w occasional shooting pain towards the RUE. Pain is provoked by standing from a sitting position. Pain is alleviated by chiropractic treatments years ago, PT x 6wks in which she is currently in, medications, heat, ice, repositioning and rest. Cervical disability score of 13. Interventional procedures include COLTEN L5-S1 x3, COLTEN C6-C7 x1 Medications include Tramadol, Ibu REVIEW OF ORGAN SYSTEMS: CONSTITUTIONAL: No fevers or chills. No recent weight loss. NEUROLOGICAL: + numbness and tingling along the distal extremities. No seizure disorders or headaches. MUSCULOSKELETAL: + pain PSYCHIATRIC: Denies current depression or suicidal thoughts. Physical Examinations : Constitutional : Cooperative , not in acute distress . Neurologic : Cranial nerve II to XII intact. No focal neurological deficits. Psychiatric : alert & oriented x 3. Matching mood & appropriate affect. Judgment & insight intact. Musculoskeletal : Cervical Spine Motor strength in the deltoid and biceps: Normal right side. Normal Left side Motor strength biceps and the wrist extensors: Normal right side . Normal left side Motor strength in the triceps muscle: Normal right side. Normal left side Deep tendon reflexes: Normal at the biceps. Normal at Brachioradialis. Normal at triceps Vertebral body tenderness to deep palpation over C6 Cervical facet loading test: positive bilaterally Spurling test: positive R C6-7 Neck distraction test: positive bilaterally Samantha sign: positive bilaterally Lumbar spine Motor strength lower extremities ,thigh and legs 5/5 Right side , 5/5 Left side Deep tendon reflexes : Normal Knee Jerk. Normal Ankle Jerk Vertebral body tenderness over L5 Cespedes Test positive Lumbar facet Loading Test: positive Right / positive Left Range of motion of the lumbar spine Flexion 30 degrees, extension 10 degrees Straight Leg Raise test: Left/ Right positive at <35 degrees Olga test: positive right / positive left. Severe tenderness over the Sacroiliac joint on the Right / Left sides Gaenslen test: positive bilaterally Seated flexion test: positive bilaterally. Sacral spine : Severe tenderness over the Sacroiliac joint: right side / left side Range of motion: Flexion of the lumbar spine <60 degrees Range of motion: Extension of the lumbar spine <20 degrees Gaenslen's Test positive Rico's Test positive Olga test: positive right side / left side Thigh Thrust Test Sacral Thrust Test Imaging: MRI non contrast of the lumbar spine from 03/11/23 reviewed MRI non contrast of the cervical spine from 02/07/24 reviewed Assessment/ Plan : Lumbar spondylosis, Cervical DDD Recommendation of follow up w Dr Day to explore additional treatment options. All questions answered. I have spent greater than 30 minutes on patient care today. Dr Logan was available by phone for the evaluation of this patient. The time was used to review the medical records including relevant urine studies and Prescription history (MAPs), review of the available imaging, evaluation and examination of the patient, coordination of care with the medical staff and if applicable referring physicians, as well as creation of the medical record - Pain Location Neck Non-Pharmacological Interventions: Inactivity Pharmacological Interventions: Medication PQRS Narrative: Smoking Status Never smoker Hx Alcohol Use (MH) Yes Home Medications: Ambulatory Orders Montelukast Sodium [Singulair] 10 mg PO HS 30 Days tab 08/27/21 modafiniL [Provigil] 200 mg PO DAILY 10/03/22 Alpha Lipoic Acid 600 mg PO DAILY 05/12/23 Ascorbic Acid [Vitamin C] 2,000 mg PO DAILY 05/12/23 Calcium Carbonate [Calcium] 1,200 mg PO DAILY 05/12/23 Cholecalciferol [Vitamin D3 (25 Mcg = 1000 Iu)] 50 mcg PO DAILY 05/12/23 Ferrous Sulfate [Iron (65 MG Elemental)] 325 mg PO DAILY 05/12/23 S-Adenosylmethionine Sul Tosyl [Yuri-E] 400 mg PO DAILY 05/12/23 Turmeric Root Extract [Turmeric] 500 mg PO DAILY 05/12/23 Amitriptyline HCl [Elavil] 25 mg PO Q12HR 01/08/24 Gabapentin 300 mg PO HS 01/08/24 Gabapentin 600 mg PO QAM 01/08/24 lisinopriL [Zestril] 5 mg PO DAILY 01/11/24 Vilazodone HCl 20 mg PO DAILY 04/10/24 buPROPion XL [Wellbutrin XL] 150 mg PO DAILY 04/10/24 Controlled Substance Measures - Controlled Substance Measures Is patient prescribed a controlled substance at discharge?: No
== END | disposition home or self-care (01) ==
LOC: PNWHC3 08:52
PROVIDERS: ATTEND Specialist
DX: M47.812 Spondylosis without myelopathy or radiculopathy, cervical region (principal); M50.30 Other cervical disc degeneration, unspecified cervical region; M47.816 Spondylosis without myelopathy or radiculopathy, lumbar region; Z88.0 Allergy status to penicillin; Z88.1 Allergy status to other antibiotic agents
CPT/HCPCS: 99211

== ENCOUNTER → 2024-07-10 | Outpatient (CLI) | payer MEDICAID ==
[2024-07-10 15:24] LABS: NT-Pro-B-Type Natriuretic Pept 88 pg/mL (0-125)
[2024-07-10 15:25] LABS: ALT 18 U/L (8-44); AST 19 U/L (13-35); Albumin 4.2 g/dL (3.8-4.9); Alkaline Phosphatase 47 U/L (41-126); BUN/Creat Ratio 15.14 Ratio (12.00-20.00); Blood Urea Nitrogen 10.6 mg/dL (9.0-27.0); Calcium 9.4 mg/dL (8.7-10.3); Chloride 103 mmol/L (96-109); Globulin 2.8 g/dL (1.6-3.3); Glucose 101 mg/dL (70-110); Potassium 4.2 mmol/L (3.5-5.5); Sodium 138 mmol/L (135-145); Total Bilirubin 0.3 mg/dL (0.3-1.2)
== END | disposition home or self-care (01) ==
LOC: LABWHC1 09:48
PROVIDERS: ATTEND Internal Medicine Interventional Cardiology
DX: I42.8 Other cardiomyopathies (principal)
CPT/HCPCS: 36415; 80053; 83880

== ENCOUNTER 2024-07-15 05:41 | Day surgery (SDC) | payer MEDICAID ==
[2024-07-10 13:13] VITALS: BMI 40.6
[2024-07-15] MEDS ORDERED: HEPARIN SODIUM,PORCINE (1 ML) 2,500 UNIT in SODIUM CHLORIDE 0.9% 250 ML IRRIGATION PRN (05:58)
[2024-07-15] MEDS ORDERED: ALPRAZolam 0.25 MG TAB PO PRN (05:58)
[2024-07-15] MEDS ORDERED: ALPRAZolam 0.5 MG TAB PO PRN (05:58)
[2024-07-15] MEDS ORDERED: NITROGLYCERIN SL TABS 0.4 MG TAB SUBLINGUAL PRN (05:58)
[2024-07-15] MEDS ORDERED: HEPARIN SODIUM,PORCINE 10,000 UNIT in SODIUM CHLORIDE 0.9% 1,000 ML IRRIGATION PRN (05:58)
[2024-07-15 06:30] VITALS: RESP 18; TEMP 98.1
[2024-07-15] MEDS: ASPIRIN 325 MG TAB PO ONE (06:33)
[2024-07-15] MEDS: IV FLUID CONTINUATION 1,000 ML IV ONE (06:34)
[2024-07-15] MEDS: SODIUM CHLORIDE 0.9% 1,000 ML in EMPTY BAG 1 BAG IV SCH (06:34)
[2024-07-15 06:39] LABS: Basophils # (A) 0.1 k/uL (0-0.2); Basophils % (A) 1 %; Eosinophils # (A) 0.3 k/uL (0-0.7); Eosinophils % (A) 3 %; HCT 37.5 % (34.0-46.0); HGB 12.1 gm/dL (11.4-16.0); Hypochromasia Slight; Lymphocytes # (A) 2.3 k/uL (1.0-4.8); Lymphocytes % (A) 24 %; MCH 26.9 pg (25.0-35.0); MCHC 32.1 g/dL (31.0-37.0); MCV 83.8 fL (80.0-100.0); Monocytes # (A) 0.4 k/uL (0-1.0); Monocytes % (A) 4 %; Neutrophils # (A) 6.5 k/uL (1.3-7.7); Neutrophils % (A) 67 %; Platelet Count 372 k/uL (150-450); RBC 4.48 m/uL (3.80-5.40); RDW 15.4 % (11.5-15.5); WBC 9.7 k/uL (3.8-10.6)
[2024-07-15 06:49] LABS: African American GFR (CKD) >90 (>60 ml/min/1.73 sqM); Anion Gap 7 mmol/L; Blood Urea Nitrogen 19 mg/dL (7-17); Calcium 9.2 mg/dL (8.4-10.2); Carbon Dioxide 26 mmol/L (22-30); Chloride 106 mmol/L (98-107); Glucose 99 mg/dL (74-99); Non-African American GFR(CKD) >90 (>60 ml/min/1.73 sqM); Potassium 4.4 mmol/L (3.5-5.1); Sodium 139 mmol/L (137-145)
[2024-07-15] MEDS: fentaNYL (PF) 50 MCG/ML 2 ML AMP IVP ONE (07:39)
[2024-07-15] MEDS: LIDOCAINE 1% INJ 10MG/ML (20 ML MDV) SQ ONE (07:42)
[2024-07-15] MEDS: MIDAZOLAM 2 MG/2 ML VIAL IVP ONE (07:43)
[2024-07-15] MEDS: VERAPAMIL SYRINGE (5 MG/10 ML) INTRAARTER ONE (07:50)
[2024-07-15] MEDS: HEPARIN SODIUM 1,000 UN/ML (10ML VL) IVP ONE (07:56)
[2024-07-15] MEDS: IOPAMIDOL-370 100ML BTL INJ ONE ×2 (08:11→08:18)
[2024-07-15] MEDS: HEPARIN SODIUM,PORCINE (1 ML) 2,500 UNIT in SODIUM CHLORIDE 0.9% 250 ML IRRIGATION ONE (08:19)
[2024-07-15] MEDS: HEPARIN SODIUM,PORCINE 10,000 UNIT in SODIUM CHLORIDE 0.9% 1,000 ML IRRIGATION ONE (08:19)
[2024-07-15] MEDS ORDERED: RX INFO: IV CONTRAST WAS GIVEN 1 EACH MISC MISCELLANE PRN (08:38)
[2024-07-15] MEDS ORDERED: SODIUM CHLORIDE 0.9% 1,000 ML IV SCH (08:45)
--- NOTE | 2024-07-15 08:45 | P.CARDCATH ---
Date of Procedure: 07/15/24 Description of Procedure: Cardiac Catheterization: The patient is a 43-year-old female with a history of hypertension who is complaining of exertional chest discomfort, dyspnea and palpitations, found to have evidence of cardiomyopathy on her echo. Recommendations were made regarding cardiac catheterization, the risks and the complications were discussed with the patient who is in full understanding and agreement. Procedure Description: Patient was brought to slab off mill tender in fasting semi-sedated state after receiving Fentanyl and Benadryl achieiving moderate conscious sedated state. Using Xylocaine Anesthesia and modified Seldinger technique, a 6-[place] sheath was introduced in the right radial artery . Subsequently, selective coronary angiography was performed using a 5-[place] 3.5 bend Brian catheter. Multiple views of the coronary artery including hemiaxial views were obtained. Attempt to cannulate the right coronary artery using a 5 [place] 5 bend right Brian were unsuccessful. The 5 [place] pigtail catheter was used to cross the aortic valve and LVEDP was calculated. An PRABHAKAR view of the left ventricle was obtained subsequently an [place] view of the ascending aorta was performed. Following that, catheter and sheath were removed. Hemostasis was obtained with deployment of vascular band . There was no immediate complication. Patient was returned to room in stable condition. Of note, the patient received a total of 5000 units of intravenous heparin as well as intra-arterial verapam il. Findings: Left main: This is a large size vessel, bifurcating into LAD and left circumflex, left main has no obstructive disease LAD: Originating from the left main, there is a diagonal branch but the LAD is not visualized from the left cusp. The LAD is visualized from the right cusp, large in caliber and has no obstructive disease Left circumflex: This is a large codominant vessel giving rise to 3 large obtuse marginal branch and distally to a small PDA. The left circumflex and its branches have no obstructive disease RCA: This vessel could not be visualized selectively but from the aortogram appears to be originating from the right coronary cusp, large in caliber and has no obstructive disease. Left Ventriculogram: Performed in the PRABHAKAR view and revealed mild global hypokinesis, ejection fraction 50 to 55% with no significant mitral regurgitation. Aortogram: The aortic valve is a tricuspid valve. There is no significant aortic regurgitation. Visualization of the origin of the right coronary artery was noted as well as the left anterior descending artery from the right coronary cusp Hemodynamics: There was no gradient across the aortic valve, LVEDP was 14-16 mmHg Conclusion: 1. No evidence of obstructive CAD 2. 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 Left ventricle systolic function borderline normal 4. Normal appearance of the ascending aorta Recommendations: I have recommended to continue medical therapy and to undergo a CT angiogram of the coronary arteries to evaluate the course of her LAD and depending on that further recommendations will be made. The findings and the recommendations were discussed with the patient and the family and they were in full understanding and agreement. Duration of sedation is 39 minutes.
[2024-07-15] MEDS ORDERED: VILAZODONE HCL 20 MG PO SCH (09:00)
[2024-07-15] MEDS ORDERED: METOPROLOL SUCCINATE (ER) 25 MG TAB.ER.24H PO SCH (09:00)
[2024-07-15] MEDS ORDERED: lisinopriL 10 MG TAB PO SCH (09:00)
[2024-07-15 11:44] VITALS: BP 126/64; PULSE 69
== END 2024-07-15 12:05 | disposition home or self-care (01) ==
LOC: CATHCVL 05:41
PROVIDERS: ATTEND Internal Medicine Interventional Cardiology
DX: I42.8 Other cardiomyopathies (principal); I10 Essential (primary) hypertension; F32.A Depression, unspecified; Z88.0 Allergy status to penicillin; Z88.1 Allergy status to other antibiotic agents; Z87.891 Personal history of nicotine dependence; Z79.899 Other long term (current) drug therapy
CPT/HCPCS: 93458; 93567; 80048; 85025; 81025; 99152; 99153; C1769 ×2; C1894; J2250; J1644 ×3; J2001; J3010; Q9967

== ENCOUNTER → 2024-08-19 | Outpatient (CLI) | payer MEDICAID ==
[2024-08-19 11:21] VITALS: BP 124/81; PULSE 116; RESP 16
--- NOTE | 2024-08-19 14:26 | P.PAINPG ---
PQRS Measure Charge Sheet Comment: HISTORY OF PRESENT ILLNESS: A 43 yr old female presents today w severe and chronic neck pain > 3 mo, LBP x 6 yrs secondary to radiculopathy, spondylosis and facet arthropathy without myelopathy for evaluation. Pt states pain level is provoked at 6 /10 in intensity, constant, localized in the cervical spine, predominantly axial, sharp in character w occasional shooting pain towards the RUE. Pain is provoked by standing from a sitting position. Pain is alleviated by chiropractic treatments years ago, PT x 6wks which ended in February 2024, physician guided exercises 4-5 times weekly since February 2024, medications, heat, ice, repositioning and rest. Interventional procedures include COLTEN L5-S1 x3, COLTEN C6-C7 x1 (Mar 2024) Medications include Tramadol, Ibu REVIEW OF ORGAN SYSTEMS: CONSTITUTIONAL: No fevers or chills. No recent weight loss. NEUROLOGICAL: + numbness and tingling along the distal extremities. No seizure disorders or headaches. MUSCULOSKELETAL: + pain PSYCHIATRIC: Denies current depression or suicidal t houghts. Physical Examinations : Constitutional : Cooperative , not in acute distress . Neurologic : Cranial nerve II to XII intact. No focal neurological deficits. Psychiatric : alert & oriented x 3. Matching mood & appropriate affect. Judgment & insight intact. Musculoskeletal : Cervical Spine Motor strength in the deltoid and biceps: Normal right side. Normal Left side Motor strength biceps and the wrist extensors: Normal right side . Normal left side Motor strength in the triceps muscle: Normal right side. Normal left side Deep tendon reflexes: Normal at the bi ceps. Normal at Brachioradialis. Normal at triceps Vertebral body tenderness to deep palpation over C6 Cervical facet loading test: positive bilaterally Spurling test: positive R C6-7 Neck distraction test: positive bilaterally Samantha sign: positive bilaterally Lumbar spine Motor strength lower extremities ,thigh and legs 5/5 Right side , 5/5 Left side Deep tendon reflexes : Normal Knee Jerk. Normal Ankle Jerk Vertebral body tenderness over L5 Cespedes Test positive Lumbar facet Loading Test: positive Right / positive Left Range of motion of the lumbar spine Flexion 30 degrees, extension 10 degrees Straight Leg Raise test: Left/ Right positive at <35 degrees Olga test: positive right / positive left. Severe tenderness over the Sacroiliac joint on the Right / Left sides Gaenslen test: positive bilaterally Seated flexion test: positive bilaterally. Sacral spine : Severe tenderness over the Sacroiliac joint: right side / left side Range of motion: Flexion of the lumbar spine <60 degrees Range of motion: Extension of the lumbar spine <20 degrees Gaenslen's Test positive Rico's Test positive Olga test: positive right side / lef t side Thigh Thrust Test Sacral Thrust Test Imaging: MRI non contrast of the lumbar spine from 03/11/23 reviewed MRI non contrast of the cervical spine from 02/07/24 reviewed Assessment/ Plan : Lumbar spondylosis, Cervical radiculopathy Recommendation of COLTEN C6-C7 #2. Risks, benefits of procedure discussed and pt verbalized understanding. Protocol for discontinuation/ continuation of medications андрей procedure discussed. All questions answered. I have spent greater than 30 minutes on patient care today. Dr Logan was available by phone for the evaluation of this patient. The time was used to review the medical records including relevant urine studies and Prescription history (MAPs), review of the available imaging, evaluation and examination of the patient, coordination of care with the medical staff and if applicable referring physicians, as well as creation of the medical record PQRS Narrative: Smoking Status Never smoker Hx Alcohol Use (MH) Yes Home Medications: Ambulatory Orders Montelukast Sodium [Singulair] 10 mg PO HS 30 Days tab 08/27/21 Alpha Lipoic Acid 600 mg PO DAILY 05/12/23 Ascorbic Acid [Vitamin C] 2,000 mg PO DAILY 05/12/23 Calcium Carbonate [Calcium] 1,200 mg PO DAILY 05/12/23 Cholecalciferol [Vitamin D3 (25 Mcg = 1000 Iu)] 50 mcg PO DAILY 05/12/23 Ferrous Sulfate [Iron (65 MG Elemental)] 325 mg PO DAILY 05/12/23 S-Adenosylmethionine Sul Tosyl [Yuri-E] 400 mg PO DAILY 05/12/23 Turmeric Root Extract [Turmeric] 500 mg PO DAILY 05/12/23 Gabapentin 300 mg PO QAM 01/08/24 Gabapentin 600 mg PO HS 01/08/24 lisinopriL [Zestril] 5 mg PO DAILY 01/11/24 Vilazodone HCl 20 mg PO DAILY 04/10/24 Metoprolol Succinate [Metoprolol Succinate ER] 25 mg PO DAILY 07/15/24 Amitriptyline HCl 25 mg PO BID 08/19/24 Cyclobenzaprine [Flexeril] 5 mg PO TID 08/19/24 LORazepam [Ativan] 5 mg PO 08/19/24 traMADol HCl [Ultram] 50 mg PO Q6HR PRN 08/19/24 valACYclovir HCL [Valacyclovir] 1,000 mg PO 08/19/24 Controlled Substance Measures - Controlled Substance Measures Is patient prescribed a controlled substance at discharge?: No
== END ==
LOC: PNWHC3 10:50
PROVIDERS: ATTEND Specialist
DX: M47.892 Other spondylosis, cervical region
CPT/HCPCS: 99211

== ENCOUNTER 2024-09-03 08:09 | Day surgery (SDC) | payer MEDICAID ==
[2024-09-03 09:24] VITALS: TEMP 97.8
[2024-09-03] MEDS ORDERED: IOPAMIDOL M300 15ML VIAL ONE (10:39)
[2024-09-03] MEDS ORDERED: ROPIVACAINE 5MG/ML 20ML VIAL ONE (10:39)
[2024-09-03] MEDS ORDERED: DEXAMETHASONE SOD PHOSPHATE 10 MG/ML 1 ML VIAL ONE (10:39)
--- NOTE | 2024-09-03 11:03 | FL ---
Fluoroscopy INDICATION: Pain FINDINGS: Fluoroscopy time: 16.5 seconds. Total dose area product (DAP) in uGy*m?, mGy*cm? (or similar): 0.56860 Images obtained: 3. Cervical placement of needle is evident. IMPRESSION: 1. Documentation of fluoroscopy. [facility] , 09/03/2024 11:01 AM
[2024-09-03 11:23] VITALS: BP 129/71; PULSE 79; RESP 18
--- NOTE | 2024-09-03 11:47 | P.PCN ---
Description of Procedure: PROCEDURE 1. Injection of radio contrast material into cervical epidural space, cervical epidurogram, interpretation of cervical epidurogram, Cervical epidural steroid injection under fluoroscopic guidance, C6-7 (fluoroscopy images available in the radiology department ) 2. Cervical epidurogram. PREOPERATIVE DIAGNOSIS: 1- Cervical Degenerative Disc Diseases 2- Cervical radiculopathy., 3-cervical spondylosis with cervical Facet arthropathy without myelopathy.4-cervical spinal stenosis POSTOPERATIVE DIAGNOSIS: : 1- Cervical Degenerative Disc Diseases , 2- Cervical radiculopathy. 3-,cervical spondylosis with cervical Facet arthropathy without myelopathy. 4-cervical spinal stenosis ANESTHESIA: Local anesthetics infiltration. In the OR continuous pulse ox, EKG, blood pressure and verbal communication was maintained. EBL : None PROCEDURE INDICATION: The patient with neck pain and radiculitis unresponsive to conservative treatment consents for procedure. Discussed the procedure, alternatives and possible complications which may include increased pain, infection, bleeding, nerve damage, paralysis all of which could be permanent. Patient understands and all questions were answered. PROCEDURE DESCRIPTION : After getting consent patient was taken to the OR , positioned in prone position and time out was completed. A pillow was placed under the patients chest to increase the cervical interlaminar space. The cervical area was prepped and draped in the usual sterile fashion. Using anterior-posterior fluoroscopy, interlaminar space was identified and the skin over this site was marked and then infiltrated with 1% lidocaine subcutaneously. Subsequently, a 20-gauge 3-1/2-inch Tuohy epidural needle was inserted and advanced toward the epidural space with the loss of resistance technique using a syringe filled with preservative-free normal saline and guided by AP and lateral fluoroscopy. Negative CSF, negative blood, negative paresthesia. The correct needle position in the epidural space was verified with the injection of 2 mL of the water soluble contrast dye [id number]-200 and observing an excellent epidurogram with the epidural spread of the dye, after repeat negative aspiration 3 mL solution was injected which consists of 1 mL of preservative-free normal saline mixed with 2 mL of 20 mg dexamethasone and a washout of epidurogram was seen. Needle was withdrawn intact, skin was cleansed, and bandages were applied. Disposition: Patient tolerated the procedure well. No complication. Patient was placed in supine position and transferred to the recovery room area in stable condition and there was no evidence of upper or lower extremity motor or sensory deficit after the procedure patient was discharged from recovery room after discharge criteria met and home discharge instructions was given by the staff and patient will follow with the pain clinic in 2-4 weeks
== END 2024-09-03 11:26 | disposition home or self-care (01) ==
LOC: ORPAIN 08:09
PROVIDERS: ATTEND Pain Medicine Interventional Pain Medicine
DX: M47.22 Other spondylosis with radiculopathy, cervical region (principal); M48.02 Spinal stenosis, cervical region; Z88.0 Allergy status to penicillin; Z88.1 Allergy status to other antibiotic agents
CPT/HCPCS: 62321; 81025

== ENCOUNTER → 2024-09-18 | Outpatient (CLI) | payer MEDICAID ==
[2024-09-18 09:55] VITALS: BP 102/68; PULSE 91; RESP 16
--- NOTE | 2024-09-18 14:18 | P.PAINPG ---
PQRS Measure Charge Sheet Comment: HISTORY OF PRESENT ILLNESS: A 43 yr old female presents today w severe and chronic neck pain > 3 mo, LBP x 6 yrs secondary to radiculopathy, spondylosis and facet arthropathy without myelopathy for evaluation s/p COLTEN C6-C7 #2. Pt states she experienced > 50% pain relief x 2 wks s/p procedure. Pt states pain level is provoked at 3-6 /10 in intensity, intermittent, localized in the cervical spine, predominantly axial, sharp in character without shooting pain. Pain is provoked by rotation. Pain is alleviated by chiropractic treatments years ago, PT x 6 wks which ended in February 2024, physician guided exercises 4-5 times weekly since February 2024, medications, heat, ice, repositioning and rest. Interventional procedures include COLTEN L5-S1 x3, COLTEN C6-C7 x2 (Mar 2024, Aug 2024) Medications include Tramadol, Ibu REVIEW OF ORGAN SYSTEMS: CONSTITUTIONAL: No fevers or chills. No recent weight loss. NEUROLOGICAL: + numbness and tingling along the distal extremities. No seizure disorders or headaches. MUSCULOSKELETAL: + pain PSYCHIATRIC: Denies current depression or suicidal thoughts. Physical Examinations : Constitutional : Cooperative , not in acute distress . Neurologic : Cranial nerve II to XII intact. No focal neurological deficits. Psychiatric : alert & oriented x 3. Matching mood & appropriate affect. Judgment & insight intact. Musculoskeletal : Cervical Spine Motor strength in the deltoid and biceps: Normal right side. Normal Left side Motor strength biceps and the wrist extensors: Normal right side . Normal left side Motor strength in the triceps muscle: Normal right side. Normal left side Deep tendon reflexes: Normal at the biceps. Normal at Brachioradialis. Normal at triceps Vertebral body tenderness to deep palpation over C6 Cervical facet loading test: positive BL C4-C5/ C5-C6 Spurling test: positive R C6-7 Neck distraction test: positive bilaterally Samantha sign: positive bilaterally Lumbar spine Motor strength lower extremities ,thigh and legs 5/5 Right side , 5/5 Left side Deep tendon reflexes : Normal Knee Jerk. Normal Ankle Jerk Vertebral body tenderness over L5 Cespedes Test positive Lumbar facet Loading Test: positive Right / positive Left Range of motion of the lumbar spine Flexion 30 degrees, extension 10 degrees Straight Leg Raise test: Left/ Right positive at <35 degrees Olga test: positive right / positive left. Severe tenderness over the Sacroiliac joint on the Right / Left sides Gaenslen test: positive bilaterally Seated flexion test: positive bilaterally. Sacral spine : Severe tenderness over the Sacroiliac joint: right side / left side Range of motion: Flexion of the lumbar spine <60 degrees Range of motion: Extension of the lum bar spine <20 degrees Gaenslen's Test positive Rico's Test positive Olga test: positive right side / left side Thigh Thrust Test Sacral Thrust Test Imaging: MRI non contrast of the lumbar spine from 03/11/23 reviewed MRI non contrast of the cervical spine from 02/07/24 reviewed Assessment/ Plan : Lumbar spondylosis, Cervical radiculopathy Recommendation of BL MBB C4-C5/ C5-C6 #1. Risks, benefits of procedure discussed and pt verbalized understanding. Protocol for discontinuation/ continuation of medications андрей procedure discussed. Minimal anesthesia including Fentanyl and Versed if clinically indicated. All questions answered. I have spent greater than 30 minutes on patient care today. Dr Logan was available by phone for the evaluation of this patient. The time was used to review the medical records including relevant urine studies and Prescription history (MAPs), review of the available imaging, evaluation and examination of the patient, coordination of care with the medical staff and if applicable referring physicians, as well as creation of the medical record PQRS Narrative: Smoking Status Never smoker Hx Alcohol Use (MH) Yes Home Medications: Ambulatory Orders Montelukast Sodium [Singulair] 10 mg PO HS 30 Days tab 08/27/21 Alpha Lipoic Acid 600 mg PO DAILY 05/12/23 Ascorbic Acid [Vitamin C] 2,000 mg PO DAILY 05/12/23 Calcium Carbonate [Calcium] 1,200 mg PO DAILY 05/12/23 Cholecalciferol [Vitamin D3 (25 Mcg = 1000 Iu)] 50 mcg PO DAILY 05/12/23 Ferrous Sulfate [Iron (65 MG Elemental)] 325 mg PO DAILY 05/12/23 S-Adenosylmethionine Sul Tosyl [Yuri-E] 400 mg PO DAILY 05/12/23 Turmeric Root Extract [Turmeric] 500 mg PO DAILY 05/12/23 Gabapentin 300 mg PO QAM 01/08/24 Gabapentin 600 mg PO HS 01/08/24 lisinopriL [Zestril] 2.5 mg PO DAILY 01/11/24 Vilazodone HCl 20 mg PO DAILY 04/10/24 Metoprolol Succinate [Metoprolol Succinate ER] 50 mg PO DAILY 07/15/24 Amitriptyline HCl 25 mg PO BID 08/19/24 Cyclobenzaprine [Flexeril] 5 mg PO TID PRN 08/19/24 LORazepam [Ativan] 0.5 mg PO DAILY PRN 08/19/24 traMADol HCl [Ultram] 50 mg PO Q6HR PRN 08/19/24 valACYclovir HCL [Valacyclovir] 1,000 mg PO DAILY 08/19/24 Controlled Substance Measures - Controlled Substance Measures Is patient prescribed a controlled substance at discharge?: No
== END ==
LOC: PNWHC3 09:38
PROVIDERS: ATTEND Specialist
DX: M54.12 Radiculopathy, cervical region (principal); M47.816 Spondylosis without myelopathy or radiculopathy, lumbar region; Z88.0 Allergy status to penicillin; Z88.1 Allergy status to other antibiotic agents
CPT/HCPCS: 99211

== ENCOUNTER → 2024-09-18 | Outpatient (CLI) | payer MEDICAID ==
[2024-09-18 16:04] LABS: Blood Urea Nitrogen 12.4 mg/dL (9.0-27.0); Calcium 9.4 mg/dL (8.7-10.3); Carbon Dioxide 23.2 mmol/L (21.6-31.8); Chloride 105 mmol/L (96-109); Glucose 113 mg/dL (70-110); Potassium 4.6 mmol/L (3.5-5.5); Sodium 139 mmol/L (135-145)
[2024-09-18 17:48] LABS: NT-Pro-B-Type Natriuretic Pept 36 pg/mL (0-125)
== END | disposition home or self-care (01) ==
LOC: LABWHC1 10:05
PROVIDERS: ATTEND Nurse Practitioner Adult Health
DX: R60.0 Localized edema (principal)
CPT/HCPCS: 36415; 80048; 83880

== ENCOUNTER 2024-10-15 06:24 | Day surgery (SDC) | payer MEDICAID ==
[2024-10-14 12:25] VITALS: BMI 42.0
[2024-10-15 06:49] VITALS: RESP 16; TEMP 97.9
[2024-10-15] MEDS: IV FLUID CONTINUATION 1,000 ML IV ONE ×2 (06:57→07:50)
[2024-10-15] MEDS ORDERED: LACTATED RINGERS 1,000 ML IV SCH (07:00)
[2024-10-15] MEDS ORDERED: ROPIVACAINE 5MG/ML 20ML VIAL ONE (07:22)
[2024-10-15] MEDS ORDERED: MIDAZOLAM 2 MG/2 ML VIAL ONE (07:22)
[2024-10-15] MEDS ORDERED: fentaNYL (PF) 50 MCG/ML 2 ML AMP ONE (07:22)
--- NOTE | 2024-10-15 07:46 | P.PCN ---
Date of Procedure: 10/15/24 Procedure(s) Performed: PREOPERATIVE DIAGNOSIS: 1-Cervical Spondylosis with Facet Arthropathy.without myelopathy. 2-cervical degenerative disc disease POSTOPERATIVE DIAGNOSIS:1-cervical spondylosis with facet arthropathy without myelopathy. 2-cervical degenerative disc disease PROCEDURES: Diagnostic bilateral C4 , C5 , and C6 medial branch blocks, with fluoroscopic guidance (fluoroscopy images available in radiology department ) ( to target the facet joint at bilateral C4- 5 , C5- 6 ) ANESTHESIA: moderate sedation with Versed 2 mg , and fentanyl 50 micrograms (sedation started at 07:22, end 07:41 ) EBL: Minimal PROCEDURE INDICATION: The patient with neck pain secondary to cervical arthropathy unresponsive to more conservative treatments. PROCEDURE DESCRIPTION / TECHNIQUE: The patient was seen and identified in the preoperative area. Risks, benefits, complications, and alternatives were discussed with the patient, the patient agreed to proceed with the procedure and signed the consent. IV was started. Vital signs remained stable throughout the procedure. Patient was taken to the OR and time out was completed. The patient was placed in the prone position on the procedure table. A pillow was placed under the patients chest to increase the cervical interlaminar space. The cervical area was prepped and draped in the usual sterile fashion. Critical pause was taken. Vital signs were closely monitored during the procedure. Conscious sedation was used during the procedure to decrease patients anxiety. Using cross-table lateral fluoroscopy, the centroid of the trapezoid of right C4 , C5 ,C6, was identified, marked, and localized with 1% lidocaine 1 ml at each level for skin and Sub Q infiltrations . Subsequently, a 22 G 3 spinal needle was advanced guided by fluoroscopy to the centroid of the trapezoid of Right C4 , C5, C6 . Brielle tip position was confirmed at the centroid of the trapezoids of Right C4 , C5 ,C6 with anteroposterior fluoroscopy. Subsequently, 1.5 ml of preservative-free Ropivacaine 0.5% and half ml of the was injected after negative aspiration for blood and CSF. Brielle was then removed intact the same procedure was repeated at the left C4 , C5 , C6 levels. COMPLICATIONS: No acute complications. DISPOSITION / PLANS: The patient was placed in a supine position and transferred to the recovery area in a stable condition for observation and was discharged from the recovery room after meeting discharge criteria. Home discharge instructions given to the patient by the staff. The patient was reexamined prior to discharge. The patient will schedule a follow up in the clinic in 2-4 weeks.
[2024-10-15 08:06] VITALS: BP 104/72; PULSE 79
--- NOTE | 2024-10-15 08:11 | FL ---
Fluoroscopy History: FACET BLOCK ZAMZAM C/T FACET BLOCK ZAMZAM C/T [facility], , 10/15/2024 8:09 AM
== END 2024-10-15 08:30 | disposition home or self-care (01) ==
LOC: ORPAIN 06:24
PROVIDERS: ATTEND Specialist
DX: M47.812 Spondylosis without myelopathy or radiculopathy, cervical region (principal); M50.322 Other cervical disc degeneration at C5-C6 level; Z88.0 Allergy status to penicillin; Z88.1 Allergy status to other antibiotic agents
CPT/HCPCS: 81025; 64490; 64491 ×2; 99152; J2250; J3010; J2795

== ENCOUNTER → 2024-11-11 | Outpatient (CLI) | payer MEDICAID ==
[2024-11-11 09:54] VITALS: BP 113/70; PULSE 83; RESP 19; TEMP 98.3
--- NOTE | 2024-11-11 15:40 | P.PAINPG ---
PQRS Measure Charge Sheet Comment: HISTORY OF PRESENT ILLNESS: A 43 yr old female presents today w severe and chronic neck pain > 3 mo, LBP x 6 yrs secondary to radiculopathy, spondylosis and facet arthropathy without myelopathy for evaluation s/p BL MBB C4-C5/ C5-C6 #1. Pt states she experienced 80% pain relief x 6 hrs s/p procedure. Pt states pain level is provoked at 6 /10 in intensity, intermittent, localized in the cervical spine, predominantly axial, sharp in character without shooting pain. Pain is provoked by rotation. Pain is alleviated by chiropractic treatments years ago, PT x 6 wks which ended in February 2024, physician guided exercises 4-5 times weekly since February 2024, medications, heat, ice, repositioning and rest. Interventional procedures include COLTEN L5-S1 x3, COLTEN C6-C7 x2 (Mar 2024, Aug 2024), BL MBB C4-C6 x1 Medications include Tramadol, Ibu REVIEW OF ORGAN SYSTEMS: CONSTITUTIONAL: No fevers or chills. No recent weight loss. NEUROLOGICAL: + numbness and tingling along the distal extremities. No seizure disorders or headaches. MUSCULOSKELETAL: + pain PSYCHIATRIC: Denies current depression or suicidal thoughts. Physical Examinations : Constitutional : Cooperative , not in acute distress . Neurologic : Cranial nerve II to XII intact. No focal neurological deficits. Psychiatric : alert & oriented x 3. Matching mood & appropriate affect. Judgment & insight intact. Musculoskeletal : Cervical Spine Motor strength in the deltoid and biceps: Normal right side. Normal Left side Motor strength biceps and the wrist extensors: Normal right side . Normal left side Motor strength in the triceps muscle: Normal right side. Normal left side Deep tendon reflexes: Normal at the biceps. Normal at Brachioradialis. Normal at triceps Vertebral body tenderness to deep palpation over C6 Cervical facet loading test: positive BL C4-C5/ C5-C6 Spurling test: positive R C6-7 Neck distraction test: positive bilaterally Samantha sign: positive bilaterally Lumbar spine Motor strength lower extremities ,thigh and legs 5/5 Right side , 5/5 Left side Deep tendon reflexes : Normal Knee Jerk. Normal Ankle Jerk Vertebral body tenderness over L5 Cespedes Test positive Lumbar facet Loading Test: positive Right / positive Left Range of motion of the lumbar spine Flexion 30 degrees, extension 10 degrees Straight Leg Raise test: Left/ Right positive at <35 degrees Olga test: positive right / positive left. Severe tenderness over the Sacroiliac joint on the Right / Left sides Gaenslen test: positive bilaterally Seated flexion test: positive bilaterally. Sacral spine : Severe tenderness over the Sacroiliac joint: right side / left side Range of motion: Flexion of the lumbar spine <60 degrees Range of motion: Extension of the lumbar spine <20 degrees Gaenslen's Test positive Rico's Test positive Olga test: positive right side / left side Thigh Thrust Test Sacral Thrust Test Imaging: MRI non contrast of the lumbar spine from 03/11/23 reviewed MRI non contrast of the cervical spine from 02/07/24 reviewed Assessment/ Plan : Lumbar spondylosis, Cervical radiculopathy Recommendation of BL MBB C4-C5/ C5-C6 #2. Risks, benefits of procedure discussed and pt verbalized understanding. Protocol for discontinuation/ continuation of medications андрей procedure discussed. Minimal anesthesia including Fentanyl and Versed if clinically indicated. All questions answered. I have spent greater than 30 minutes on patient care today. Dr Logan was available by phone for the evaluation of this patient. The time was used to review the medical records including relevant urine studies and Prescription history (MAPs), review of the available imaging, evaluation and examination of the patient, coordination of care with the medical staff and if applicable referring physicians, as well as creation of the medical record PQRS Narrative: Smoking Status Never smoker Hx Alcohol Use (MH) Yes Home Medications: Ambulatory Orders Montelukast Sodium [Singulair] 10 mg PO HS 30 Days tab 08/27/21 Alpha Lipoic Acid 600 mg PO DAILY 05/12/23 Ascorbic Acid [Vitamin C] 2,000 mg PO DAILY 05/12/23 Calcium Carbonate [Calcium] 1,200 mg PO DAILY 05/12/23 Cholecalciferol [Vitamin D3 (25 Mcg = 1000 Iu)] 50 mcg PO DAILY 05/12/23 Ferrous Sulfate [Iron (65 MG Elemental)] 325 mg PO DAILY 05/12/23 S-Adenosylmethionine Sul Tosyl [Yuri-E] 400 mg PO DAILY 05/12/23 Turmeric Root Extract [Turmeric] 500 mg PO DAILY 05/12/23 Gabapentin 300 mg PO QAM 01/08/24 Gabapentin 600 mg PO HS 01/08/24 lisinopriL [Zestril] 2.5 mg PO DAILY 01/11/24 Vilazodone HCl 20 mg PO DAILY 04/10/24 Metoprolol Succinate [Metoprolol Succinate ER] 50 mg PO DAILY 07/15/24 Amitriptyline HCl 25 mg PO BID 08/19/24 Cyclobenzaprine [Flexeril] 5 mg PO TID PRN 08/19/24 LORazepam [Ativan] 0.5 mg PO DAILY PRN 08/19/24 traMADol HCl [Ultram] 50 mg PO Q6HR PRN 08/19/24 valACYclovir HCL [Valacyclovir] 1,000 mg PO DAILY 08/19/24 Isosorbide Mononitrate [Isosorbide Mononitrate ER] 30 mg PO DAILY 10/14/24 Controlled Substance Measures - Controlled Substance Measures Is patient prescribed a controlled substance at discharge?: No
== END ==
LOC: PNWHC3 09:14
PROVIDERS: ATTEND Specialist
DX: M54.12 Radiculopathy, cervical region (principal); M47.816 Spondylosis without myelopathy or radiculopathy, lumbar region; Z88.0 Allergy status to penicillin; Z88.8 Allergy status to other drugs, medicaments and biological substances
CPT/HCPCS: 99211

== ENCOUNTER → 2025-01-13 | Outpatient (CLI) | payer MEDICAID ==
[2025-01-13 20:59] LABS: Blood Urea Nitrogen 15.6 mg/dL (9.0-27.0); Calcium 9.8 mg/dL (8.7-10.3); Carbon Dioxide 24.1 mmol/L (21.6-31.8); Chloride 103 mmol/L (96-109); Glucose 100 mg/dL (70-110); Potassium 4.5 mmol/L (3.5-5.5); Sodium 140 mmol/L (135-145)
[2025-01-13 22:04] LABS: NT-Pro-B-Type Natriuretic Pept 47 pg/mL (0-125)
== END | disposition home or self-care (01) ==
LOC: LABWHC1 14:29
PROVIDERS: ATTEND Nurse Practitioner Adult Health
DX: I42.8 Other cardiomyopathies (principal); R06.02 Shortness of breath
CPT/HCPCS: 36415; 80048; 83880